=== PATIENT | male | born 1925 | race Caucasian/White ===

== ENCOUNTER 2016-08-14 22:13 | Inpatient (IN) | payer OTHER ==
[~2016-08-14] VITALS: Ht 177.8 cm; Wt 97.8 kg
[~2016-08-14 22:13] MED LIST: ACET-1311 PO; ACET1TAB84 PO; AVD5 PO; CARB25TA16 PO; CITA10TA4 PO; DXY100 PO; FRRS300 PO; FURO-85 PO; HYDR-5688 PO; LEVO25TA PO; LISI-729 PO; MELA1TAB3 PO; METO25TA56 PO; MOME50SP5 NAE; MOML PO; POLY335019 PO; POTA20TA16 PO; PRD5 PO; PRT40 PO; SIME80CH PO; SNK PO; SNM/25100 PO; TAMS0.4C38 PO; TRMCR130WC TOP
[2016-08-14] MEDS ORDERED: SENN-61 PO (23:09)
[2016-08-14] MEDS ORDERED: CARB25TA16 PO (23:09)
[2016-08-14] MEDS ORDERED: MELA1TAB54 PO (23:09)
[2016-08-14] MEDS ORDERED: MOME6000 NAE (23:09)
[2016-08-14] MEDS ORDERED: DUTA0.5C PO (23:09)
[2016-08-14] MEDS ORDERED: CYAN100020 PO (23:11)
[2016-08-14] MEDS ORDERED: ZNTT/150 PO ×2 (23:11)
[2016-08-14] MEDS ORDERED: DOCU-94 PO (23:11)
[2016-08-14 23:20] LABS: BASO % 0.7 %; BASO ABS # 0.06 K/uL (0-0.2); COMPLETE YES; EOS % 6.7 %; HEMATOCRIT 35.1 % (42-52); IG% 0.2 %; LYMPH % 17.9 %; LYMPH ABS # 1.45 K/uL (1.2-3.4); MEAN CELL VOLUME 92.6 fL (80-100); MEAN CORPUSCULAR HEMOGLOBIN 30.9 pg (25-34); MEAN CORPUSCULAR HGB CONC 33.3 g/dl (32-36); MEAN PLATELET VOLUME 9.2 fL (7.4-10.4); NEUT % 66.5 %; PLATELET COUNT 356 K/uL (130-400); RED BLOOD COUNT 3.79 M/uL (4.7-6.1); WHITE BLOOD COUNT 8.12 K/uL (4.8-10.8)
[2016-08-14 23:36] LABS: ALT/SGPT 6 U/L (12-78); BLOOD UREA NITROGEN 23 mg/dl (7-18); BUN/CREATININE RATIO 20.8 (10-20); CALCIUM 8.5 mg/dl (8.5-10.1); CARBON DIOXIDE 24 mmol/L (21-32); CHLORIDE 106 mmol/L (98-107); GLUCOSE 104 mg/dl (70-99); MAGNESIUM 2.2 mg/dl (1.8-2.4); POTASSIUM 4.6 mmol/L (3.5-5.1); SODIUM 140 mmol/L (136-145)
[2016-08-14 23:44] LABS: ALKALINE PHOSPHATASE 131 U/L (45-117); AST/SGOT 14 U/L (15-37); CKMB/CK RATIO 2.3 (0-3.0)
[2016-08-15] VITALS (8 sets, daily range): BP systolic 120–151; BP diastolic 64–79; PULSE 77–97; TEMP 36.6–36.8; O2SAT 95–98; Ht 177.8 cm; Wt 97.8 kg
[2016-08-15 00:05] LABS: PARTIAL THROMBOPLASTIN RATIO 1.2; PROTHROMBIN TIME (PATIENT) 10.4 SECONDS (9.0-12.0)
[2016-08-15] MEDS ORDERED: LEVAQUIN 750MG / 150ML D5W IV STA (00:55)
[2016-08-15 00:58] LABS: URINE APPEARANCE CLEAR (CLEAR); URINE BILIRUBIN NEG (NEG); URINE COLOR YELLOW; URINE EPITHELIAL CELL AUTO >30 /lpf (0-5); URINE NITRITE POS (NEG); URINE PH 5.5 (4.5-7.5); URINE SPECIFIC GRAVITY 1.018 (1.000-1.030); UROBILINOGEN NEG (NEG)
[2016-08-15 01:02] LABS: MANUAL MICROSCOPIC REQUIRED? NO; REVIEW REQ? NO
[2016-08-15] MEDS ORDERED: ACETAMINOPHEN 325 MG TAB PO PRN (01:45)
[2016-08-15] MEDS ORDERED: ONDANSETRON INJ 2 MG/ML 2 ML VIAL IV PRN (01:45)
[2016-08-15] MEDS ORDERED: MAGNESIUM HYDROXIDE SUSP 30 ML UDC PO PRN ×2 (01:45)
[2016-08-15] MEDS ORDERED: ALUMINUM/MAGNESIUM/SIMETH (MAALOX MAX) 30 ML UDC PO PRN (01:45)
[2016-08-15] MEDS ORDERED: POLYETHYLENE (MIRALAX) 17 GM PACK PO PRN (01:45)
--- NOTE | 2016-08-15 02:32 | History and Physical ---
History & Physical Date & Time of Service: Aug 15, 2016 at 02:14 Chief Complaint: SOB Primary Care Physician: Loni Hodges MD History of Present Illness Source: patient 89 y/o M with Hx of Parkinson disease, HTN, BPH. Presents from home with weakness and confusion at behest of family. The pt himself was not sure why he was in the hospital although he was able to have a lucid conversation at the time of admission. He does not recall any confusion, denies any fevers, SOB, cough, diarrhea or dysuria. Initial labs reveal a (+) UA. Past Medical/Surgical History Medical Problems: (1) BPH (benign prostatic hyperplasia) Status: Chronic (2) Chronic edema Permanent Comment: BLLE Status: Chronic (3) Dyslipidemia Status: Chronic (4) Hemorrhoids Status: Chronic (5) HTN (hypertension) Status: Chronic (6) Osteoarthritis Status: Chronic (7) Parkinsonism Status: Chronic (8) Paroxysmal atrial fibrillation Permanent Comment: onset 10/2013, s/p conversion to sinus with metoprolol Status: Chronic (9) Spinal stenosis Status: Chronic Surgical Problems: (1) History of carpal tunnel surgery of left wrist Status: Chronic (2) History of knee replacement Status: Resolved (3) Hx of tonsillectomy Status: Resolved (4) Status post laparoscopic hernia repair Status: Chronic Family History COPD (chronic obstructive pulmonary disease) Social History Smoking Status: Never Smoker Marital Status: Housing status: lives with family Occupational Status: retired Immunizations History of Influenza Vaccine: Yes History of Tetanus Vaccine?: Unknown History of Pneumococcal: less than 10yrs ago. History of Hepatitis B Vaccine: No Multi-Drug Resistant Organisms History of MDRO: Yes Type of MDRO: MRSA Allergies Coded Allergies: Piperacillin (Verified Allergy, Intermediate, rash, 08/14/16) Tazobactam (Verified Allergy, Intermediate, rash, 08/14/16) Vancomycin (Verified Allergy, Intermediate, Rash, 08/14/16) Lorazepam (Verified Allergy, Mild, DELIRIUM, 08/14/16) Home Medications Scheduled Acetaminophen (Tylenol Arthritis Ext Rel), 650 MG PO TID Acetaminophen (Tylenol), 325 MG PO TID Citalopram Hydrobromide (Citalopram Hydrobromide), 10 MG PO DAILY Cyanocobalamin (Vitamin B12), 1,000 MCG PO QAM Docusate Sodium (Colace), 1 CAP PO BID Dutasteride (Avodart), 0.5 MG PO QAM Furosemide (Lasix), 20 MG PO QAM Levodopa/Carbidopa (Sinemet 25MG/100MG), 2 TAB PO TID@0900,1300,1700 Levodopa/Carbidopa (Sinemet Cr 25MG/100MG), 1 TAB PO HS Levothyroxine Sodium (Synthroid), 25 MCG PO DAILY Lisinopril (Zestril), 2.5 MG PO QAM Melatonin (Melatonin), 5 MG PO HS Metoprolol Tartrate (Lopressor) (Lopressor), 25 MG PO QAM Mometasone Furoate (Nasal) (Mometasone Furoate), 2 SPRAY DIETER HS Polyethylene Glycol 3350 (Miralax), 17 GM PO DAILY Potassium Ext Rel (Klor-Con), 10 MEQ PO Q2D Ranitidine (Zantac), 150 MG PO DAILY Ranitidine HCl (Zantac), 75 MG PO QPM Tamsulosin Hcl (Flomax), 0.4 MG PO QPM Triamcinolone Acet (Aristocort 0.1%), 1 APPLN TOP DAILY Scheduled PRN Magnesium Hydroxide (Milk Of Magnesia), 30 ML PO DAILY PRN for NO BM 3 DAYS Senna (Senokot), 2 TAB PO QAM PRN for Constipation Simethicone (Gas-X), 80 MG PO QID PRN for GAS Review of Systems May not be a reliable historian as he does not recall earlier confusion - currently denies any symptoms including dysuria - all systems negative excepting as per HPI per family. Constitutional: + sweats Respiratory: No dyspnea at rest, No dyspnea on exertion, No shortness of breath Physical Exam Vital Signs Date Time Temp Pulse Resp B/P Pulse Ox O2 Delivery O2 Flow Rate FiO2 08/15/16 00:51 82 16 146/76 98 Room Air 08/14/16 22:42 81 08/14/16 22:41 Room Air 08/14/16 22:36 36.7 85 18 153/89 96 Room Air 08/14/16 22:36 Room Air General Appearance: WD/WN, no apparent distress, + pertinent finding (PLeasant elderly male AAO x 2 - no distress) Head: normocephalic, atraumatic Eyes: normal inspection, EOMI ENT: normal ENT inspection, pharynx normal Neck: supple, thyroid normal Respiratory/Chest: chest non-tender, lungs clear, normal breath sounds, no respiratory distress, no accessory muscle use Cardiovascular: regular rate, rhythm, no edema, no gallop, no JVD, no murmur, normal peripheral pulses Abdomen/GI: normal bowel sounds, non tender, soft Back: normal inspection, no CVA tenderness Extremities/Musculoskelatal: + pedal edema (3+ edema B/L) Neurologic/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: 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, no motor/sensory deficits, alert, normal mood/affect, normal reflexes, + pertinent finding (AAO x 2) Skin: normal color, warm/dry, no rash Diagnostics Laboratory Results Results Past 24 Hours Test 08/14/16 23:09 08/14/16 23:36 08/15/16 00:43 Range/Units White Blood Count 8.12 4.8-10.8 K/uL Red Blood Count 3.79 4.7-6.1 M/uL Hemoglobin 11.7 14.0-18.0 g/dL Hematocrit 35.1 42-52 % Mean Corpuscular Volume 92.6 80-100 fL Mean Corpuscular Hemoglobin 30.9 25-34 pg Mean Corpuscular Hemoglobin Concent 33.3 32-36 g/dl Platelet Count 356 130-400 K/uL Mean Platelet Volume 9.2 7.4-10.4 fL Neutrophils (%) (Auto) 66.5 % Lymphocytes (%) (Auto) 17.9 % Monocytes (%) (Auto) 8.0 % Eosinophils (%) (Auto) 6.7 % Basophils (%) (Auto) 0.7 % Neutrophils # (Auto) 5.40 1.4-6.5 K/uL Lymphocytes # (Auto) 1.45 1.2-3.4 K/uL Monocytes # (Auto) 0.65 0.11-0.59 K/uL Eosinophils # (Auto) 0.54 0-0.5 K/uL Basophils # (Auto) 0.06 0-0.2 K/uL RDW Standard Deviation 52.9 36.4-46.3 fL RDW Coefficient of Variation 15.6 11.5-14.5 % Immature Granulocyte % (Auto) 0.2 % Immature Granulocyte # (Auto) 0.02 0.00-0.02 K/uL Sodium Level 140 136-145 mmol/L Potassium Level 4.6 3.5-5.1 mmol/L Chloride Level 106 98-107 mmol/L Carbon Dioxide Level 24 21-32 mmol/L Anion Gap 10.0 3-11 mmol/L Blood Urea Nitrogen 23 7-18 mg/dl Creatinine 1.10 0.60-1.40 mg/dl Est Creatinine Clear Calc Drug Dose 53.4 ml/min Estimated GFR () 68.6 Estimated GFR (Non- 59.2 BUN/Creatinine Ratio 20.8 10-20 Random Glucose 104 70-99 mg/dl Calcium Level 8.5 8.5-10.1 mg/dl Magnesium Level 2.2 1.8-2.4 mg/dl Total Bilirubin 0.3 0.2-1 mg/dl Direct Bilirubin < 0.1 0-0.2 mg/dl Aspartate Amino Transf (AST/SGOT) 14 15-37 U/L Alanine Aminotransferase (ALT/SGPT) 6 12-78 U/L Alkaline Phosphatase 131 45-117 U/L Total Creatine Kinase 30 39-308 U/L Creatine Kinase MB 0.7 0.5-3.6 ng/ml Creatine Kinase MB Ratio 2.3 0-3.0 Troponin I < 0.015 0-0.045 ng/ml Pro-B-Type Natriuretic Peptide 741 0-1800 pg/ml Total Protein 7.5 6.4-8.2 gm/dl Albumin 3.1 3.4-5.0 gm/dl Lipase 163 73-393 U/L Thyroid Stimulating Hormone (TSH) 1.740 0.300-4.500 uIu/ml Prothrombin Time 10.4 9.0-12.0 SECONDS Prothromb Time International Ratio 1.0 0.9-1.1 Activated Partial Thromboplast Time 30.3 21.0-31.0 SECONDS Partial Thromboplastin Ratio 1.2 Urine Color YELLOW Urine Appearance CLEAR CLEAR Urine pH 5.5 4.5-7.5 Urine Specific [place] 1.018 1.000-1.030 Urine Protein NEG NEG Urine Glucose (UA) NEG NEG Urine Ketones NEG NEG Urine Occult Blood NEG NEG Urine Nitrite POS NEG Urine Bilirubin NEG NEG Urine Urobilinogen NEG NEG Urine Leukocyte Esterase SMALL NEG Urine WBC (Auto) 10-30 0-5 /hpf Urine RBC (Auto) 0-4 0-4 /hpf Urine Hyaline Casts (Auto) 1-5 0-5 /lpf Urine Epithelial Cells (Auto) >30 0-5 /lpf Urine Bacteria (Auto) 4+ NEG Microbiology Results 08/15/16 Urine Culture, Received Pending Diagnostic Radiology Head CT negative for acute findings Normal EKG Impression Assessment and Plan 89 y/o M with Hx of Parkinson disease, HTN, BPH. Presents from home with weakness and confusion at behest of family. The pt himself was not sure why he was in the hospital although he was able to have a lucid conversation at the time of admission. He does not recall any confusion, denies any fevers, SOB, cough, diarrhea or dysuria. Initial labs reveal a (+) UA. 1) AMS - weakness - likely due to UTI - underlying Parkinson may contribute - pt placed on Levaquin pending culture results - will treat agitation PRN although he is calm and lucid on admission. 2) Parkinson disease - cont Sinemet. 3) HTN - cont home meds 4) LE edema - cont lasix - may need dose adjustment Full code - Heparin prophylaxis Total time for this admit including cahrt review , review of meds, labs, imaging , EKG - discussion with pt and ER attending 32 min Level of Care Med/Surg Resuscitation Status FULL RESUSCITATION VTE Prophylaxis VTE Risk Assessment Done? Y/N: Yes Risk Level: Moderate Given or contraindicated: Unfractionated heparin SQ
--- NOTE | 2016-08-15 03:01 | EMERGENCY ROOM VISIT NOTE ---
History Report prepared by Ruth: David Aleman Under the Supervision of: Dr. Александр Hayden M.D. First contact with patient: 22:26 Chief Complaint: SHORTNESS OF BREATH Stated Complaint: SOB History of Present Illness The patient is a 89 year old male who presents to the Emergency Room with complaints of shortness of breath that began this evening. The patient has not been sleeping well over the past few days due to strange dreams. Five and a half hours ago the patient was in a deep sleep. His family tried to wake him up an hour later to get him to take his medicine. Per the family, he got violent. They state that his breathing was labored while he was sleeping. The home nurse states that he has a change in his left lung. He has a past medical history of Parkinson's Disease. The family states that he is better than normal at the moment in that regard. He is not disoriented. He has not urinated much today. His last bowel movement was yesterday. The patient states that he feels like he took a "happy pill." He also feels tight around his abdomen. He received 40 of his Lasix today. Patient denies LOC, headache, fevers, chills, diaphoresis, visual changes, neck pain, chest pain, nausea, vomiting, abdominal pain, back pain, melena, hematochezia, urinary symptoms, numbness, weakness, lymphadenopathy, rash, or other complaints. Source of History: patient, family Onset: this evening Position: other (respiratory symptoms ) Symptom Intensity: mild Quality: other (shortness of breath) Timing: constant Associated Symptoms: + abdominal pain, + urinary symptoms Review of Systems See HPI for pertinent positives and negatives. A total of ten systems were reviewed and were otherwise negative. Past Medical & Surgical Medical Problems: (1) Abdominal pain (2) Altered mental status (3) BPH (benign prostatic hyperplasia) (4) Chronic edema (5) Dyslipidemia (6) GI bleed (7) Hemorrhoids (8) HTN (hypertension) (9) Osteoarthritis (10) Parkinsonism (11) Parkinsons disease (12) Paroxysmal atrial fibrillation (13) Spinal stenosis (14) UTI (urinary tract infection) Surgical Problems: (1) History of carpal tunnel surgery of left wrist (2) History of knee replacement (3) Hx of tonsillectomy (4) Status post laparoscopic hernia repair Family History COPD (chronic obstructive pulmonary disease) Social History Smoking Status: Never Smoker Smokeless Tobacco Use: No Drug Use: none Marital Status: Housing Status: assisted living Occupation Status: retired Current/Historical Medications Scheduled Acetaminophen (Tylenol Arthritis Ext Rel), 650 MG PO TID Acetaminophen (Tylenol), 325 MG PO TID Citalopram Hydrobromide (Citalopram Hydrobromide), 10 MG PO DAILY Cyanocobalamin (Vitamin B12), 1,000 MCG PO QAM Docusate Sodium (Colace), 1 CAP PO BID Dutasteride (Avodart), 0.5 MG PO QAM Furosemide (Lasix), 20 MG PO QAM Levodopa/Carbidopa (Sinemet 25MG/100MG), 2 TAB PO TID@0900,1300,1700 Levodopa/Carbidopa (Sinemet Cr 25MG/100MG), 1 TAB PO HS Levothyroxine Sodium (Synthroid), 25 MCG PO DAILY Lisinopril (Zestril), 2.5 MG PO QAM Melatonin (Melatonin), 5 MG PO HS Metoprolol Tartrate (Lopressor) (Lopressor), 25 MG PO QAM Mometasone Furoate (Nasal) (Mometasone Furoate), 2 SPRAY DIETER HS Polyethylene Glycol 3350 (Miralax), 17 GM PO DAILY Potassium Ext Rel (Klor-Con), 10 MEQ PO Q2D Ranitidine (Zantac), 150 MG PO DAILY Ranitidine HCl (Zantac), 75 MG PO QPM Tamsulosin Hcl (Flomax), 0.4 MG PO QPM Triamcinolone Acet (Aristocort 0.1%), 1 APPLN TOP DAILY Scheduled PRN Magnesium Hydroxide (Milk Of Magnesia), 30 ML PO DAILY PRN for NO BM 3 DAYS Senna (Senokot), 2 TAB PO QAM PRN for Constipation Simethicone (Gas-X), 80 MG PO QID PRN for GAS Allergies Coded Allergies: Piperacillin (Verified Allergy, Intermediate, rash, 08/14/16) Tazobactam (Verified Allergy, Intermediate, rash, 08/14/16) Vancomycin (Verified Allergy, Intermediate, Rash, 08/14/16) Lorazepam (Verified Allergy, Mild, DELIRIUM, 08/14/16) Physical Exam Vital Signs Date Time Temp Pulse Resp B/P Pulse Ox O2 Delivery O2 Flow Rate FiO2 08/15/16 02:30 89 16 138/79 96 Room Air 08/15/16 00:51 82 16 146/76 98 Room Air 08/14/16 22:42 81 08/14/16 22:41 Room Air 08/14/16 22:36 36.7 85 18 153/89 96 Room Air 08/14/16 22:36 Room Air Physical Exam GENERAL: Awake, alert, well-appearing, in no distress HENT: Normocephalic, atraumatic. Oropharynx unremarkable. EYES: Normal conjunctiva. Sclera non-icteric. NECK: Supple. No nuchal rigidity. FROM. No JVD. RESPIRATORY: Clear to auscultation. CARDIAC: Regular rate, normal rhythm. Extremities warm and well perfused. Pulses equal. ABDOMEN: Soft, non-distended. No tenderness to palpation. No rebound or guarding. No masses. RECTAL: Deferred. MUSCULOSKELETAL: Chest examination reveals no tenderness. The back is symmetrical on inspection without obvious abnormality. There is no CVA tenderness to palpation. No joint edema. LOWER EXTREMITIES: Calves are equal size bilaterally and non-tender. 2+ bilateral edema. No discoloration. NEURO: Normal sensorium. No sensory or motor deficits noted. SKIN: No rash or jaundice noted. Medical Decision & Procedures ER Provider Diagnostic Interpretation: Radiology results are stated below per my review and radiologist interpretation: Chest X-ray: Findings: A chest x-ray was performed and revealed no pneumothorax, infiltrate, pulmonary edema, free air under the diaphragm, or wide mediastinum. There is right sided pleural effusion. Per hi CT HEAD: Comparison: MRI dated 05/12/2014. No CT evidence of acute intracranial abnormality. Atrophy and chronic small vessel ischemic disease. Radiologist: Tiffanie Vega MD Laboratory Results 08/14/16 23:09 Red Blood Count 3.79, Mean Corpuscular Volume 92.6, Mean Corpuscular Hemoglobin 30.9, Mean Corpuscular Hemoglobin Concent 33.3, Mean Platelet Volume 9.2, Neutrophils (%) (Auto) 66.5, Lymphocytes (%) (Auto) 17.9, Monocytes (%) (Auto) 8.0, Eosinophils (%) (Auto) 6.7, Basophils (%) (Auto) 0.7, Neutrophils # (Auto) 5.40, Lymphocytes # (Auto) 1.45, Monocytes # (Auto) 0.65, Eosinophils # (Auto) 0.54, Basophils # (Auto) 0.06 08/14/16 23:09 Test 08/14/16 23:09 08/14/16 23:36 08/15/16 00:43 White Blood Count 8.12 K/uL (4.8-10.8) Red Blood Count 3.79 M/uL (4.7-6.1) Hemoglobin 11.7 g/dL (14.0-18.0) Hematocrit 35.1 % (42-52) Mean Corpuscular Volume 92.6 fL (80-100) Mean Corpuscular Hemoglobin 30.9 pg (25-34) Mean Corpuscular Hemoglobin Concent 33.3 g/dl (32-36) Platelet Count 356 K/uL (130-400) Mean Platelet Volume 9.2 fL (7.4-10.4) Neutrophils (%) (Auto) 66.5 % Lymphocytes (%) (Auto) 17.9 % Monocytes (%) (Auto) 8.0 % Eosinophils (%) (Auto) 6.7 % Basophils (%) (Auto) 0.7 % Neutrophils # (Auto) 5.40 K/uL (1.4-6.5) Lymphocytes # (Auto) 1.45 K/uL (1.2-3.4) Monocytes # (Auto) 0.65 K/uL (0.11-0.59) Eosinophils # (Auto) 0.54 K/uL (0-0.5) Basophils # (Auto) 0.06 K/uL (0-0.2) RDW Standard Deviation 52.9 fL (36.4-46.3) RDW Coefficient of Variation 15.6 % (11.5-14.5) Immature Granulocyte % (Auto) 0.2 % Immature Granulocyte # (Auto) 0.02 K/uL (0.00-0.02) Anion Gap 10.0 mmol/L (3-11) Est Creatinine Clear Calc Drug Dose 53.4 ml/min Estimated GFR () 68.6 Estimated GFR (Non- 59.2 BUN/Creatinine Ratio 20.8 (10-20) Calcium Level 8.5 mg/dl (8.5-10.1) Magnesium Level 2.2 mg/dl (1.8-2.4) Total Bilirubin 0.3 mg/dl (0.2-1) Direct Bilirubin < 0.1 mg/dl (0-0.2) Aspartate Amino Transf (AST/SGOT) 14 U/L (15-37) Alanine Aminotransferase (ALT/SGPT) 6 U/L (12-78) Alkaline Phosphatase 131 U/L (45-117) Total Creatine Kinase 30 U/L (39-308) Creatine Kinase MB 0.7 ng/ml (0.5-3.6) Creatine Kinase MB Ratio 2.3 (0-3.0) Troponin I < 0.015 ng/ml (0-0.045) Pro-B-Type Natriuretic Peptide 741 pg/ml (0-1800) Total Protein 7.5 gm/dl (6.4-8.2) Albumin 3.1 gm/dl (3.4-5.0) Lipase 163 U/L (73-393) Thyroid Stimulating Hormone (TSH) 1.740 uIu/ml (0.300-4.500) Prothrombin Time 10.4 SECONDS (9.0-12.0) Prothromb Time International Ratio 1.0 (0.9-1.1) Activated Partial Thromboplast Time 30.3 SECONDS (21.0-31.0) Partial Thromboplastin Ratio 1.2 Urine Color YELLOW Urine Appearance CLEAR (CLEAR) Urine pH 5.5 (4.5-7.5) Urine Specific [place] 1.018 (1.000-1.030) Urine Protein NEG (NEG) Urine Glucose (UA) NEG (NEG) Urine Ketones NEG (NEG) Urine Occult Blood NEG (NEG) Urine Nitrite POS (NEG) Urine Bilirubin NEG (NEG) Urine Urobilinogen NEG (NEG) Urine Leukocyte Esterase SMALL (NEG) Urine WBC (Auto) 10-30 /hpf (0-5) Urine RBC (Auto) 0-4 /hpf (0-4) Urine Hyaline Casts (Auto) 1-5 /lpf (0-5) Urine Epithelial Cells (Auto) >30 /lpf (0-5) Urine Bacteria (Auto) 4+ (NEG) Laboratory results reviewed by me Medications Administered Medications (Trade) Dose Ordered Sig/[place] Route Start Time Stop Time Status Last Admin Dose Admin Levofloxacin (Levaquin / D5W) 750 mg NOW STAT IV 08/15/16 00:55 08/15/16 00:57 DC 08/15/16 00:55 750 MG ECG Indication: SOB/dyspnea Rate (beats per minute): 80 Rhythm: normal sinus Findings: no acute ischemic change, no ectopy ED Course 2226: The patient was evaluated in room C3. A complete history and physical exam was performed. 0055: Levofloxacin 750 mg IV 0100: The patient's family wants him to stay in the hospital because of his condition. Also, his urine dip stick is concerning for infection. 0136: Upon reexamination, the patient was resting. I discussed the test results and treatment plan with him. The patient will be evaluated by Dr. Micah ENGLAND, for further management. Medical Decision Triage Nursing notes reviewed. The patient's presentation and history were concerning for weakness, confusion. Etiologies such as metabolic, infection, hypo/hyperglycemia, electrolyte abnormalities, cardiac sources, intracerebral event, toxicologic, neurologic, as well as others were entertained. The patient was evaluated. Blood work was obtained. The patient underwent CT imaging a chest x-ray which were unremarkable. The patient had chronic changes noted. Chronic pleural effusion. The patient had an unremarkable CBC and chemistry panel. Cardiac enzymes are negative. The patient's urinalysis is grossly concerning for infection. He has history of penicillin allergy. The patient was given a dose of IV Levaquin. I did discuss treatment in and out of the hospital. Because of his increased weakness and confusion family was concerned with his ability to go home safely. Internal medicine was consulted. He was evaluated for further management. The chart was completed utilizing [employer] Speech voice recognition software. Grammatical errors, random word insertions, pronoun errors, and incomplete sentences are an occasional consequence of this system due to software limitations, ambient noise, and hardware issues. Any formal questions or concerns about the content, text, or information contained within the body of this dictation should be directly addressed to the physician for clarification. Consults Time Called: 013 Consulting Physician: Dr. Micah ENGLAND Returned Call: [phone] He will be evaluating the patient for further management. Impression Primary Impression: Metabolic encephalopathy Additional Impressions: UTI (urinary tract infection) Weakness Scribe Attestation The scribe's documentation has been prepared under my direction and personally reviewed by me in its entirety. I confirm that the note above accurately reflects all work, treatment, procedures, and medical decision making performed by me. Departure Information Dispostion Being Evaluated By Hospitalist Referrals Loni Hodges MD (PCP) Patient Instructions My [facility] Problem Qualifiers
[2016-08-15] MEDS ORDERED: LEVOFLOXACIN CONSULT ACTIVE PRN (05:00)
[2016-08-15] MEDS: LEVOTHYROXINE 25 MCG TAB PO SCH (06:16)
[2016-08-15] MEDS: HEPARIN SOD 5000 UNIT/0.5 ML CARP SQ SCH ×3 (06:18→20:11)
--- NOTE | 2016-08-15 07:12 | DIAGNOSTIC IMAGING REPORT ---
CT SCAN OF THE BRAIN WITHOUT IV CONTRAST CLINICAL HISTORY: Generalized weakness. COMPARISON STUDY: CT of the brain dated 11/12/2013. TECHNIQUE: Unenhanced axial CT scan of the brain is performed from the vertex to the skull base. CT DOSE: 1302.24 mGy.cm FINDINGS: Brain parenchyma: There are age-related involutional changes noting mild subcortical and periventricular microangiopathic change. There is no hemorrhage, mass effect, or evidence of acute territorial ischemia by CT criteria. Angelo-white matter is preserved. No extra-axial fluid collection is seen. Ventricles, sulci, cisterns: Prominent secondary to involutional change. Intracranial vasculature: There is atherosclerotic calcification of the cavernous carotid and vertebral arteries. Calvarium: Unremarkable. Sinuses and mastoids: Frothy secretions are present in the sphenoid sinuses. The remaining Visualized paranasal sinuses are clear. The mastoid air cells are well pneumatized. Orbits: The bony orbits are grossly intact. There are bilateral ocular lens implants. IMPRESSION: There is no hemorrhage, mass effect, or evidence of acute territorial ischemia by CT criteria. Electronically signed by: Cristobal Ogden M.D. 08/15/2016 7:11 AM Dictated Date/Time: 08/15/2016 7:09 AM
--- NOTE | 2016-08-15 07:27 | DIAGNOSTIC IMAGING REPORT ---
SINGLE VIEW CHEST CLINICAL HISTORY: Generalized weakness. FINDINGS: An AP, portable, upright chest radiograph is compared to study dated 06/05/2016. The examination is degraded by portable technique and patient rotation. The heart is enlarged and there is atherosclerotic calcification of the thoracic aorta. There is pulmonary vascular congestion. There is a right pleural effusion with right basilar consolidation. Calcified granulomas are noted in the right upper lobe. Biapical scarring is observed. No pneumothorax is seen. The skeletal structures are osteopenic. Degenerative changes noted throughout the thoracic spine. Fusion hardware is seen in the lower cervical region. IMPRESSION: 1. Cardiomegaly with evidence of congestive failure. 2. There is a right pleural effusion with right basilar consolidation. This is similar in appearance to the 06/05/2016 examination. Electronically signed by: Cristobal Ogden M.D. 08/15/2016 7:26 AM Dictated Date/Time: 08/15/2016 7:24 AM
[2016-08-15] MEDS: AVODART~ORDER AWAITING ACTION SCH ×2 (08:00→16:00)
[2016-08-15] MEDS ORDERED: CITALOPRAM 20 MG TAB PO SCH (08:00)
[2016-08-15] MEDS ORDERED: FUROSEMIDE 20 MG TAB PO SCH (08:00)
[2016-08-15] MEDS: FLUTICASONE PROPIONATE NA SPR 16 GM BTL NAE SCH (08:35)
[2016-08-15] MEDS: METOPROLOL TARTRATE 25 MG TAB PO SCH (08:35)
[2016-08-15] MEDS: CITALOPRAM 20 MG TAB PO SCH (08:36)
[2016-08-15] MEDS: CYANOCOBALAMIN 500 MCG TAB (VIT B-12) PO SCH (08:36)
[2016-08-15] MEDS: DOCUSATE SODIUM 100 MG CAP PO SCH ×2 (08:36→20:04)
[2016-08-15] MEDS: SENNA 8.6 MG TAB PO PRN (08:36)
[2016-08-15] MEDS: CARBIDOPA/LEVODOPA 25/100MG TAB PO SCH ×3 (08:36→16:45)
[2016-08-15] MEDS: TRIAMCINOLONE ACET 0.1% CR 15 GM TUBE EXT SCH (08:37)
[2016-08-15] MEDS: RANITIDINE HCL 150 MG TAB PO SCH ×2 (08:37→20:04)
[2016-08-15] MEDS: LISINOPRIL 2.5 MG TAB PO SCH (08:37)
[2016-08-15] MEDS ORDERED: POTASSIUM CHLORIDE 20 MEQ TABCR PO SCH (09:00)
--- NOTE | 2016-08-15 16:09 | Progress Note ---
Subjective Date of Service: Aug 15, 2016. Subjective Pt evaluation today including: conversation w/ patient, conversation w/ family , physical exam, chart review, lab review Problem List Medical Problems: (1) Fecal impaction Status: Acute (2) K92.0 Status: Acute (3) Metabolic encephalopathy Status: Acute (4) Non-ST elevation [place] (NSTEMI) Status: Acute (5) Pneumonia Status: Acute (6) Stool guaiac positive Status: Acute (7) Upper GI bleed Status: Acute (8) Weakness Status: Acute Review of Systems Constitutional: No chills, No fatigue, No fever, No problem reported, No see HPI, No sweats, No weakness, No weight loss Eyes: No diplopia, No discharge, No eye pain, No problem reported, No redness, No see HPI, No worsening of vision ENT: No dental problems, No hearing loss, No nasal symptoms, No problem reported, No see HPI, No sore throat, No tinnitus, No trouble swallowing, No unusual epistaxis Respiratory: No cough, No dyspnea at rest, No dyspnea on exertion, No hemoptysis, No problem reported, No see HPI, No shortness of breath, No sputum, No wheezing Cardiac: No PND, No chest pain, No claudication, No edema, No orthopnea, No palpitations, No problem reported, No see HPI Abdomen: No GI bleeding, No constipation, No diarrhea, No nausea, No pain, No problem reported, No see HPI, No vomiting Musculoskeletal: No calf pain, No joint pain, No muscle pain, No problem reported, No see HPI, No swelling Neurologic: No balance problems, No memory loss, No numbness/tingling, No paralysis, No problem reported, No see HPI, No vertigo, No weakness Psychiatric: No anhedonism, No anxiety, No depression symptoms, No insomnia, No problem reported, No see HPI, No substance abuse Heme: No abnormal bleeding/bruising, No clotting problems, No night sweats, No problem reported, No see HPI, No swollen lymph nodes Skin: No bleeding, No color change, No itch, No new/changing skin lesions, No problem reported, No rash, No see HPI Medications Current Inpatient Medications Medications (Trade) Dose Ordered Sig/Concetta Route Start Time Stop Time Status Last Admin Dose Admin Docusate Sodium (coLACE CAP) 100 mg BID PO 08/15/16 08:00 3/17/17 08:59 08/15/16 08:36 100 MG Furosemide (Lasix Tab) 20 mg QAM PO 08/15/16 08:00 09/14/16 08:59 08/15/16 08:36 20 MG Carbidopa/Levodopa (Sinemet 25/ 100MG Tab) 2 tab TID@0900,1300,1700 PO 08/15/16 09:00 09/14/16 08:59 08/15/16 12:54 2 TAB Carbidopa/Levodopa (Sinemet Cr 25/ 100MG Tab) 1 tab HS PO 08/15/16 21:00 09/14/16 20:59 Levothyroxine Sodium (Synthroid Tab) 25 mcg DAILYBB PO 08/15/16 06:30 09/14/16 06:29 08/15/16 06:16 25 MCG Lisinopril (Zestril Tab) 2.5 mg QAM PO 08/15/16 08:00 09/14/16 08:59 08/15/16 08:37 2.5 MG Metoprolol Tartrate (Lopressor Tab) 25 mg QAM PO 08/15/16 08:00 09/14/16 08:59 08/15/16 08:35 25 MG Potassium Chloride (Klor-Con Tab) 10 meq Q2D PO 08/15/16 09:00 09/14/16 08:59 08/15/16 08:36 10 MEQ Ranitidine HCl (zANTac TAB) 150 mg DAILY PO 08/15/16 08:00 09/14/16 08:59 08/15/16 08:37 150 MG Ranitidine HCl (zANTac TAB) 75 mg QPM PO 08/15/16 21:00 09/14/16 20:59 Senna (Senokot Tab) 17.2 mg QAM PRN PO 08/15/16 01:45 09/14/16 01:44 08/15/16 08:36 17.2 MG Tamsulosin HCl (Flomax Cap) 0.4 mg QPM PO 08/15/16 21:00 09/14/16 20:59 Triamcinolone Acetonide (Kenalog 0.1% Cream) 1 appln DAILY EXT 08/15/16 08:00 3/17/17 08:59 08/15/16 08:37 1 APPLN Cyanocobalamin (Vitamin B-12 Tab) 1,000 mcg QAM PO 08/15/16 08:00 09/14/16 08:59 08/15/16 08:36 1,000 MCG Miscellaneous Information (Order Awaiting Action) 1 ea QS N/A 08/15/16 08:00 09/14/16 07:59 Fluticasone Propionate (Flonase Nasal [place]) 2 sprays HS DIETER 08/15/16 21:00 09/14/16 20:59 08/15/16 08:35 2 SPRAYS Heparin Sodium (Porcine) (Heparin Sq 5000 Unit/0.5ml) 5,000 unit Q8H SQ 08/15/16 06:00 09/14/16 05:59 08/15/16 14:50 5,000 UNIT Acetaminophen (Tylenol Tab) 650 mg Q4H PRN PO 08/15/16 01:45 09/14/16 01:44 Al Hydrox/Mg Hydrox/Simethicone (Maalox Max Susp) 15 ml Q4H PRN PO 08/15/16 01:45 09/14/16 01:44 Magnesium Hydroxide (Milk Of Magnesia Susp) 30 ml Q6H PRN PO 08/15/16 01:45 09/14/16 01:44 Polyethylene (Miralax Powder Packet) 17 gm DAILY PRN PO 08/15/16 01:45 09/14/16 01:44 Ondansetron HCl 4 mg 4 mg Q6H PRN IV 08/15/16 01:45 09/14/16 01:44 Levofloxacin/Prmx (Levaquin / D5W/ Premixed D5W) 150 ml @ 100 mls/hr Q24H IV 08/16/16 02:00 08/26/16 01:59 Olanzapine (Zyprexa Zydis Od Tab) 1.25 mg HS PRN PO 08/15/16 01:45 09/14/16 01:44 Citalopram Hydrobromide (celeXA TAB) 10 mg DAILY PO 08/15/16 08:00 09/14/16 07:59 08/15/16 08:36 10 MG Levofloxacin (Consult) 1 ea UD PRN N/A 08/15/16 05:00 09/14/16 04:59 Objective Vital Signs Date Time Temp Pulse Resp B/P Pulse Ox O2 Delivery O2 Flow Rate FiO2 08/15/16 15:06 36.8 77 20 120/64 95 Room Air 08/15/16 07:45 98 Room Air 08/15/16 07:35 36.8 91 20 151/76 96 Room Air 08/15/16 04:32 95 Room Air 08/15/16 03:45 36.7 88 16 145/73 95 Room Air 08/15/16 03:41 36.7 88 16 145/73 95 Room Air 08/15/16 03:25 81 18 131/85 98 08/15/16 02:30 89 16 138/79 96 Room Air 08/15/16 00:51 82 16 146/76 98 Room Air 08/14/16 22:42 81 08/14/16 22:41 Room Air 08/14/16 22:36 36.7 85 18 153/89 96 Room Air 08/14/16 22:36 Room Air Physical Exam General Appearance: WD/WN, no apparent distress Eyes: normal inspection, EOMI ENT: normal ENT inspection, hearing grossly normal Neck: supple Respiratory/Chest: chest non-tender, lungs clear, normal breath sounds, no respiratory distress, no accessory muscle use Cardiovascular: regular rate, rhythm, no edema, no gallop, no JVD, no murmur Abdomen: non tender, soft, no organomegaly Extremities: normal range of motion, non-tender, normal inspection, + calf tenderness, + swelling 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, no motor/sensory deficits, alert, normal mood/affect, oriented x 3 Skin: normal color, warm/dry, no rash Laboratory Results Last 24 Hours Test 08/14/16 23:09 08/14/16 23:36 08/15/16 00:43 White Blood Count 8.12 K/uL Red Blood Count 3.79 M/uL Hemoglobin 11.7 g/dL Hematocrit 35.1 % Mean Corpuscular Volume 92.6 fL Mean Corpuscular Hemoglobin 30.9 pg Mean Corpuscular Hemoglobin Concent 33.3 g/dl Platelet Count 356 K/uL Mean Platelet Volume 9.2 fL Neutrophils (%) (Auto) 66.5 % Lymphocytes (%) (Auto) 17.9 % Monocytes (%) (Auto) 8.0 % Eosinophils (%) (Auto) 6.7 % Basophils (%) (Auto) 0.7 % Neutrophils # (Auto) 5.40 K/uL Lymphocytes # (Auto) 1.45 K/uL Monocytes # (Auto) 0.65 K/uL Eosinophils # (Auto) 0.54 K/uL Basophils # (Auto) 0.06 K/uL RDW Standard Deviation 52.9 fL RDW Coefficient of Variation 15.6 % Immature Granulocyte % (Auto) 0.2 % Immature Granulocyte # (Auto) 0.02 K/uL Sodium Level 140 mmol/L Potassium Level 4.6 mmol/L Chloride Level 106 mmol/L Carbon Dioxide Level 24 mmol/L Anion Gap 10.0 mmol/L Blood Urea Nitrogen 23 mg/dl Creatinine 1.10 mg/dl Est Creatinine Clear Calc Drug Dose 53.4 ml/min Estimated GFR () 68.6 Estimated GFR (Non- 59.2 BUN/Creatinine Ratio 20.8 Random Glucose 104 mg/dl Calcium Level 8.5 mg/dl Magnesium Level 2.2 mg/dl Total Bilirubin 0.3 mg/dl Direct Bilirubin < 0.1 mg/dl Aspartate Amino Transf (AST/SGOT) 14 U/L Alanine Aminotransferase (ALT/SGPT) 6 U/L Alkaline Phosphatase 131 U/L Total Creatine Kinase 30 U/L Creatine Kinase MB 0.7 ng/ml Creatine Kinase MB Ratio 2.3 Troponin I < 0.015 ng/ml Pro-B-Type Natriuretic Peptide 741 pg/ml Total Protein 7.5 gm/dl Albumin 3.1 gm/dl Lipase 163 U/L Thyroid Stimulating Hormone (TSH) 1.740 uIu/ml Prothrombin Time 10.4 SECONDS Prothromb Time International Ratio 1.0 Activated Partial Thromboplast Time 30.3 SECONDS Partial Thromboplastin Ratio 1.2 Urine Color YELLOW Urine Appearance CLEAR Urine pH 5.5 Urine Specific [place] 1.018 Urine Protein NEG Urine Glucose (UA) NEG Urine Ketones NEG Urine Occult Blood NEG Urine Nitrite POS Urine Bilirubin NEG Urine Urobilinogen NEG Urine Leukocyte Esterase SMALL Urine WBC (Auto) 10-30 /hpf Urine RBC (Auto) 0-4 /hpf Urine Hyaline Casts (Auto) 1-5 /lpf Urine Epithelial Cells (Auto) >30 /lpf Urine Bacteria (Auto) 4+ Assessment and Plan 89 y/o M with Hx of Parkinson disease, HTN, BPH. Presents from home with weakness and confusion. He was found to UTI and B/L lower ext swelling/ tenderness 1) AMS (metabolic encephalopathy) / weakness - likely due to UTI continue Levaquin pending culture results check procalcitonin might need urologist eval as an op improving. 2) worsening Parkinson disease cont Sinemet. family requested neurologist evaluation inpatient as it might be contributing to his confusion, will consult neurologist as per their request but explained to them that it is hard to take any therapeutic decision based on his current condition because of the UTI 3) HTN - cont home meds 4) LE edema - check US doppler r/o dvt increase lasix to 20 IV BID 5) DVt prophylaxis with heparin
[2016-08-15] MEDS: CARBIDOPA/LEVODOPA 25/100MG EXT REL TAB PO SCH (20:04)
[2016-08-15] MEDS: FUROSEMIDE INJ 20 MG in SYRINGE 0 ML IV SCH (20:04)
[2016-08-15] MEDS: TAMSULOSIN HCL 0.4 MG CAP PO SCH (20:04)
[2016-08-16] MEDS: LEVOFLOXACIN / D5W 750 MG in PREMIXED IN D5W 150 ML IV SCH (01:13)
[2016-08-16] MEDS: HEPARIN 25,000 UNIT/500ML D5W 500 ML IV PRN ×2 (01:43→17:18)
[2016-08-16 01:55] LABS: BASO % 0.8 %; BASO ABS # 0.06 K/uL (0-0.2); EOS % 4.7 %; HEMATOCRIT 32.6 % (42-52); IG% 0.1 %; LYMPH % 20.4 %; LYMPH ABS # 1.57 K/uL (1.2-3.4); MEAN CELL VOLUME 89.8 fL (80-100); MEAN CORPUSCULAR HEMOGLOBIN 30.3 pg (25-34); MEAN PLATELET VOLUME 8.7 fL (7.4-10.4); MONO % 11.4 %; NEUT % 62.6 %; PLATELET COUNT 308 K/uL (130-400); RED BLOOD COUNT 3.63 M/uL (4.7-6.1)
[2016-08-16 01:58] LABS: COMPLETE YES; MEAN CORPUSCULAR HGB CONC 33.7 g/dl (32-36)
--- NOTE | 2016-08-16 03:22 | Progress Note ---
Progress Note I was paged at approximately 23:46 by STAT rad Radiologist notified me that the patient's lower extremity venous Doppler was significant for an acute left DVT. PLAN: - Patient started on IV heparin drip without bolus
[2016-08-16] MEDS: LEVOTHYROXINE 25 MCG TAB PO SCH (06:11)
--- NOTE | 2016-08-16 07:44 | DIAGNOSTIC IMAGING REPORT ---
BILATERAL LOWER EXTREMITY VENOUS DOPPLER HISTORY: Leg swelling / pain R/O DVT COMPARISON STUDY: None. FINDINGS: No DVT within the right lower extremity. Thrombus identified within the left common femoral vein, superficial femoral vein, and popliteal vein. The left calf vessels were not well visualized due to the lower extremity edema. IMPRESSION: 1. No DVT within the right lower extremity. 2. Left lower extremity DVT seen from the common femoral vein through the popliteal vein. Electronically signed by: Santos Duron M.D. 08/16/2016 7:42 AM Dictated Date/Time: 08/16/2016 7:40 AM
[2016-08-16 08:19] VITALS: BP 167/83; PULSE 98; TEMP 36.6; O2SAT 96
[2016-08-16 08:21] LABS: PARTIAL THROMBOPLASTIN RATIO 2.4
[2016-08-16 08:30] LABS: COMPLETE YES; EOSINOPHIL % 3.4 %; HEMATOCRIT 34.1 % (42-52); LARGE GRANULAR LYMPH ABSOLUTE 1.61 K/uL; LARGE GRANULAR LYMPHOCYTE % 19.8 %; LYMPH ABS # 0.77 K/uL (1.2-3.4); LYMPHOCYTE % 9.5 %; MEAN CELL VOLUME 91.2 fL (80-100); MEAN PLATELET VOLUME 9.3 fL (7.4-10.4); NEUTROPHILS % 60.4 %; PLATELET COUNT 355 K/uL (130-400); RED BLOOD COUNT 3.74 M/uL (4.7-6.1); WHITE BLOOD COUNT 8.13 K/uL (4.8-10.8)
[2016-08-16] MEDS: RANITIDINE HCL 150 MG TAB PO SCH ×2 (08:37→20:09)
[2016-08-16] MEDS: CITALOPRAM 20 MG TAB PO SCH (08:37)
[2016-08-16] MEDS: METOPROLOL TARTRATE 25 MG TAB PO SCH (08:37)
[2016-08-16] MEDS: DOCUSATE SODIUM 100 MG CAP PO SCH ×2 (08:38→20:09)
[2016-08-16] MEDS: AVODART~ORDER AWAITING ACTION SCH ×4 (08:38→23:26)
[2016-08-16] MEDS: CYANOCOBALAMIN 500 MCG TAB (VIT B-12) PO SCH (08:38)
[2016-08-16] MEDS: LISINOPRIL 2.5 MG TAB PO SCH (08:38)
[2016-08-16] MEDS: TRIAMCINOLONE ACET 0.1% CR 15 GM TUBE EXT SCH (08:38)
[2016-08-16] MEDS: SENNA 8.6 MG TAB PO PRN (08:39)
[2016-08-16] MEDS: CARBIDOPA/LEVODOPA 25/100MG TAB PO SCH ×3 (08:39→17:13)
[2016-08-16] MEDS: FUROSEMIDE INJ 20 MG in SYRINGE 0 ML IV SCH ×2 (08:40→17:13)
[2016-08-16 08:51] LABS: BUN/CREATININE RATIO 14.2 (10-20); CALCIUM 8.7 mg/dl (8.5-10.1); CREATININE 1.2 mg/dl (0.60-1.40); MAGNESIUM 2.1 mg/dl (1.8-2.4); POTASSIUM 3.8 mmol/L (3.5-5.1)
[2016-08-16 08:53] LABS: ALB/GLOB RATIO 0.8 (0.9-2); PHOSPHORUS 3.1 mg/dl (2.5-4.9)
--- NOTE | 2016-08-16 09:02 | Neurology Consultation ---
Neurology Consultation Date of Consultation: Aug 16, 2016. Attending Physician: Anamaria Rojas MD Primary Care Physician: Loni Hodges MD Reason for Consultation: Patient is an 89-year-old, was asked to see the request of Dr. Pablo Lynn, regarding encephalopathy and Parkinson's disease History of Present Illness Source: patient, caregiver, clinic records, hospital records Patient tells me that he's had Parkinson's disease for about almost 10 years. I do not have any data to verify this but I did talk (via telephone) to the patient's daughter, who cares for him at her home . He saw Dr. Swapna Harley in March 2014 for abnormal gait. She verify the diagnosis of generalized polyneuropathy as well as Parkinson's disease. He was put on Sinemet and has remained on this since. An MRI of the brain in March 2014 showed small vessel ischemia and aging changes. In the summer, his primary care physician, Dr. Hodges, increased his regular acting Sinemet 25/100 to 2 tablets 3 times a day from 1-1/2 tablets 3 times a day. He is very stiff and has a hard time ambulating. He does not typically get dyskinesias or tremor but he is slow. The increased Sinemet helped some. The patient's daughter believes the patient does not have a significant underlying memory problem although he does get a little bit forgetful at times. Anytime he is in the hospital or gets a urinary tract infection his memory is worse. Patient has been having some trouble sleeping over the last few days and has had increased daytime sleepiness, generalized weakness, and increased confusion little bit of shortness of breath and increased bilateral lower extremity edema. He arrived at the emergency room August 14 with a blood pressure of 153/84, pulse 85, temperature 36.7, respiratory rate 18, and O2 saturation 96%. He had some confusion on exam and the rigidity from Parkinson's CAT scan of the head showed generalized atrophy and old small vessel ischemia without acute changes. Chest x-ray showed some right basilar pleural effusion but this was unchanged from previous. CBC showed a mild anemia and chem profile was otherwise unremarkable. TSH was normal. Lower extremity Doppler showed acute left DVT. He was placed on heparin. Today, the patient has calmer and had a good day yesterday until the evening when he became a little more confused and agitated. He is not in any pain or headache. He has no vision problems such as double vision and has no shortness of breath, chest pain, abdominal pain, or swallowing problems. Past Medical/Surgical History Medical Problems: (1) Fecal impaction Status: Acute (2) K92.0 Status: Acute (3) Metabolic encephalopathy Status: Acute (4) Non-ST elevation [place] (NSTEMI) Status: Acute (5) Pneumonia Status: Acute (6) Stool guaiac positive Status: Acute (7) Upper GI bleed Status: Acute (8) Weakness Parkinson's disease Benign prostatic hypertrophy Chronic edema Dyslipidemia History of fecal impaction abdominal symptoms with recent hospitalization fall of 2015 and possible GI bleed Hypertension Osteoarthritis History of paroxysmal atrial fibrillation History of cervical spinal stenosis noted by MRI in October 2006 mostly at C4/5 History of lumbar spinal stenosis at L3-4 Status post left carpal tunnel syndrome repair, left total knee replacement, tonsillectomy, laparoscopic hernia repair, and benign colonic neoplasm removal Family History Mother age 51 of uncertain cause but possibly pneumonia Father in a call mining accident when the patient was 4 Social History Patient used to smoke cigarettes but quit 40-50 years ago. He occasionally chews snuff when he can get it. 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 He is from [facility] and calls himself a [employer] Smoking Status: Former smoker Smokeless Tobacco Use: Yes Alcohol Use: none Drug Use: none Marital Status: Housing Status: lives with family Occupation Status: retired Allergies Coded Allergies: Piperacillin (Verified Allergy, Intermediate, rash, 08/14/16) Tazobactam (Verified Allergy, Intermediate, rash, 08/14/16) Vancomycin (Verified Allergy, Intermediate, Rash, 08/14/16) Lorazepam (Verified Allergy, Mild, DELIRIUM, 08/14/16) Current Inpatient Medications Current Inpatient Medications Medications (Trade) Dose Ordered Sig/Concetta Route Start Time Stop Time Status Last Admin Dose Admin Docusate Sodium (coLACE CAP) 100 mg BID PO 08/15/16 08:00 09/14/16 08:59 08/16/16 08:38 100 MG Carbidopa/Levodopa (Sinemet 25/ 100MG Tab) 2 tab TID@0900,1300,1700 PO 08/15/16 09:00 09/14/16 08:59 08/16/16 08:39 2 TAB Carbidopa/Levodopa (Sinemet Cr 25/ 100MG Tab) 1 tab HS PO 08/15/16 21:00 09/14/16 20:59 08/15/16 20:04 1 TAB Levothyroxine Sodium (Synthroid Tab) 25 mcg DAILYBB PO 08/15/16 06:30 09/14/16 06:29 08/16/16 06:11 25 MCG Lisinopril (Zestril Tab) 2.5 mg QAM PO 08/15/16 08:00 09/14/16 08:59 08/16/16 08:38 2.5 MG Metoprolol Tartrate (Lopressor Tab) 25 mg QAM PO 08/15/16 08:00 09/14/16 08:59 08/16/16 08:37 25 MG Ranitidine HCl (zANTac TAB) 150 mg DAILY PO 08/15/16 08:00 09/14/16 08:59 08/16/16 08:37 150 MG Ranitidine HCl (zANTac TAB) 75 mg QPM PO 08/15/16 21:00 09/14/16 20:59 08/15/16 20:04 75 MG Senna (Senokot Tab) 17.2 mg QAM PRN PO 08/15/16 01:45 09/14/16 01:44 08/16/16 08:39 17.2 MG Tamsulosin HCl (Flomax Cap) 0.4 mg QPM PO 08/15/16 21:00 09/14/16 20:59 08/15/16 20:04 0.4 MG Triamcinolone Acetonide (Kenalog 0.1% Cream) 1 appln DAILY EXT 08/15/16 08:00 09/14/16 08:59 08/16/16 08:38 1 APPLN Cyanocobalamin (Vitamin B-12 Tab) 1,000 mcg QAM PO 08/15/16 08:00 09/14/16 08:59 08/16/16 08:38 1,000 MCG Miscellaneous Information (Order Awaiting Action) 1 ea QS N/A 08/15/16 08:00 09/14/16 07:59 Fluticasone Propionate (Flonase Nasal [place]) 2 sprays HS DIETER 08/15/16 21:00 09/14/16 20:59 08/15/16 08:35 2 SPRAYS Acetaminophen (Tylenol Tab) 650 mg Q4H PRN PO 08/15/16 01:45 09/14/16 01:44 Al Hydrox/Mg Hydrox/Simethicone (Maalox Max Susp) 15 ml Q4H PRN PO 08/15/16 01:45 09/14/16 01:44 Magnesium Hydroxide (Milk Of Magnesia Susp) 30 ml Q6H PRN PO 08/15/16 01:45 09/14/16 01:44 Polyethylene (Miralax Powder Packet) 17 gm DAILY PRN PO 08/15/16 01:45 09/14/16 01:44 Ondansetron HCl 4 mg 4 mg Q6H PRN IV 08/15/16 01:45 09/14/16 01:44 Levofloxacin/Prmx (Levaquin / D5W/ Premixed D5W) 150 ml @ 100 mls/hr Q24H IV 08/16/16 02:00 08/26/16 01:59 08/16/16 01:13 100 MLS/HR Olanzapine (Zyprexa Zydis Od Tab) 1.25 mg HS PRN PO 08/15/16 01:45 09/14/16 01:44 Citalopram Hydrobromide (celeXA TAB) 10 mg DAILY PO 08/15/16 08:00 09/14/16 07:59 08/16/16 08:37 10 MG Levofloxacin 1 ea 1 ea UD PRN N/A 08/15/16 05:00 09/14/16 04:59 Furosemide/Syringe (Lasix Inj/ Syringe) 2 ml @ 4 mls/min BID17 IV 08/15/16 20:00 09/14/16 19:59 08/16/16 08:40 4 MLS/MIN Potassium Chloride 10 meq 10 meq Q2D@0900 PO 08/17/16 09:00 09/16/16 08:59 Heparin Sodium/ Dextrose (Heparin 25,000 Unit/500ml D5W) 500 ml @ 30 mls/hr [id number] PRN IV 08/16/16 01:30 09/15/16 01:29 2/16/17 01:43 30 MLS/HR Review of Systems Constitutional: + fatigue, + weakness Eyes: No diplopia, No worsening of vision ENT: + hearing loss, No tinnitus, No trouble swallowing Respiratory: No cough, No shortness of breath Cardiovascular: No chest pain, No palpitations Abdomen: No nausea, No pain Musculoskeletal: No joint pain, No muscle pain Genitourinary - Male: No dysuria, No urinary incontinence Neurologic: + balance problems, + memory loss, + weakness, No numbness/tingling , No vertigo Psychiatric: No anxiety, No depression symptoms Endocrine: + fatigue Hematologic / Lymphatic: No abnormal bleeding/bruising Integumentary: No rash Allergic / Immunologic: No hives Physical Exam Vital Signs (Past 24 Hrs): Date Time Temp Pulse Resp B/P Pulse Ox O2 Delivery O2 Flow Rate FiO2 08/16/16 08:19 36.6 98 18 167/83 96 Room Air 08/16/16 00:01 Room Air 08/15/16 23:56 36.6 97 18 141/79 95 Room Air 08/15/16 21:46 Room Air 08/15/16 16:01 95 Room Air 08/15/16 15:06 36.8 77 20 120/64 95 Room Air The patient is right-handed. He is very hard of hearing which helps create an illusion of confusion. He is pleasant and cooperative. The patient is awake and alert. Speech is normal without aphasia or dysarthria. He knows his name, the month, the day, can do simple calculations, name objects, and no slough from right. He did not know his age or the year. The discs are sharp with positive venous pulsations. There are no exudates, hemorrhages, or blood vessel changes seen. Pupils are 3mm bilaterally and reactive to light. Extraocular eye muscles are intact without nystagmus. Visual acuity and visual burnette seem normal grossly to confrontation. There are no deficits to sensation of the face bilaterally. Corneal reflexes are positive bilaterally. Facial strength and symmetry is normal bilaterally. Hearing seems intact grossly to voice and finger rub. Palate moves well without asymmetry. There is normal sternocleidomastoid and trapezius strength bilaterally. Tongue is midline with good strength bilaterally. He has some minimal masklike face. Neck is somewhat stiff but has a full range of motion without discomfort. There are no cervical bruits. There are no cranial or ocular bruits. Heart is without murmur. Cervical, thoracic, and lumbar spine are nontender to palpation. Gait was attempted but he could not stand even with the assistance of 2 due to stiffness and poor balance morning to fall backwards. Stance sitting he tends to fall backwards also. With outstretched arms there is no drift. There are no resting tremors noted. The patient has very mild postural and action tremor bilaterally There is no ataxia with [id number] testing. There is reasonable facility in the hands. There are no abnormal involuntary movements noted. 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 Motor strength is 5/5 diffusely in the legs bilaterally including hip flexors, quadriceps, hamstring, gastrocnemius, tibialis anterior, tibialis posterior, and peroneii muscles bilaterally. Toe extensors are normal and there is good bulk in the extensor digitorum brevis muscle bilaterally. The limbs have mild right greater than the left arm rigidity and moderate to significant bilateral leg rigidity Sensory examination is intact to pin and touch throughout all four limbs. Reflexes are 1/4 in the biceps, triceps, brachioradialis, quadriceps, and Achilles tendons bilaterally. Toes are downgoing with plantar stimulation bilaterally. Peripheral pulses are present and of normal quality distally in all four limbs. There is no peripheral edema noted. Laboratory Results Past 24 Hours: 08/16/16 07:30 Red Blood Count 3.74, Mean Corpuscular Volume 91.2, Mean Corpuscular Hemoglobin 31.0, Mean Corpuscular Hemoglobin Concent 34.0, Mean Platelet Volume 9.3 08/16/16 07:30 Test 08/15/16 16:17 08/16/16 01:43 08/16/16 07:30 Procalcitonin < 0.05 ng/mL (0-0.5) Immature Granulocyte % (Auto) 0.1 % White Blood Count 7.70 K/uL (4.8-10.8) 8.13 K/uL (4.8-10.8) Red Blood Count 3.63 M/uL (4.7-6.1) 3.74 M/uL (4.7-6.1) Hemoglobin 11.0 g/dL (14.0-18.0) 11.6 g/dL (14.0-18.0) Hematocrit 32.6 % (42-52) 34.1 % (42-52) Mean Corpuscular Volume 89.8 fL (80-100) 91.2 fL (80-100) Mean Corpuscular Hemoglobin 30.3 pg (25-34) 31.0 pg (25-34) Mean Corpuscular Hemoglobin Concent 33.7 g/dl (32-36) 34.0 g/dl (32-36) Platelet Count 308 K/uL (130-400) 355 K/uL (130-400) Mean Platelet Volume 8.7 fL (7.4-10.4) 9.3 fL (7.4-10.4) Neutrophils (%) (Auto) 62.6 % Lymphocytes (%) (Auto) 20.4 % Monocytes (%) (Auto) 11.4 % Eosinophils (%) (Auto) 4.7 % Basophils (%) (Auto) 0.8 % Neutrophils # (Auto) 4.82 K/uL (1.4-6.5) Lymphocytes # (Auto) 1.57 K/uL (1.2-3.4) Monocytes # (Auto) 0.88 K/uL (0.11-0.59) Eosinophils # (Auto) 0.36 K/uL (0-0.5) Basophils # (Auto) 0.06 K/uL (0-0.2) Immature Granulocyte # (Auto) 0.01 K/uL (0.00-0.02) RDW Standard Deviation 51.9 fL (36.4-46.3) RDW Coefficient of Variation 15.5 % (11.5-14.5) Neutrophils % (Manual) 60.4 % Lymphocytes % (Manual) 9.5 % Monocytes % (Manual) 6.9 % Eosinophils % (Manual) 3.4 % Neutrophils # (Manual) 4.91 K/uL (1.4-6.5) Total Absolute Neutrophils 4.91 K/uL (1.4-6.5) Lymphocytes # (Manual) 0.77 K/uL (1.2-3.4) Total Absolute Lymphocytes 2.38 K/uL (1.2-3.4) Monocytes # (Manual) 0.56 K/uL (0.11-0.59) Eosinophils # (Manual) 0.28 K/uL (0-0.5) Percent Large Granular Lymphocytes 19.8 % Absolute Large Granular Lymphocytes 1.61 K/uL Red Blood Cell Morphology Unremarkable Activated Partial Thromboplast Time 62.8 SECONDS (21.0-31.0) Partial Thromboplastin Ratio 2.4 Anion Gap 15.0 mmol/L (3-11) Est Creatinine Clear Calc Drug Dose 48.9 ml/min Estimated GFR () 61.8 Estimated GFR (Non- 53.3 BUN/Creatinine Ratio 14.2 (10-20) Calcium Level 8.7 mg/dl (8.5-10.1) Phosphorus Level 3.1 mg/dl (2.5-4.9) Magnesium Level 2.1 mg/dl (1.8-2.4) Total Bilirubin 0.4 mg/dl (0.2-1) Aspartate Amino Transf (AST/SGOT) 13 U/L (15-37) Alanine Aminotransferase (ALT/SGPT) 10 U/L (12-78) Alkaline Phosphatase 118 U/L (45-117) Total Protein 7.1 gm/dl (6.4-8.2) Albumin 3.1 gm/dl (3.4-5.0) Globulin 4.0 gm/dl (2.5-4.0) Albumin/Globulin Ratio 0.8 (0.9-2) Impression 1. Advanced Parkinson's disease of an akineto-rigid variety. He does not have much in the way of resting tremor. His gait is poor and he is very stiff and slow. He is currently on regular and long-acting Sinemet. 2. Acute encephalopathy secondary to UTI. 3. Underlying dementia of a mixed nature, likely aging, vascular, and Parkinson 's disease 4. History of generalized polyneuropathy. 5. Old small vessel ischemic changes on MRI 6. Acute left leg DVT now on heparin. Plan 1. Caution with heparin as he has had a GI bleed 2 or 3 months ago 2. I spoke with the patient's daughter and Dr. Lynn, and we have elected to keep Sinemet the same for now. As an outpatient, I may consider adding an adjunct such as Neupro patch or other. Increasing Sinemet might help him walk and be less stiff but might make his confusion worse. Decreasing Sinemet could make his confusion better but he will likely be stiffer 3. Physical therapy 4. Consider B-12 level 5. Treat UTI as she redoing I can follow-up as an outpatient regarding these issues.
[2016-08-16] MEDS: OLANZAPINE ZYDIS 5 MG ORALLY DIS. TAB PO PRN ×2 (13:17→20:49)
--- NOTE | 2016-08-16 15:11 | Progress Note ---
Subjective Date of Service: Aug 16, 2016. Subjective Pt evaluation today including: conversation w/ patient, conversation w/ family , physical exam, chart review, lab review, review of studies, review of inpatient medication list Problem List Medical Problems: (1) Fecal impaction Status: Acute (2) K92.0 Status: Acute (3) Metabolic encephalopathy Status: Acute (4) Non-ST elevation SD (NSTEMI) Status: Acute (5) Pneumonia Status: Acute (6) Stool guaiac positive Status: Acute (7) Upper GI bleed Status: Acute (8) Weakness Status: Acute Review of Systems Constitutional: No chills, No fatigue, No fever, No problem reported, No see HPI, No sweats, No weakness, No weight loss Eyes: No diplopia, No discharge, No eye pain, No problem reported, No redness, No see HPI, No worsening of vision ENT: No dental problems, No hearing loss, No nasal symptoms, No problem reported, No see HPI, No sore throat, No tinnitus, No trouble swallowing, No unusual epistaxis Respiratory: No cough, No dyspnea at rest, No dyspnea on exertion, No hemoptysis, No problem reported, No see HPI, No shortness of breath, No sputum, No wheezing Cardiac: No PND, No chest pain, No claudication, No edema, No orthopnea, No palpitations, No problem reported, No see HPI Abdomen: No GI bleeding, No constipation, No diarrhea, No nausea, No pain, No problem reported, No see HPI, No vomiting Musculoskeletal: No calf pain, No muscle pain, No problem reported, No see HPI , No swelling Male : No dysuria, No hematuria, No incontinence, No nocturia more than once/ night, No problem reported, No see HPI, No sexual dysfunction, No slowing stream , No urinary frequency Neurologic: No balance problems, No memory loss, No numbness/tingling, No paralysis, No problem reported, No see HPI, No vertigo, No weakness Psychiatric: No anhedonism, No anxiety, No depression symptoms, No insomnia, No problem reported, No see HPI, No substance abuse Heme: No abnormal bleeding/bruising, No clotting problems, No night sweats, No problem reported, No see HPI, No swollen lymph nodes Endo: No excessive thirst, No excessive urination, No fatigue, No problem reported, No see HPI Skin: No bleeding, No color change, No itch, No new/changing skin lesions, No problem reported, No rash, No see HPI Medications Current Inpatient Medications Medications (Trade) Dose Ordered Sig/Concetta Route Start Time Stop Time Status Last Admin Dose Admin Docusate Sodium (coLACE CAP) 100 mg BID PO 08/15/16 08:00 09/14/16 08:59 08/16/16 08:38 100 MG Carbidopa/Levodopa (Sinemet 25/ 100MG Tab) 2 tab TID@0900,1300,1700 PO 08/15/16 09:00 09/14/16 08:59 08/16/16 12:47 2 TAB Carbidopa/Levodopa (Sinemet Cr 25/ 100MG Tab) 1 tab HS PO 08/15/16 21:00 09/14/16 20:59 08/15/16 20:04 1 TAB Levothyroxine Sodium (Synthroid Tab) 25 mcg DAILYBB PO 08/15/16 06:30 09/14/16 06:29 08/16/16 06:11 25 MCG Lisinopril (Zestril Tab) 2.5 mg QAM PO 08/15/16 08:00 09/14/16 08:59 08/16/16 08:38 2.5 MG Metoprolol Tartrate (Lopressor Tab) 25 mg QAM PO 08/15/16 08:00 09/14/16 08:59 08/16/16 08:37 25 MG Ranitidine HCl (zANTac TAB) 150 mg DAILY PO 08/15/16 08:00 09/14/16 08:59 08/16/16 08:37 150 MG Ranitidine HCl (zANTac TAB) 75 mg QPM PO 08/15/16 21:00 09/14/16 20:59 08/15/16 20:04 75 MG Senna (Senokot Tab) 17.2 mg QAM PRN PO 08/15/16 01:45 09/14/16 01:44 08/16/16 08:39 17.2 MG Tamsulosin HCl (Flomax Cap) 0.4 mg QPM PO 08/15/16 21:00 09/14/16 20:59 08/15/16 20:04 0.4 MG Triamcinolone Acetonide (Kenalog 0.1% Cream) 1 appln DAILY EXT 08/15/16 08:00 09/14/16 08:59 08/16/16 08:38 1 APPLN Cyanocobalamin (Vitamin B-12 Tab) 1,000 mcg QAM PO 08/15/16 08:00 09/14/16 08:59 08/16/16 08:38 1,000 MCG Miscellaneous Information (Order Awaiting Action) 1 ea QS N/A 08/15/16 08:00 09/14/16 07:59 Fluticasone Propionate (Flonase Nasal Iron) 2 sprays HS DIETER 08/15/16 21:00 09/14/16 20:59 08/15/16 08:35 2 SPRAYS Acetaminophen (Tylenol Tab) 650 mg Q4H PRN PO 08/15/16 01:45 09/14/16 01:44 Al Hydrox/Mg Hydrox/Simethicone (Maalox Max Susp) 15 ml Q4H PRN PO 08/15/16 01:45 09/14/16 01:44 Magnesium Hydroxide (Milk Of Magnesia Susp) 30 ml Q6H PRN PO 08/15/16 01:45 09/14/16 01:44 Polyethylene (Miralax Powder Packet) 17 gm DAILY PRN PO 08/15/16 01:45 09/14/16 01:44 Ondansetron HCl 4 mg 4 mg Q6H PRN IV 08/15/16 01:45 09/14/16 01:44 Levofloxacin/Prmx (Levaquin / D5W/ Premixed D5W) 150 ml @ 100 mls/hr Q24H IV 08/16/16 02:00 08/26/16 01:59 08/16/16 01:13 100 MLS/HR Olanzapine (Zyprexa Zydis Od Tab) 1.25 mg HS PRN PO 08/15/16 01:45 09/14/16 01:44 Citalopram Hydrobromide (celeXA TAB) 10 mg DAILY PO 08/15/16 08:00 09/14/16 07:59 08/16/16 08:37 10 MG Levofloxacin 1 ea 1 ea UD PRN N/A 08/15/16 05:00 09/14/16 04:59 Furosemide/Syringe (Lasix Inj/ Syringe) 2 ml @ 4 mls/min BID17 IV 08/15/16 20:00 09/14/16 19:59 08/16/16 08:40 4 MLS/MIN Potassium Chloride 10 meq 10 meq Q2D@0900 PO 08/17/16 09:00 09/16/16 08:59 Heparin Sodium/ Dextrose (Heparin 25,000 Unit/500ml D5W) 500 ml @ 30 mls/hr [id number] PRN IV 08/16/16 01:30 09/15/16 01:29 08/16/16 01:43 30 MLS/HR Objective Vital Signs Date Time Temp Pulse Resp B/P Pulse Ox O2 Delivery O2 Flow Rate FiO2 08/16/16 08:19 36.6 98 18 167/83 96 Room Air 08/16/16 08:00 Room Air 08/16/16 00:01 Room Air 08/15/16 23:56 36.6 97 18 141/79 95 Room Air 08/15/16 21:46 Room Air 08/15/16 16:01 95 Room Air Physical Exam General Appearance: WD/WN, no apparent distress Eyes: normal inspection, EOMI ENT: normal ENT inspection, hearing grossly normal, TMs normal, pharynx normal Neck: supple Respiratory/Chest: chest non-tender, lungs clear, normal breath sounds, no respiratory distress, no accessory muscle use Cardiovascular: regular rate, rhythm, no edema, no gallop, no JVD, no murmur Abdomen: normal bowel sounds, non tender, soft, no organomegaly, no pulsatile mass Extremities: + inflammation, + swelling 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, no motor/sensory deficits, alert, normal mood/affect, oriented x 3 Skin: normal color, warm/dry, no rash Laboratory Results Last 24 Hours Test 08/15/16 16:17 08/16/16 01:43 08/16/16 07:30 Procalcitonin < 0.05 ng/mL White Blood Count 7.70 K/uL 8.13 K/uL Red Blood Count 3.63 M/uL 3.74 M/uL Hemoglobin 11.0 g/dL 11.6 g/dL Hematocrit 32.6 % 34.1 % Mean Corpuscular Volume 89.8 fL 91.2 fL Mean Corpuscular Hemoglobin 30.3 pg 31.0 pg Mean Corpuscular Hemoglobin Concent 33.7 g/dl 34.0 g/dl Platelet Count 308 K/uL 355 K/uL Mean Platelet Volume 8.7 fL 9.3 fL Neutrophils (%) (Auto) 62.6 % Lymphocytes (%) (Auto) 20.4 % Monocytes (%) (Auto) 11.4 % Eosinophils (%) (Auto) 4.7 % Basophils (%) (Auto) 0.8 % Neutrophils # (Auto) 4.82 K/uL Lymphocytes # (Auto) 1.57 K/uL Monocytes # (Auto) 0.88 K/uL Eosinophils # (Auto) 0.36 K/uL Basophils # (Auto) 0.06 K/uL RDW Standard Deviation 51.6 fL 51.9 fL RDW Coefficient of Variation 15.5 % 15.5 % Immature Granulocyte % (Auto) 0.1 % Immature Granulocyte # (Auto) 0.01 K/uL Neutrophils % (Manual) 60.4 % Lymphocytes % (Manual) 9.5 % Monocytes % (Manual) 6.9 % Eosinophils % (Manual) 3.4 % Neutrophils # (Manual) 4.91 K/uL Total Absolute Neutrophils 4.91 K/uL Lymphocytes # (Manual) 0.77 K/uL Total Absolute Lymphocytes 2.38 K/uL Monocytes # (Manual) 0.56 K/uL Eosinophils # (Manual) 0.28 K/uL Percent Large Granular Lymphocytes 19.8 % Absolute Large Granular Lymphocytes 1.61 K/uL Red Blood Cell Morphology Unremarkable Activated Partial Thromboplast Time 62.8 SECONDS Partial Thromboplastin Ratio 2.4 Sodium Level 141 mmol/L Potassium Level 3.8 mmol/L Chloride Level 106 mmol/L Carbon Dioxide Level 20 mmol/L Anion Gap 15.0 mmol/L Blood Urea Nitrogen 17 mg/dl Creatinine 1.20 mg/dl Est Creatinine Clear Calc Drug Dose 48.9 ml/min Estimated GFR () 61.8 Estimated GFR (Non- 53.3 BUN/Creatinine Ratio 14.2 Random Glucose 111 mg/dl Calcium Level 8.7 mg/dl Phosphorus Level 3.1 mg/dl Magnesium Level 2.1 mg/dl Total Bilirubin 0.4 mg/dl Aspartate Amino Transf (AST/SGOT) 13 U/L Alanine Aminotransferase (ALT/SGPT) 10 U/L Alkaline Phosphatase 118 U/L Total Protein 7.1 gm/dl Albumin 3.1 gm/dl Globulin 4.0 gm/dl Albumin/Globulin Ratio 0.8 Assessment and Plan 89 y/o M with Hx of Parkinson disease, HTN, BPH. Presents from home with weakness and confusion. He was found to UTI and B/L lower ext swelling/ tenderness 1) AMS (metabolic encephalopathy) / weakness - likely due to UTI continue Levaquin pending culture results (growing ecoli) negative procalcitonin might need urologist eval as an op improving. 2) worsening Parkinson disease cont Sinemet. D/W Dr. Fuentes,continue same dose , re evaluate as an out patient after acute issues resolved 3) HTN - cont home meds 4) Left lower extremity DVT seen from the common femoral vein through the popliteal vein. currently on heparin drip, D/W with patient and family 5) DVt prophylaxis with heparin
[2016-08-16 15:47] VITALS: BP 126/65; PULSE 86; TEMP 36.5; O2SAT 94
--- NOTE | 2016-08-16 19:00 | Medical Student: [facility] ---
Med Student History & Physical Date & Time of Service: Aug 16, 2016 at 08:52 Chief Complaint: Ams, Uti Primary Care Physician: Loni Hodges MD History of Present Illness Source: patient, hospital records Mr. Clayton is a 89 year-old male with history of Parkinson Disease, HTN, hypothyroidism, GERD, BPH, and depression came to the ER with family on 08/14/16 with confusion. Per ER chart, patient has not been sleeping well for the past few days. On the day of admission, he was having a deep sleep in the evening and got violent when family tried to wake him up to take medications. Regarding Parkinson disease, family stated that he is doing better than normal. Blood pressure was elevated upon admission at 158/89mmHg and UA is positive. Altered mental status change was suspected to be due to UTI, PD progression, or metabolic encephalopathy. Neurology is consulted for this. Mr. Clayton was diagnosed with Parkinson Disease sometime ago and was treated by Dr. Harley with carbidopa-levodopa. MRI done in March shows some vascular changes with age. Patient today states that he is feeling well. During conversation, he is alert and conversational but confused and tangential sometimes. He could not remember where he is and thought that he is at work and waiting for the truck to pick him up. He could not recall any events that bring him to the hospital. When being asked about his Parkinson Disease, he states that he had many falls in the past without any injuries and used walker and wheelchair for ambulation. He denies headache, chest pain, SOB, abdominal pain, leg pain, numbness/tingling, or change is hearing. His hearing is hard to hear, but does not change overtime. Family member was not present for further information. Past Medical/Surgical History Parkinson Disease HTN Hypothyroidism GERD BPH Depression Family History Mother - Pneumonia age 62 Father - [place] mine accident Social History Smoking Status: Former Smoker Smokeless Tobacco Use: Yes Alcohol Use: none Drug Use: none Marital Status: Housing status: lives with family Occupational Status: retired Immunizations History of Influenza Vaccine: Yes History of Tetanus Vaccine?: Unknown History of Pneumococcal: less than 10yrs ago. History of Hepatitis B Vaccine: No Allergies Coded Allergies: Piperacillin (Verified Allergy, Intermediate, rash, 08/14/16) Tazobactam (Verified Allergy, Intermediate, rash, 08/14/16) Vancomycin (Verified Allergy, Intermediate, Rash, 08/14/16) Lorazepam (Verified Allergy, Mild, DELIRIUM, 08/14/16) Medications Acetaminophen (Tylenol Arthritis Ext Rel), 650 MG PO TID Acetaminophen (Tylenol), 325 MG PO TID Citalopram Hydrobromide (Citalopram Hydrobromide), 10 MG PO DAILY Cyanocobalamin (Vitamin B12), 1,000 MCG PO QAM Docusate Sodium (Colace), 1 CAP PO BID Dutasteride (Avodart), 0.5 MG PO QAM Furosemide (Lasix), 20 MG PO QAM Levodopa/Carbidopa (Sinemet 25MG/100MG), 2 TAB PO TID@0900,1300,1700 Levodopa/Carbidopa (Sinemet Cr 25MG/100MG), 1 TAB PO HS Levothyroxine Sodium (Synthroid), 25 MCG PO DAILY Lisinopril (Zestril), 2.5 MG PO QAM Magnesium Hydroxide (Milk Of Magnesia), 30 ML PO DAILY PRN for NO BM 3 DAYS Melatonin (Melatonin), 5 MG PO HS Metoprolol Tartrate (Lopressor) (Lopressor), 25 MG PO QAM Mometasone Furoate (Nasal) (Mometasone Furoate), 2 SPRAY DIETER HS Polyethylene Glycol 3350 (Miralax), 17 GM PO DAILY Potassium Ext Rel (Klor-Con), 10 MEQ PO Q2D Ranitidine (Zantac), 150 MG PO DAILY Ranitidine HCl (Zantac), 75 MG PO QPM Senna (Senokot), 2 TAB PO QAM PRN for Constipation Simethicone (Gas-X), 80 MG PO QID PRN for GAS Tamsulosin Hcl (Flomax), 0.4 MG PO QPM Triamcinolone Acet (Aristocort 0.1%), 1 APPLN TOP DAILY Review of Systems Constitutional: + weakness, No fever Eyes: No worsening of vision ENT: + hearing loss Respiratory: No cough, No shortness of breath Cardiovascular: No chest pain Abdomen: No pain Musculoskeletal: + calf pain, + swelling Neurologic: No numbness/tingling, No paralysis Physical Exam Vital Signs (24 Hours) Date Time Temp Pulse Resp B/P Pulse Ox O2 Delivery O2 Flow Rate FiO2 08/16/16 08:19 36.6 98 18 167/83 96 Room Air 08/16/16 00:01 Room Air 08/15/16 23:56 36.6 97 18 141/79 95 Room Air 08/15/16 21:46 Room Air 08/15/16 16:01 95 Room Air 08/15/16 15:06 36.8 77 20 120/64 95 Room Air General Appearance: no apparent distress Head: atraumatic Eyes: PERRL, EOMI ENT: normal ENT inspection Neck: supple Respiratory/Chest: + decreased breath sounds (at base bilaterally) Cardiovascular: regular rate, rhythm, no murmur Extremities/Musculoskelatal: normal inspection, + swelling 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, alert Neurological exam Mental Status: Patient is alert and oriented to date, year, but not to place Cranial nerves CNI: not testest CNII: PERRL CNIII, IV, : normal horizontal gaze and upward gaze, mild downward gaze difficulty CN V: normal facial sensation to light touch bilaterally CN VII: normal strength to eye close CN IX, X: normal palate elevation, no uvea deviation CN XI: Patient was able to shrug shoulder against resistance CN XII: no tongue deviation or movement abnormalities Sensory: Normal sensation to light touch bilaterally in UE and LE Vibration: not tested Proprioception: Patient was able to recognize finger position Strength UE - 5/5 bilaterally biceps, triceps, finger flexors LE - 4+/5 bilaterally feet flexion, feet extension; 3/5 bilaterally hip flexors Tone: mild rigidity UE, severe rigidity LE [id number] test: no ataxia or dysmetria but action tremor present Walking - Patient is so stiff in his legs that he requires assistance for sitting up and could not proceed with standing up and walking. Diagnostics Laboratory Results Results Past 24 Hours Test 08/15/16 16:17 08/16/16 01:43 08/16/16 07:30 Range/Units Procalcitonin < 0.05 0-0.5 ng/mL White Blood Count 7.70 8.13 4.8-10.8 K/uL Red Blood Count 3.63 3.74 4.7-6.1 M/uL Hemoglobin 11.0 11.6 14.0-18.0 g/dL Hematocrit 32.6 34.1 42-52 % Mean Corpuscular Volume 89.8 91.2 80-100 fL Mean Corpuscular Hemoglobin 30.3 31.0 25-34 pg Mean Corpuscular Hemoglobin Concent 33.7 34.0 32-36 g/dl Platelet Count 308 355 130-400 K/uL Mean Platelet Volume 8.7 9.3 7.4-10.4 fL Neutrophils (%) (Auto) 62.6 % Lymphocytes (%) (Auto) 20.4 % Monocytes (%) (Auto) 11.4 % Eosinophils (%) (Auto) 4.7 % Basophils (%) (Auto) 0.8 % Neutrophils # (Auto) 4.82 1.4-6.5 K/uL Lymphocytes # (Auto) 1.57 1.2-3.4 K/uL Monocytes # (Auto) 0.88 0.11-0.59 K/uL Eosinophils # (Auto) 0.36 0-0.5 K/uL Basophils # (Auto) 0.06 0-0.2 K/uL RDW Standard Deviation 51.6 51.9 36.4-46.3 fL RDW Coefficient of Variation 15.5 15.5 11.5-14.5 % Immature Granulocyte % (Auto) 0.1 % Immature Granulocyte # (Auto) 0.01 0.00-0.02 K/uL Neutrophils % (Manual) 60.4 % Lymphocytes % (Manual) 9.5 % Monocytes % (Manual) 6.9 % Eosinophils % (Manual) 3.4 % Neutrophils # (Manual) 4.91 1.4-6.5 K/uL Total Absolute Neutrophils 4.91 1.4-6.5 K/uL Lymphocytes # (Manual) 0.77 1.2-3.4 K/uL Total Absolute Lymphocytes 2.38 1.2-3.4 K/uL Monocytes # (Manual) 0.56 0.11-0.59 K/uL Eosinophils # (Manual) 0.28 0-0.5 K/uL Percent Large Granular Lymphocytes 19.8 % Absolute Large Granular Lymphocytes 1.61 K/uL Red Blood Cell Morphology Unremarkable Activated Partial Thromboplast Time 62.8 21.0-31.0 SECONDS Partial Thromboplastin Ratio 2.4 Sodium Level 141 136-145 mmol/L Potassium Level 3.8 3.5-5.1 mmol/L Chloride Level 106 98-107 mmol/L Carbon Dioxide Level 20 21-32 mmol/L Anion Gap 15.0 3-11 mmol/L Blood Urea Nitrogen 17 7-18 mg/dl Creatinine 1.20 0.60-1.40 mg/dl Est Creatinine Clear Calc Drug Dose 48.9 ml/min Estimated GFR () 61.8 Estimated GFR (Non- 53.3 BUN/Creatinine Ratio 14.2 10-20 Random Glucose 111 70-99 mg/dl Calcium Level 8.7 8.5-10.1 mg/dl Magnesium Level 2.1 1.8-2.4 mg/dl Alanine Aminotransferase (ALT/SGPT) 10 12-78 U/L Albumin 3.1 3.4-5.0 gm/dl Diagnostic Radiology Chest X-ray: cardiomegaly, right pleural effusion (unchanged from prior X-ray in May 2016) Head CT: no mass, no hemorrhage detected Venous Doppler Study: left DVT MRI March - vascular changes Impression Assessment and Plan Mr. Clayton is a 89 year-old male with history of Parkinson Disease, HTN, hypothyroidism, GERD, BPH, and depression came to the ER with family on 08/14/16 with confusion. UA is positive and urine culture is positive for E. Coli. Patient's mental status was altered but seems better today. Acute altered mental status can be caused by infections, such as UTI, medications, endocrine disease or vitamin deficiency. Parkinson Disease progression usually presents with gradual dementia. This patient seems to have underlying dementia. Possible causes of dementia in this patient can be from Parkinson Disease or vascular changes (MRI) or mix. Plan: Parkinson Disease - No change in medication for now. Recommend to check B12 level. TSH level is normal on 08/14/2015 - Physical therapy is recommended - Follow up with neurology as outpatient UTI - Culture is positive for E.coli. Continue levofloxacin. 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
[2016-08-16] MEDS: FLUTICASONE PROPIONATE NA SPR 16 GM BTL NAE SCH (20:09)
[2016-08-16] MEDS: TAMSULOSIN HCL 0.4 MG CAP PO SCH (20:09)
[2016-08-16] MEDS: CARBIDOPA/LEVODOPA 25/100MG EXT REL TAB PO SCH (20:10)
[2016-08-17 00:18] VITALS: BP 111/68; PULSE 102; TEMP 36.9; O2SAT 95
[2016-08-17] MEDS: LEVOFLOXACIN / D5W 750 MG in PREMIXED IN D5W 150 ML IV SCH (02:02)
[2016-08-17] MEDS: LEVOTHYROXINE 25 MCG TAB PO SCH (06:09)
[2016-08-17 07:58] VITALS: BP 102/70; PULSE 98; TEMP 37.1; O2SAT 96
[2016-08-17 07:59] LABS: BASO % 0.9 %; BASO ABS # 0.07 K/uL (0-0.2); COMPLETE YES; EOS % 3.8 %; HEMATOCRIT 33.5 % (42-52); IG% 0.3 %; LYMPH ABS # 1.62 K/uL (1.2-3.4); MEAN CELL VOLUME 89.3 fL (80-100); MEAN CORPUSCULAR HEMOGLOBIN 29.6 pg (25-34); MEAN CORPUSCULAR HGB CONC 33.1 g/dl (32-36); MEAN PLATELET VOLUME 8.8 fL (7.4-10.4); MONO % 10.6 %; NEUT % 63.4 %; PLATELET COUNT 334 K/uL (130-400); RED BLOOD COUNT 3.75 M/uL (4.7-6.1); WHITE BLOOD COUNT 7.71 K/uL (4.8-10.8)
[2016-08-17 08:16] LABS: PARTIAL THROMBOPLASTIN RATIO 2.4
[2016-08-17 08:27] LABS: CALCIUM 8.7 mg/dl (8.5-10.1); CREATININE 1.3 mg/dl (0.60-1.40); POTASSIUM 3.7 mmol/L (3.5-5.1)
[2016-08-17 08:31] LABS: ALB/GLOB RATIO 0.7 (0.9-2); CHOLESTEROL/HDL RATIO 2.6
[2016-08-17] MEDS: CARBIDOPA/LEVODOPA 25/100MG TAB PO SCH ×3 (09:00→17:54)
[2016-08-17] MEDS: POTASSIUM CHLORIDE 10 MEQ TABCR PO SCH ×2 (09:00→12:29)
[2016-08-17] MEDS: NITROFURANTOIN MONOHYDRATE 100 MG CAP PO SCH ×3 (09:00→20:14)
[2016-08-17] MEDS: CEFTRIAXONE SOD INJ 1 GM in DEXTROSE 5% ADD-VANTAGE 50ML 50 ML IV SCH (09:04)
[2016-08-17] MEDS: TRIAMCINOLONE ACET 0.1% CR 15 GM TUBE EXT SCH (09:05)
[2016-08-17] MEDS: FUROSEMIDE INJ 20 MG in SYRINGE 0 ML IV SCH ×2 (09:11→17:54)
[2016-08-17] MEDS: CYANOCOBALAMIN 500 MCG TAB (VIT B-12) PO SCH ×2 (09:13→12:27)
[2016-08-17] MEDS: METOPROLOL TARTRATE 25 MG TAB PO SCH ×2 (09:13→12:28)
[2016-08-17] MEDS: LISINOPRIL 2.5 MG TAB PO SCH ×2 (09:13→12:27)
[2016-08-17] MEDS: DOCUSATE SODIUM 100 MG CAP PO SCH ×3 (09:13→20:14)
[2016-08-17] MEDS: RANITIDINE HCL 150 MG TAB PO SCH ×3 (09:13→20:14)
[2016-08-17] MEDS: CITALOPRAM 20 MG TAB PO SCH ×2 (09:14→12:28)
[2016-08-17] MEDS: AVODART~ORDER AWAITING ACTION SCH ×3 (09:14→22:52)
[2016-08-17] MEDS: HEPARIN 25,000 UNIT/500ML D5W 500 ML IV PRN (09:30)
[2016-08-17 09:37] LABS: ESTIMATED AVERAGE GLUCOSE 105 mg/dl; HA1C FLAG Normal (Normal)
[2016-08-17] MEDS: SENNA 8.6 MG TAB PO PRN (12:27)
[2016-08-17 15:38] VITALS: BP 115/75; PULSE 80; TEMP 36.6; O2SAT 97
[2016-08-17 16:00] VITALS: O2SAT 97
--- NOTE | 2016-08-17 19:58 | Progress Note ---
Subjective Date of Service: Aug 17, 2016. Subjective Pt evaluation today including: conversation w/ family, physical exam, chart review, lab review, review of studies, review of inpatient medication list Problem List Medical Problems: (1) Fecal impaction Status: Acute (2) K92.0 Status: Acute (3) Metabolic encephalopathy Status: Acute (4) Non-ST elevation LA (NSTEMI) Status: Acute (5) Pneumonia Status: Acute (6) Stool guaiac positive Status: Acute (7) Upper GI bleed Status: Acute (8) Weakness Status: Acute Review of Systems unobtainable due to confusion Objective Vital Signs Date Time Temp Pulse Resp B/P Pulse Ox O2 Delivery O2 Flow Rate FiO2 08/17/16 15:38 36.6 80 22 115/75 97 Room Air 08/17/16 08:00 Room Air 08/17/16 07:58 37.1 98 18 102/70 96 Room Air 08/17/16 00:18 36.9 102 18 111/68 95 Room Air 08/17/16 00:01 Room Air 08/16/16 20:00 Room Air Physical Exam General Appearance: + mild distress Eyes: normal inspection, EOMI ENT: normal ENT inspection, hearing grossly normal Respiratory/Chest: chest non-tender, lungs clear, normal breath sounds, no respiratory distress, no accessory muscle use Cardiovascular: regular rate, rhythm, no edema, no gallop, no JVD, no murmur Abdomen: normal bowel sounds, non tender, soft Extremities: normal range of motion, non-tender, normal inspection, no pedal edema 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: + pertinent finding (very lethargic , confused) Skin: normal color, warm/dry, no rash Laboratory Results Last 24 Hours Test 08/17/16 07:39 White Blood Count 7.71 K/uL Red Blood Count 3.75 M/uL Hemoglobin 11.1 g/dL Hematocrit 33.5 % Mean Corpuscular Volume 89.3 fL Mean Corpuscular Hemoglobin 29.6 pg Mean Corpuscular Hemoglobin Concent 33.1 g/dl Platelet Count 334 K/uL Mean Platelet Volume 8.8 fL Neutrophils (%) (Auto) 63.4 % Lymphocytes (%) (Auto) 21.0 % Monocytes (%) (Auto) 10.6 % Eosinophils (%) (Auto) 3.8 % Basophils (%) (Auto) 0.9 % Neutrophils # (Auto) 4.89 K/uL Lymphocytes # (Auto) 1.62 K/uL Monocytes # (Auto) 0.82 K/uL Eosinophils # (Auto) 0.29 K/uL Basophils # (Auto) 0.07 K/uL RDW Standard Deviation 50.5 fL RDW Coefficient of Variation 15.3 % Immature Granulocyte % (Auto) 0.3 % Immature Granulocyte # (Auto) 0.02 K/uL Activated Partial Thromboplast Time 63.3 SECONDS Partial Thromboplastin Ratio 2.4 Sodium Level 142 mmol/L Potassium Level 3.7 mmol/L Chloride Level 104 mmol/L Carbon Dioxide Level 26 mmol/L Anion Gap 12.0 mmol/L Blood Urea Nitrogen 17 mg/dl Creatinine 1.30 mg/dl Est Creatinine Clear Calc Drug Dose 45.2 ml/min Estimated GFR () 56.1 Estimated GFR (Non- 48.4 BUN/Creatinine Ratio 13.0 Random Glucose 113 mg/dl Estimated Average Glucose 105 mg/dl Hemoglobin A1c 5.3 % Calcium Level 8.7 mg/dl Magnesium Level 2.0 mg/dl Total Bilirubin 0.5 mg/dl Aspartate Amino Transf (AST/SGOT) 12 U/L Alanine Aminotransferase (ALT/SGPT) 7 U/L Alkaline Phosphatase 96 U/L Total Protein 7.2 gm/dl Albumin 2.9 gm/dl Globulin 4.3 gm/dl Albumin/Globulin Ratio 0.7 Triglycerides Level 93 mg/dl Cholesterol Level 154 mg/dl HDL Cholesterol 60 mg/dl LDL Cholesterol, Calculated 75 mg/dl VLDL Cholesterol, Calculated 19 mg/dl Cholesterol/HDL Ratio 2.6 Assessment and Plan 89 y/o M with Hx of Parkinson disease, HTN, BPH. Presents from home with weakness and confusion. He was found to UTI and B/L lower ext swelling/ tenderness - AMS (metabolic encephalopathy) / weakness - likely due to UTI , today more confused because he is on heparin and the mental status changed from yesterday, i ordered a stat CT head -UTI present on admission discontinue Levaquin culture results (growing ecoli resistant to levofloxacin) start imipenem negative procalcitonin might need urologist eval as an op 2) worsening Parkinson disease cont Sinemet. D/W Dr. Fuentes,continue same dose , re evaluate as an out patient after acute issues resolved 3) HTN - cont home meds 4) Left lower extremity DVT seen from the common femoral vein through the popliteal vein. currently on heparin drip, D/W with patient and family
[2016-08-17] MEDS: TAMSULOSIN HCL 0.4 MG CAP PO SCH (20:14)
[2016-08-17] MEDS: FLUTICASONE PROPIONATE NA SPR 16 GM BTL NAE SCH (20:14)
[2016-08-17] MEDS: CARBIDOPA/LEVODOPA 25/100MG EXT REL TAB PO SCH (20:16)
--- NOTE | 2016-08-17 21:28 | DIAGNOSTIC IMAGING REPORT ---
HEAD CT NONCONTRAST CT DOSE: 614.27 mGy.cm HISTORY: Mental status change Altered Mental Status TECHNIQUE: Multiaxial CT images of the head were performed without the use of intravenous contrast. Comparison: 08/14/2016 Findings: The paranasal sinuses and mastoid air cells are clear. Mild age-related atrophy. No evidence for acute intracranial hemorrhage. No midline shift. Impression: Chronic and age-related change. No acute process. Electronically signed by: Bairon James M.D. 08/17/2016 9:27 PM Dictated Date/Time: 08/17/2016 9:26 PM
[2016-08-18 00:18] VITALS: BP 117/66; PULSE 87; TEMP 36.7; O2SAT 95
[2016-08-18] MEDS: HEPARIN 25,000 UNIT/500ML D5W 500 ML IV PRN ×2 (03:01→20:14)
[2016-08-18] MEDS: LEVOTHYROXINE 25 MCG TAB PO SCH (06:19)
[2016-08-18 07:13] LABS: BASO % 1.1 %; BASO ABS # 0.08 K/uL (0-0.2); COMPLETE YES; EOS % 4.3 %; HEMATOCRIT 34.8 % (42-52); IG% 0.1 %; LYMPH % 28.7 %; LYMPH ABS # 2.11 K/uL (1.2-3.4); MEAN CELL VOLUME 91.1 fL (80-100); MEAN CORPUSCULAR HEMOGLOBIN 30.6 pg (25-34); MEAN CORPUSCULAR HGB CONC 33.6 g/dl (32-36); MONO % 10.3 %; NEUT % 55.5 %; PLATELET COUNT 335 K/uL (130-400); RED BLOOD COUNT 3.82 M/uL (4.7-6.1); WHITE BLOOD COUNT 7.36 K/uL (4.8-10.8)
[2016-08-18 07:23] VITALS: BP 144/73; PULSE 98; TEMP 36.9; O2SAT 94
[2016-08-18 07:39] LABS: PARTIAL THROMBOPLASTIN RATIO 2.7
[2016-08-18 07:45] LABS: BLOOD UREA NITROGEN 18 mg/dl (7-18); BUN/CREATININE RATIO 12.8 (10-20); CALCIUM 8.9 mg/dl (8.5-10.1); CARBON DIOXIDE 26 mmol/L (21-32); CHLORIDE 103 mmol/L (98-107); GLUCOSE 104 mg/dl (70-99); MAGNESIUM 2.1 mg/dl (1.8-2.4); POTASSIUM 3.5 mmol/L (3.5-5.1); SODIUM 141 mmol/L (136-145)
[2016-08-18 07:49] LABS: ALB/GLOB RATIO 0.7 (0.9-2); ALKALINE PHOSPHATASE 97 U/L (45-117); ALT/SGPT < 6 U/L (12-78); AST/SGOT 13 U/L (15-37); PHOSPHORUS 3.3 mg/dl (2.5-4.9)
--- NOTE | 2016-08-18 07:52 | Neurology Progress Notes ---
Neurology Progress Note Date of Service Aug 18, 2016. Subjective Patient denies pain, vision problems, dizziness, headaches, chest pain, abdominal pain, weakness or numbness of the limbs. Nursing reports that he is intermittently confused, particularly overnight. He's had no seizure activity. Because of acute confusion and the fact that he was on an anticoagulant, a CT scan of the head was obtained yesterday and showed no acute changes including no acute hemorrhage. Objective Date Time Temp Pulse Resp B/P Pulse Ox O2 Delivery O2 Flow Rate FiO2 08/18/16 07:23 36.9 98 20 144/73 94 Room Air 08/18/16 00:18 36.7 87 20 117/66 95 Room Air 08/18/16 00:00 Room Air 08/17/16 16:00 97 Room Air 08/17/16 15:38 36.6 80 22 115/75 97 Room Air 08/17/16 08:00 Room Air 08/17/16 07:58 37.1 98 18 102/70 96 Room Air Last 24 Hours Test 08/18/16 06:58 White Blood Count 7.36 K/uL Red Blood Count 3.82 M/uL Hemoglobin 11.7 g/dL Hematocrit 34.8 % Mean Corpuscular Volume 91.1 fL Mean Corpuscular Hemoglobin 30.6 pg Mean Corpuscular Hemoglobin Concent 33.6 g/dl Platelet Count 335 K/uL Mean Platelet Volume 9.0 fL Neutrophils (%) (Auto) 55.5 % Lymphocytes (%) (Auto) 28.7 % Monocytes (%) (Auto) 10.3 % Eosinophils (%) (Auto) 4.3 % Basophils (%) (Auto) 1.1 % Neutrophils # (Auto) 4.08 K/uL Lymphocytes # (Auto) 2.11 K/uL Monocytes # (Auto) 0.76 K/uL Eosinophils # (Auto) 0.32 K/uL Basophils # (Auto) 0.08 K/uL RDW Standard Deviation 51.5 fL RDW Coefficient of Variation 15.5 % Immature Granulocyte % (Auto) 0.1 % Immature Granulocyte # (Auto) 0.01 K/uL Sodium Level 141 mmol/L Potassium Level 3.5 mmol/L Chloride Level 103 mmol/L Carbon Dioxide Level 26 mmol/L Anion Gap 12.0 mmol/L Blood Urea Nitrogen 18 mg/dl Creatinine 1.40 mg/dl Est Creatinine Clear Calc Drug Dose 42.0 ml/min Estimated GFR () 51.3 Estimated GFR (Non- 44.2 BUN/Creatinine Ratio 12.8 Random Glucose 104 mg/dl Calcium Level 8.9 mg/dl Magnesium Level 2.1 mg/dl Albumin 3.2 gm/dl Exam: He is awake and alert. His speech does not have any significant aphasia or dysarthria. He knows his name and where he is and the year. He does not know the day the month the date or his age. He is pleasant and cooperative enough and follows one-step commands fairly well. He is hard of hearing which adds to the communication issue. Extraocular eye muscles seem intact without nystagmus. There is no facial droop. Pupils are 3 mm bilaterally reactive to light. Strength is symmetrical in all 4 limbs. He has mild rigidity in the arms and mild to moderate rigidity in the legs. He has no resting tremor. He has mild bradykinesia. He has no dyskinesias. Current Inpatient Medications Medications (Trade) Dose Ordered Sig/[place] Route Start Time Stop Time Status Last Admin Dose Admin Docusate Sodium (coLACE CAP) 100 mg BID PO 08/15/16 08:00 09/14/16 08:59 08/17/16 20:14 100 MG Carbidopa/Levodopa (Sinemet 25/ 100MG Tab) 2 tab TID@0900,1300,1700 PO 08/15/16 09:00 09/14/16 08:59 08/17/16 17:54 2 TAB Carbidopa/Levodopa (Sinemet Cr 25/ 100MG Tab) 1 tab HS PO 08/15/16 21:00 09/14/16 20:59 08/17/16 20:16 1 TAB Levothyroxine Sodium (Synthroid Tab) 25 mcg DAILYBB PO 08/15/16 06:30 09/14/16 06:29 08/18/16 06:19 25 MCG Lisinopril (Zestril Tab) 2.5 mg QAM PO 08/15/16 08:00 09/14/16 08:59 08/17/16 12:27 2.5 MG Metoprolol Tartrate (Lopressor Tab) 25 mg QAM PO 08/15/16 08:00 09/14/16 08:59 08/17/16 12:28 25 MG Ranitidine HCl (zANTac TAB) 150 mg DAILY PO 08/15/16 08:00 09/14/16 08:59 08/17/16 12:28 150 MG Ranitidine HCl (zANTac TAB) 75 mg QPM PO 08/15/16 21:00 09/14/16 20:59 08/17/16 20:14 75 MG Senna (Senokot Tab) 17.2 mg QAM PRN PO 08/15/16 01:45 09/14/16 01:44 08/17/16 12:27 17.2 MG Tamsulosin HCl (Flomax Cap) 0.4 mg QPM PO 08/15/16 21:00 09/14/16 20:59 08/17/16 20:14 0.4 MG Triamcinolone Acetonide (Kenalog 0.1% Cream) 1 appln DAILY EXT 08/15/16 08:00 09/14/16 08:59 08/17/16 09:05 1 APPLN Cyanocobalamin (Vitamin B-12 Tab) 1,000 mcg QAM PO 08/15/16 08:00 09/14/16 08:59 08/17/16 12:27 1,000 MCG Miscellaneous Information (Order Awaiting Action) 1 ea QS N/A 08/15/16 08:00 09/14/16 07:59 Fluticasone Propionate (Flonase Nasal [place]) 2 sprays HS DIETER 08/15/16 21:00 09/14/16 20:59 08/17/16 20:14 2 SPRAYS Acetaminophen (Tylenol Tab) 650 mg Q4H PRN PO 08/15/16 01:45 09/14/16 01:44 Al Hydrox/Mg Hydrox/Simethicone (Maalox Max Susp) 15 ml Q4H PRN PO 08/15/16 01:45 09/14/16 01:44 Magnesium Hydroxide (Milk Of Magnesia Susp) 30 ml Q6H PRN PO 08/15/16 01:45 09/14/16 01:44 Polyethylene (Miralax Powder Packet) 17 gm DAILY PRN PO 08/15/16 01:45 09/14/16 01:44 08/17/16 12:30 17 GM Ondansetron HCl (Zofran Inj) 4 mg Q6H PRN IV 2/15/17 01:45 09/14/16 01:44 Olanzapine (Zyprexa Zydis Od Tab) 1.25 mg HS PRN PO 08/15/16 01:45 09/14/16 01:44 08/16/16 20:49 1.25 MG Citalopram Hydrobromide 10 mg 10 mg DAILY PO 08/15/16 08:00 09/14/16 07:59 08/17/16 12:28 10 MG Furosemide/Syringe (Lasix Inj/ Syringe) 2 ml @ 4 mls/min BID17 IV 08/15/16 20:00 09/14/16 19:59 08/17/16 17:54 4 MLS/MIN Potassium Chloride 10 meq 10 meq Q2D@0900 PO 08/17/16 09:00 09/16/16 08:59 08/17/16 12:29 10 MEQ Heparin Sodium/ Dextrose (Heparin 25,000 Unit/500ml D5W) 500 ml @ 30 mls/hr [id number] PRN IV 08/16/16 01:30 09/15/16 01:29 08/18/16 03:01 30 MLS/HR Nitrofurantoin Macrocrystals 100 mg 100 mg BID PO 08/17/16 09:00 08/27/16 08:59 08/17/16 20:14 100 MG Ceftriaxone Sodium/Dextrose (Rocephin Inj/ Dextrose Add-[place] 50ML) 50 ml @ 100 mls/hr DAILY@0800 IV 08/17/16 09:00 08/27/16 07:59 08/17/16 09:04 100 MLS/HR Impression 1. Advanced Parkinson's disease of an akineto-rigid variety. He does not have much in the way of resting tremor. His gait is poor and he is very stiff and slow. He is currently on regular and long-acting Sinemet and is stable. 2. Acute encephalopathy secondary to UTI. this is complicated by the underlying dementia 3. Underlying dementia of a mixed nature, likely aging, vascular, and Parkinson 's disease 4. History of generalized polyneuropathy. stable 5. Old small vessel ischemic changes on MRI 6. Acute left leg DVT now on heparin. Plan 1. Caution with heparin as he has had a GI bleed 2 or 3 months ago 2. We have elected to keep Sinemet the same for now. As an outpatient, I may consider adding an adjunct such as Neupro patch or other. Increasing Sinemet might help him walk and be less stiff but might make his confusion worse. Decreasing Sinemet could make his confusion better but he will likely be stiffer 3. Physical therapy Unless he has any additional significant changes neurologically, I do not have any further testing or treatment recommendations to make as an inpatient. I would be happy to follow-up as an outpatient regarding his neurologic issues.
[2016-08-18] MEDS: AVODART~ORDER AWAITING ACTION SCH ×3 (08:00→20:54)
[2016-08-18] MEDS: TRIAMCINOLONE ACET 0.1% CR 15 GM TUBE EXT SCH (08:10)
[2016-08-18] MEDS: CITALOPRAM 20 MG TAB PO SCH (08:12)
[2016-08-18] MEDS: METOPROLOL TARTRATE 25 MG TAB PO SCH (08:13)
[2016-08-18] MEDS: DOCUSATE SODIUM 100 MG CAP PO SCH ×2 (08:13→20:51)
[2016-08-18] MEDS: NITROFURANTOIN MONOHYDRATE 100 MG CAP PO SCH ×2 (08:13→20:51)
[2016-08-18] MEDS: RANITIDINE HCL 150 MG TAB PO SCH ×2 (08:14→20:51)
[2016-08-18] MEDS: CYANOCOBALAMIN 500 MCG TAB (VIT B-12) PO SCH (08:14)
[2016-08-18] MEDS: LISINOPRIL 2.5 MG TAB PO SCH (08:14)
[2016-08-18] MEDS: CARBIDOPA/LEVODOPA 25/100MG TAB PO SCH ×3 (08:15→18:30)
[2016-08-18] MEDS: SENNA 8.6 MG TAB PO PRN (08:16)
[2016-08-18] MEDS: FUROSEMIDE INJ 20 MG in SYRINGE 0 ML IV SCH ×2 (09:55→18:28)
[2016-08-18] MEDS: CEFTRIAXONE SOD INJ 1 GM in DEXTROSE 5% ADD-VANTAGE 50ML 50 ML IV SCH (10:04)
[2016-08-18 15:14] VITALS: BP 115/68; PULSE 93; TEMP 36.9; O2SAT 94
--- NOTE | 2016-08-18 17:54 | Progress Note ---
Subjective Date of Service: Aug 18, 2016. Subjective Pt evaluation today including: conversation w/ patient, physical exam, lab review, review of studies, review of inpatient medication list Problem List Medical Problems: (1) Fecal impaction Status: Acute (2) K92.0 Status: Acute (3) Metabolic encephalopathy Status: Acute (4) Non-ST elevation ID (NSTEMI) Status: Acute (5) Pneumonia Status: Acute (6) Stool guaiac positive Status: Acute (7) Upper GI bleed Status: Acute (8) Weakness Status: Acute Review of Systems Denies pain but rest of ROS could not be reviewed giving his confusion Objective Vital Signs Date Time Temp Pulse Resp B/P Pulse Ox O2 Delivery O2 Flow Rate FiO2 08/18/16 16:00 Room Air 08/18/16 15:14 36.9 93 20 115/68 94 Room Air 08/18/16 08:00 Room Air 08/18/16 07:23 36.9 98 20 144/73 94 Room Air 08/18/16 00:18 36.7 87 20 117/66 95 Room Air 08/18/16 00:00 Room Air Physical Exam General Appearance: no apparent distress Eyes: normal inspection, EOMI ENT: normal ENT inspection, hearing grossly normal Neck: supple Respiratory/Chest: chest non-tender, lungs clear, normal breath sounds, no respiratory distress, no accessory muscle use Cardiovascular: regular rate, rhythm, no edema, no gallop, no JVD Abdomen: normal bowel sounds, non tender, soft, no organomegaly Extremities: normal range of motion, non-tender, normal inspection, no pedal edema 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: 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, no motor/sensory deficits, alert, normal mood/affect, + pertinent finding (slightly confused) Skin: normal color, warm/dry, no rash Laboratory Results Last 24 Hours Test 08/18/16 06:58 White Blood Count 7.36 K/uL Red Blood Count 3.82 M/uL Hemoglobin 11.7 g/dL Hematocrit 34.8 % Mean Corpuscular Volume 91.1 fL Mean Corpuscular Hemoglobin 30.6 pg Mean Corpuscular Hemoglobin Concent 33.6 g/dl Platelet Count 335 K/uL Mean Platelet Volume 9.0 fL Neutrophils (%) (Auto) 55.5 % Lymphocytes (%) (Auto) 28.7 % Monocytes (%) (Auto) 10.3 % Eosinophils (%) (Auto) 4.3 % Basophils (%) (Auto) 1.1 % Neutrophils # (Auto) 4.08 K/uL Lymphocytes # (Auto) 2.11 K/uL Monocytes # (Auto) 0.76 K/uL Eosinophils # (Auto) 0.32 K/uL Basophils # (Auto) 0.08 K/uL RDW Standard Deviation 51.5 fL RDW Coefficient of Variation 15.5 % Immature Granulocyte % (Auto) 0.1 % Immature Granulocyte # (Auto) 0.01 K/uL Activated Partial Thromboplast Time 69.2 SECONDS Partial Thromboplastin Ratio 2.7 Sodium Level 141 mmol/L Potassium Level 3.5 mmol/L Chloride Level 103 mmol/L Carbon Dioxide Level 26 mmol/L Anion Gap 12.0 mmol/L Blood Urea Nitrogen 18 mg/dl Creatinine 1.40 mg/dl Est Creatinine Clear Calc Drug Dose 42.0 ml/min Estimated GFR () 51.3 Estimated GFR (Non- 44.2 BUN/Creatinine Ratio 12.8 Random Glucose 104 mg/dl Calcium Level 8.9 mg/dl Phosphorus Level 3.3 mg/dl Magnesium Level 2.1 mg/dl Total Bilirubin 0.5 mg/dl Aspartate Amino Transf (AST/SGOT) 13 U/L Alanine Aminotransferase (ALT/SGPT) < 6 U/L Alkaline Phosphatase 97 U/L Total Protein 7.5 gm/dl Albumin 3.2 gm/dl Globulin 4.3 gm/dl Albumin/Globulin Ratio 0.7 Assessment and Plan 89 y/o M with Hx of Parkinson disease, HTN, BPH. Presents from home with weakness and confusion. He was found to UTI and B/L lower ext swelling/ tenderness - AMS (metabolic encephalopathy) / weakness - likely due to UTI , today less confused CT head was negative for bleed -UTI present on admission discontinue Levaquin culture results (growing ecoli resistant to levofloxacin) continue imipenem negative procalcitonin might need urologist eval as an op 2) worsening Parkinson disease cont Sinemet. D/W Dr. Fuentes,continue same dose , re evaluate as an out patient after acute issues resolved 3) HTN - cont home meds 4) Left lower extremity DVT seen from the common femoral vein through the popliteal vein. currently on heparin drip, D/W with patient and family
[2016-08-18] MEDS: TAMSULOSIN HCL 0.4 MG CAP PO SCH (20:51)
[2016-08-18] MEDS: FLUTICASONE PROPIONATE NA SPR 16 GM BTL NAE SCH (20:52)
[2016-08-18] MEDS: CARBIDOPA/LEVODOPA 25/100MG EXT REL TAB PO SCH (20:53)
[2016-08-18 23:25] VITALS: BP 146/77; PULSE 97; TEMP 36.5; O2SAT 93
[2016-08-19] MEDS: LEVOTHYROXINE 25 MCG TAB PO SCH (06:36)
[2016-08-19 07:07] LABS: BASO % 1.1 %; BASO ABS # 0.07 K/uL (0-0.2); COMPLETE YES; EOS % 3.8 %; HEMATOCRIT 31.4 % (42-52); IG% 0.2 %; LYMPH % 26.3 %; LYMPH ABS # 1.72 K/uL (1.2-3.4); MEAN CELL VOLUME 89.7 fL (80-100); MEAN CORPUSCULAR HGB CONC 33.4 g/dl (32-36); MONO % 11.8 %; NEUT % 56.8 %; PLATELET COUNT 333 K/uL (130-400); WHITE BLOOD COUNT 6.55 K/uL (4.8-10.8)
[2016-08-19 07:20] LABS: PARTIAL THROMBOPLASTIN RATIO 2.5
[2016-08-19 07:37] LABS: ALT/SGPT < 6 U/L (12-78); AST/SGOT 11 U/L (15-37); BLOOD UREA NITROGEN 18 mg/dl (7-18); BUN/CREATININE RATIO 14.9 (10-20); CALCIUM 8.4 mg/dl (8.5-10.1); CARBON DIOXIDE 29 mmol/L (21-32); CHLORIDE 103 mmol/L (98-107); GLUCOSE 101 mg/dl (70-99); MAGNESIUM 2.1 mg/dl (1.8-2.4); POTASSIUM 3.2 mmol/L (3.5-5.1); SODIUM 143 mmol/L (136-145)
[2016-08-19 07:40] LABS: ALB/GLOB RATIO 0.7 (0.9-2); ALKALINE PHOSPHATASE 86 U/L (45-117); PHOSPHORUS 3.6 mg/dl (2.5-4.9)
[2016-08-19 07:41] VITALS: BP 140/74; PULSE 97; TEMP 36.6; O2SAT 97
[2016-08-19 08:00] VITALS: O2SAT 97
[2016-08-19] MEDS: TRIAMCINOLONE ACET 0.1% CR 15 GM TUBE EXT SCH (09:15)
[2016-08-19] MEDS: DOCUSATE SODIUM 100 MG CAP PO SCH ×2 (09:15→19:54)
[2016-08-19] MEDS: CEFTRIAXONE SOD INJ 1 GM in DEXTROSE 5% ADD-VANTAGE 50ML 50 ML IV SCH (09:15)
[2016-08-19] MEDS: AVODART~ORDER AWAITING ACTION SCH ×3 (09:15→23:48)
[2016-08-19] MEDS: CYANOCOBALAMIN 500 MCG TAB (VIT B-12) PO SCH (09:16)
[2016-08-19] MEDS: CITALOPRAM 20 MG TAB PO SCH (09:16)
[2016-08-19] MEDS: LISINOPRIL 2.5 MG TAB PO SCH (09:17)
[2016-08-19] MEDS: POTASSIUM CHLORIDE 10 MEQ TABCR PO SCH (09:18)
[2016-08-19] MEDS: METOPROLOL TARTRATE 25 MG TAB PO SCH (09:19)
[2016-08-19] MEDS: CARBIDOPA/LEVODOPA 25/100MG TAB PO SCH ×3 (09:19→17:24)
[2016-08-19] MEDS: NITROFURANTOIN MONOHYDRATE 100 MG CAP PO SCH ×2 (09:19→19:54)
[2016-08-19] MEDS: RANITIDINE HCL 150 MG TAB PO SCH ×2 (09:20→19:54)
[2016-08-19] MEDS: FUROSEMIDE INJ 20 MG in SYRINGE 0 ML IV SCH ×3 (09:22→18:05)
[2016-08-19] MEDS ORDERED: NURSING VERBAL MED ORDER ONE (10:15)
[2016-08-19] MEDS ORDERED: POTASSIUM CHLORIDE 10 MEQ TABCR PO ONE (10:30)
[2016-08-19] MEDS: HEPARIN 25,000 UNIT/500ML D5W 500 ML IV PRN (13:01)
[2016-08-19 14:44] VITALS: BP 110/67; PULSE 73; TEMP 36.6; O2SAT 95
--- NOTE | 2016-08-19 15:32 | Progress Note ---
Subjective Date of Service: Aug 19, 2016. Subjective Pt evaluation today including: conversation w/ patient, conversation w/ family , physical exam, chart review, lab review, review of inpatient medication list Problem List Medical Problems: (1) Fecal impaction Status: Acute (2) K92.0 Status: Acute (3) Metabolic encephalopathy Status: Acute (4) Non-ST elevation NE (NSTEMI) Status: Acute (5) Pneumonia Status: Acute (6) Stool guaiac positive Status: Acute (7) Upper GI bleed Status: Acute (8) Weakness Status: Acute Review of Systems ROS was not obtainable due to lethargy Objective Vital Signs Date Time Temp Pulse Resp B/P Pulse Ox O2 Delivery O2 Flow Rate FiO2 08/19/16 14:44 36.6 73 18 110/67 95 Room Air 08/19/16 08:00 97 Room Air 08/19/16 07:41 36.6 97 20 140/74 97 08/19/16 00:00 Room Air 08/18/16 23:25 36.5 97 20 146/77 93 Room Air 08/18/16 20:00 Room Air 08/18/16 16:00 Room Air Physical Exam General Appearance: WD/WN, no apparent distress Eyes: normal inspection, EOMI ENT: normal ENT inspection, hearing grossly normal, TMs normal, pharynx normal Neck: supple Respiratory/Chest: chest non-tender, lungs clear, normal breath sounds, no respiratory distress, no accessory muscle use Cardiovascular: regular rate, rhythm, no edema, no gallop, no JVD, no murmur Abdomen: normal bowel sounds, non tender, soft, no organomegaly Extremities: normal range of motion, non-tender, normal inspection, no pedal edema 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: 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, no motor/sensory deficits, + pertinent finding (lethargic and slightly confused) Laboratory Results Last 24 Hours Test 08/19/16 05:30 08/19/16 06:28 Stool Occult Blood NEGATIVE White Blood Count 6.55 K/uL Red Blood Count 3.50 M/uL Hemoglobin 10.5 g/dL Hematocrit 31.4 % Mean Corpuscular Volume 89.7 fL Mean Corpuscular Hemoglobin 30.0 pg Mean Corpuscular Hemoglobin Concent 33.4 g/dl Platelet Count 333 K/uL Mean Platelet Volume 9.0 fL Neutrophils (%) (Auto) 56.8 % Lymphocytes (%) (Auto) 26.3 % Monocytes (%) (Auto) 11.8 % Eosinophils (%) (Auto) 3.8 % Basophils (%) (Auto) 1.1 % Neutrophils # (Auto) 3.73 K/uL Lymphocytes # (Auto) 1.72 K/uL Monocytes # (Auto) 0.77 K/uL Eosinophils # (Auto) 0.25 K/uL Basophils # (Auto) 0.07 K/uL RDW Standard Deviation 50.5 fL RDW Coefficient of Variation 15.4 % Immature Granulocyte % (Auto) 0.2 % Immature Granulocyte # (Auto) 0.01 K/uL Activated Partial Thromboplast Time 63.8 SECONDS Partial Thromboplastin Ratio 2.5 Sodium Level 143 mmol/L Potassium Level 3.2 mmol/L Chloride Level 103 mmol/L Carbon Dioxide Level 29 mmol/L Anion Gap 11.0 mmol/L Blood Urea Nitrogen 18 mg/dl Creatinine 1.20 mg/dl Est Creatinine Clear Calc Drug Dose 48.9 ml/min Estimated GFR () 61.8 Estimated GFR (Non- 53.3 BUN/Creatinine Ratio 14.9 Random Glucose 101 mg/dl Calcium Level 8.4 mg/dl Phosphorus Level 3.6 mg/dl Magnesium Level 2.1 mg/dl Total Bilirubin 0.4 mg/dl Aspartate Amino Transf (AST/SGOT) 11 U/L Alanine Aminotransferase (ALT/SGPT) < 6 U/L Alkaline Phosphatase 86 U/L Total Protein 6.7 gm/dl Albumin 2.8 gm/dl Globulin 3.9 gm/dl Albumin/Globulin Ratio 0.7 Assessment and Plan 89 y/o M with Hx of Parkinson disease, HTN, BPH. Presents from home with weakness and confusion. He was found to UTI and B/L lower ext swelling/ tenderness - AMS (metabolic encephalopathy) / weakness - likely due to UTI , today lethargic and slightly confused, mental status state weans on and off CT head was negative for bleed -UTI present on admission discontinue Levaquin culture results (growing ecoli resistant to levofloxacin) continue imipenem , day # 3 /14 (can be switched to Nitrofurantoin on discharge ) negative procalcitonin urologist eval due to recurrent UTI 2) worsening Parkinson disease cont Sinemet. D/W Dr. Fuentes,continue same dose , re evaluate as an out patient after acute issues resolved 3) HTN - cont home meds 4) Left lower extremity DVT seen from the common femoral vein through the popliteal vein. currently on heparin drip, D/W with patient and family
[2016-08-19 18:00] VITALS: BP 110/64; PULSE 88
[2016-08-19] MEDS: TAMSULOSIN HCL 0.4 MG CAP PO SCH (19:54)
[2016-08-19] MEDS: FLUTICASONE PROPIONATE NA SPR 16 GM BTL NAE SCH (19:54)
[2016-08-19] MEDS: CARBIDOPA/LEVODOPA 25/100MG EXT REL TAB PO SCH (19:54)
[2016-08-20 00:17] VITALS: BP 114/65; PULSE 81; TEMP 36.5; O2SAT 97
[2016-08-20] MEDS: LEVOTHYROXINE 25 MCG TAB PO SCH (06:02)
[2016-08-20] MEDS: HEPARIN 25,000 UNIT/500ML D5W 500 ML IV PRN ×2 (06:21→23:28)
[2016-08-20 07:05] LABS: BASO % 1.3 %; BASO ABS # 0.08 K/uL (0-0.2); COMPLETE YES; HEMATOCRIT 33.1 % (42-52); IG% 0.3 %; LYMPH % 25.6 %; LYMPH ABS # 1.58 K/uL (1.2-3.4); MEAN CELL VOLUME 92.5 fL (80-100); MEAN CORPUSCULAR HEMOGLOBIN 30.4 pg (25-34); MEAN CORPUSCULAR HGB CONC 32.9 g/dl (32-36); MEAN PLATELET VOLUME 9.8 fL (7.4-10.4); MONO % 16.5 %; NEUT % 51.3 %; PLATELET COUNT 362 K/uL (130-400); RED BLOOD COUNT 3.58 M/uL (4.7-6.1); WHITE BLOOD COUNT 6.18 K/uL (4.8-10.8)
[2016-08-20 07:31] LABS: PARTIAL THROMBOPLASTIN RATIO 2.3
[2016-08-20 07:36] LABS: BUN/CREATININE RATIO 14.7 (10-20); CALCIUM 8.7 mg/dl (8.5-10.1); CREATININE 1.2 mg/dl (0.60-1.40); MAGNESIUM 2.3 mg/dl (1.8-2.4); POTASSIUM 3.6 mmol/L (3.5-5.1)
[2016-08-20 07:39] LABS: ALB/GLOB RATIO 0.7 (0.9-2)
[2016-08-20 07:48] VITALS: BP 167/91; PULSE 92; TEMP 36.6; O2SAT 96
[2016-08-20] MEDS: DOCUSATE SODIUM 100 MG CAP PO SCH ×2 (08:31→21:41)
[2016-08-20] MEDS: CYANOCOBALAMIN 500 MCG TAB (VIT B-12) PO SCH (08:31)
[2016-08-20] MEDS: NITROFURANTOIN MONOHYDRATE 100 MG CAP PO SCH ×2 (08:31→21:43)
[2016-08-20] MEDS: TRIAMCINOLONE ACET 0.1% CR 15 GM TUBE EXT SCH (08:31)
[2016-08-20] MEDS: METOPROLOL TARTRATE 25 MG TAB PO SCH (08:31)
[2016-08-20] MEDS: CITALOPRAM 20 MG TAB PO SCH (08:31)
[2016-08-20] MEDS: CEFTRIAXONE SOD INJ 1 GM in DEXTROSE 5% ADD-VANTAGE 50ML 50 ML IV SCH (08:31)
[2016-08-20] MEDS: FUROSEMIDE INJ 20 MG in SYRINGE 0 ML IV SCH ×2 (08:32→16:25)
[2016-08-20] MEDS: CARBIDOPA/LEVODOPA 25/100MG TAB PO SCH ×3 (08:32→16:26)
[2016-08-20] MEDS: RANITIDINE HCL 150 MG TAB PO SCH ×2 (08:32→21:43)
[2016-08-20] MEDS: LISINOPRIL 2.5 MG TAB PO SCH (08:32)
[2016-08-20] MEDS: AVODART~ORDER AWAITING ACTION SCH (08:47)
--- NOTE | 2016-08-20 09:27 | Urology Consultation ---
History General Date of Service: Aug 20, 2016. Primary Care Physician: Loni Hodges MD Pt seen a urologist before?: No History of Present Illness 89 year old male admitted with confusion and UTI. Reviewed previous records. Pt lives at home and family noted increased confusion. Was seen by family physician recently. His urine culture from 07/17 showed no growth. He was placed on Levaquin Culture this hospitalization shows EColi resistant to levaquin, cipro, and ampicillin. He is now on IV imipenem and oral macrobid. He has been afebrile throughout his hospital stay. Creatinine varies from 1.1 to 1.4, WBC have been normal. Pt remains confused. Aware he is in hospital but thinks he is having surgery. He is able to report that his baseline urinary symptoms were not bothersome. Denies weak stream, inability to start stream, frequency, urgency or nocturia. Nursing staff here document he voids and is incontinent of urine. No upper or lower tract imaging. He is unsure if he has seen urology in the past. He is currently on tamsulosin. Laboratory Last 24 Hours Test 08/20/16 06:19 White Blood Count 6.18 K/uL Red Blood Count 3.58 M/uL Hemoglobin 10.9 g/dL Hematocrit 33.1 % Mean Corpuscular Volume 92.5 fL Mean Corpuscular Hemoglobin 30.4 pg Mean Corpuscular Hemoglobin Concent 32.9 g/dl Platelet Count 362 K/uL Mean Platelet Volume 9.8 fL Neutrophils (%) (Auto) 51.3 % Lymphocytes (%) (Auto) 25.6 % Monocytes (%) (Auto) 16.5 % Eosinophils (%) (Auto) 5.0 % Basophils (%) (Auto) 1.3 % Neutrophils # (Auto) 3.17 K/uL Lymphocytes # (Auto) 1.58 K/uL Monocytes # (Auto) 1.02 K/uL Eosinophils # (Auto) 0.31 K/uL Basophils # (Auto) 0.08 K/uL RDW Standard Deviation 52.7 fL RDW Coefficient of Variation 15.5 % Immature Granulocyte % (Auto) 0.3 % Immature Granulocyte # (Auto) 0.02 K/uL Activated Partial Thromboplast Time 60.1 SECONDS Partial Thromboplastin Ratio 2.3 Sodium Level 141 mmol/L Potassium Level 3.6 mmol/L Chloride Level 102 mmol/L Carbon Dioxide Level 28 mmol/L Anion Gap 11.0 mmol/L Blood Urea Nitrogen 18 mg/dl Creatinine 1.20 mg/dl Est Creatinine Clear Calc Drug Dose 48.9 ml/min Estimated GFR () 61.8 Estimated GFR (Non- 53.3 BUN/Creatinine Ratio 14.7 Random Glucose 90 mg/dl Calcium Level 8.7 mg/dl Phosphorus Level 3.0 mg/dl Magnesium Level 2.3 mg/dl Total Bilirubin 0.3 mg/dl Aspartate Amino Transf (AST/SGOT) 11 U/L Alanine Aminotransferase (ALT/SGPT) 6 U/L Alkaline Phosphatase 97 U/L Total Protein 7.0 gm/dl Albumin 2.8 gm/dl Globulin 4.2 gm/dl Albumin/Globulin Ratio 0.7 Current Inpatient Medications Medications (Trade) Dose Ordered Sig/[place] Route Start Time Stop Time Status Last Admin Dose Admin Docusate Sodium (coLACE CAP) 100 mg BID PO 08/15/16 08:00 09/14/16 08:59 08/20/16 08:31 100 MG Carbidopa/Levodopa (Sinemet 25/ 100MG Tab) 2 tab TID@0900,1300,1700 PO 08/15/16 09:00 09/14/16 08:59 08/20/16 08:32 2 TAB Carbidopa/Levodopa (Sinemet Cr 25/ 100MG Tab) 1 tab HS PO 08/15/16 21:00 09/14/16 20:59 08/19/16 19:54 1 TAB Levothyroxine Sodium (Synthroid Tab) 25 mcg DAILYBB PO 08/15/16 06:30 09/14/16 06:29 08/20/16 06:02 25 MCG Lisinopril (Zestril Tab) 2.5 mg QAM PO 08/15/16 08:00 09/14/16 08:59 08/20/16 08:32 2.5 MG Metoprolol Tartrate (Lopressor Tab) 25 mg QAM PO 08/15/16 08:00 09/14/16 08:59 08/20/16 08:31 25 MG Ranitidine HCl (zANTac TAB) 150 mg DAILY PO 08/15/16 08:00 09/14/16 08:59 08/20/16 08:32 150 MG Ranitidine HCl (zANTac TAB) 75 mg QPM PO 08/15/16 21:00 09/14/16 20:59 08/19/16 19:54 75 MG Senna (Senokot Tab) 17.2 mg QAM PRN PO 08/15/16 01:45 09/14/16 01:44 08/18/16 08:16 17.2 MG Tamsulosin HCl (Flomax Cap) 0.4 mg QPM PO 08/15/16 21:00 09/14/16 20:59 08/19/16 19:54 0.4 MG Triamcinolone Acetonide (Kenalog 0.1% Cream) 1 appln DAILY EXT 08/15/16 08:00 09/14/16 08:59 08/20/16 08:31 1 APPLN Cyanocobalamin (Vitamin B-12 Tab) 1,000 mcg QAM PO 08/15/16 08:00 09/14/16 08:59 08/20/16 08:31 1,000 MCG Miscellaneous Information (Order Awaiting Action) 1 ea QS N/A 08/15/16 08:00 09/14/16 07:59 Fluticasone Propionate (Flonase Nasal [place]) 2 sprays HS DIETER 08/15/16 21:00 09/14/16 20:59 08/19/16 19:54 2 SPRAYS Acetaminophen (Tylenol Tab) 650 mg Q4H PRN PO 08/15/16 01:45 09/14/16 01:44 Al Hydrox/Mg Hydrox/Simethicone (Maalox Max Susp) 15 ml Q4H PRN PO 08/15/16 01:45 09/14/16 01:44 Magnesium Hydroxide (Milk Of Magnesia Susp) 30 ml Q6H PRN PO 08/15/16 01:45 09/14/16 01:44 Polyethylene (Miralax Powder Packet) 17 gm DAILY PRN PO 08/15/16 01:45 09/14/16 01:44 08/17/16 12:30 17 GM Ondansetron HCl (Zofran Inj) 4 mg Q6H PRN IV 08/15/16 01:45 09/14/16 01:44 Olanzapine (Zyprexa Zydis Od Tab) 1.25 mg HS PRN PO 08/15/16 01:45 09/14/16 01:44 08/16/16 20:49 1.25 MG Citalopram Hydrobromide 10 mg 10 mg DAILY PO 08/15/16 08:00 09/14/16 07:59 08/20/16 08:31 10 MG Furosemide/Syringe (Lasix Inj/ Syringe) 2 ml @ 4 mls/min BID17 IV 08/15/16 20:00 09/14/16 19:59 08/20/16 08:32 4 MLS/MIN Potassium Chloride 10 meq 10 meq Q2D@0900 PO 08/17/16 09:00 09/16/16 08:59 08/19/16 09:18 10 MEQ Heparin Sodium/ Dextrose (Heparin 25,000 Unit/500ml D5W) 500 ml @ 30 mls/hr [id number] PRN IV 08/16/16 01:30 09/15/16 01:29 08/20/16 06:21 30 MLS/HR Nitrofurantoin Macrocrystals 100 mg 100 mg BID PO 08/17/16 09:00 08/27/16 08:59 08/20/16 08:31 100 MG Ceftriaxone Sodium/Dextrose (Rocephin Inj/ Dextrose Add-[place] 50ML) 50 ml @ 100 mls/hr DAILY@0800 IV 08/17/16 09:00 08/27/16 07:59 08/20/16 08:31 100 MLS/HR Labs were reviewed and are within normal limits unless listed below. Labs are available in the chart and at [facility] Problem List Medical Problems: (1) Fecal impaction Status: Acute (2) K92.0 Status: Acute (3) Metabolic encephalopathy Status: Acute (4) Non-ST elevation [place] (NSTEMI) Status: Acute (5) Pneumonia Status: Acute (6) Stool guaiac positive Status: Acute (7) Upper GI bleed Status: Acute (8) Weakness Status: Acute Past History BPH, deep vein thrombosis, dementia, hypertension, other (Parkinson's) Family History COPD (chronic obstructive pulmonary disease) Social History Hx Tobacco Use In Past Year?: No Marital status: Housing status: lives with family Occupation status: retired Immunizations History of Influenza Vaccine: Yes History of Tetanus Vaccine?: Unknown History of Pneumococcal: less than 10yrs ago. History of Hepatitis B Vaccine: No History of MDRO Yes Type of MDRO: MRSA Allergies Coded Allergies: Piperacillin (Verified Allergy, Intermediate, rash, 08/14/16) Tazobactam (Verified Allergy, Intermediate, rash, 08/14/16) Vancomycin (Verified Allergy, Intermediate, Rash, 08/14/16) Lorazepam (Verified Allergy, Mild, DELIRIUM, 08/14/16) Medications Home Medications: Home Meds and Scripts Medications Dose Route/Sig Max Daily Dose Days Date Category Dose Instructions Colace (Docusate Sodium) 100 Mg Cap 1 Cap PO BID 30 08/14/16 Reported Vitamin B12 (Cyanocobalamin) 1,000 Mcg Tab 1,000 Mcg PO QAM 08/14/16 Reported Zantac (Ranitidine HCl) 150 Mg Tab 75 Mg PO QPM 08/14/16 Reported Zantac (Ranitidine HCl) 150 Mg Tab 150 Mg PO DAILY 08/14/16 Reported Senokot (Senna) 8.6 Mg Tab 2 Tab PO QAM PRN 08/14/16 Reported Mometasone Furoate (Mometasone Furoate (Nasal)) 50 Mcg/Act Spr 2 [place] DIETER HS 08/14/16 Reported Sinemet Cr 25MG/100MG (Carbidopa/Levodopa) 1 Ea Tabcr 1 Tab PO HS 08/14/16 Reported Avodart (Dutasteride) 0.5 Mg Cap 0.5 Mg PO QAM 08/14/16 Reported Melatonin 5 Mg Tab 5 Mg PO HS 08/14/16 Reported Miralax (Polyethylene Glycol 3350) 1 Pow Pow 17 Gm PO DAILY 30 06/06/16 Rx Aristocort 0.1% (Triamcinolone Acet) 90 Appln/30 Gm Cr 1 Appln TOP DAILY 05/27/16 Reported Flomax (Tamsulosin Hcl) 0.4 Mg Cap 0.4 Mg PO QPM 05/27/16 Reported Klor-Con (Potassium Chloride) 20 Meq Tabcr 10 Meq PO Q2D 05/27/16 Reported Synthroid (Levothyroxine Sodium) 25 Mcg Tab 25 Mcg PO DAILY 05/27/16 Reported Tylenol (Acetaminophen) 325 Mg Tab 325 Mg PO TID 05/27/16 Reported Gas-X (Simethicone) 80 Mg Chw 80 Mg PO QID PRN 05/27/16 Reported Milk Of Magnesia (Magnesium Hydroxide) 30 Ml Susp 30 Ml PO DAILY PRN 05/27/16 Reported Lopressor (Metoprolol Tartrate) 25 Mg Tab 25 Mg PO QAM 05/27/16 Reported HOLD FOR HR <60 OR SBP <90 Citalopram Hydrobromide 10 Mg Tab 10 Mg PO DAILY 90 05/27/16 Reported Sinemet 25MG/100MG (Carbidopa/Levodopa) 1 Ea Tab 2 Tab PO TID@0900,1300,1700 30 05/09/16 Rx Tylenol Arthritis Ext Rel (Acetaminophen) 650 Mg Cplt 650 Mg PO TID 05/07/16 Reported Zestril (Lisinopril) 5 Mg Tab 2.5 Mg PO QAM 05/07/16 Reported Lasix (Furosemide) 20 Mg Tab 20 Mg PO QAM 90 05/07/16 Reported Inpatient Medications: Current Inpatient Medications Medications (Trade) Dose Ordered Sig/Concetta Route Start Time Stop Time Status Last Admin Dose Admin Docusate Sodium (coLACE CAP) 100 mg BID PO 08/15/16 08:00 09/14/16 08:59 08/20/16 08:31 100 MG Carbidopa/Levodopa (Sinemet 25/ 100MG Tab) 2 tab TID@0900,1300,1700 PO 08/15/16 09:00 09/14/16 08:59 08/20/16 08:32 2 TAB Carbidopa/Levodopa (Sinemet Cr 25/ 100MG Tab) 1 tab HS PO 08/15/16 21:00 09/14/16 20:59 08/19/16 19:54 1 TAB Levothyroxine Sodium (Synthroid Tab) 25 mcg DAILYBB PO 08/15/16 06:30 09/14/16 06:29 08/20/16 06:02 25 MCG Lisinopril (Zestril Tab) 2.5 mg QAM PO 08/15/16 08:00 09/14/16 08:59 08/20/16 08:32 2.5 MG Metoprolol Tartrate (Lopressor Tab) 25 mg QAM PO 08/15/16 08:00 09/14/16 08:59 08/20/16 08:31 25 MG Ranitidine HCl (zANTac TAB) 150 mg DAILY PO 08/15/16 08:00 09/14/16 08:59 08/20/16 08:32 150 MG Ranitidine HCl (zANTac TAB) 75 mg QPM PO 08/15/16 21:00 09/14/16 20:59 08/19/16 19:54 75 MG Senna (Senokot Tab) 17.2 mg QAM PRN PO 08/15/16 01:45 09/14/16 01:44 08/18/16 08:16 17.2 MG Tamsulosin HCl (Flomax Cap) 0.4 mg QPM PO 08/15/16 21:00 09/14/16 20:59 08/19/16 19:54 0.4 MG Triamcinolone Acetonide (Kenalog 0.1% Cream) 1 appln DAILY EXT 08/15/16 08:00 09/14/16 08:59 08/20/16 08:31 1 APPLN Cyanocobalamin (Vitamin B-12 Tab) 1,000 mcg QAM PO 08/15/16 08:00 09/14/16 08:59 08/20/16 08:31 1,000 MCG Miscellaneous Information (Order Awaiting Action) 1 ea QS N/A 08/15/16 08:00 09/14/16 07:59 Fluticasone Propionate (Flonase Nasal [place]) 2 sprays HS DIETER 08/15/16 21:00 09/14/16 20:59 08/19/16 19:54 2 SPRAYS Acetaminophen (Tylenol Tab) 650 mg Q4H PRN PO 08/15/16 01:45 09/14/16 01:44 Al Hydrox/Mg Hydrox/Simethicone (Maalox Max Susp) 15 ml Q4H PRN PO 08/15/16 01:45 09/14/16 01:44 Magnesium Hydroxide (Milk Of Magnesia Susp) 30 ml Q6H PRN PO 08/15/16 01:45 09/14/16 01:44 Polyethylene (Miralax Powder Packet) 17 gm DAILY PRN PO 08/15/16 01:45 09/14/16 01:44 08/17/16 12:30 17 GM Ondansetron HCl (Zofran Inj) 4 mg Q6H PRN IV 08/15/16 01:45 09/14/16 01:44 Olanzapine (Zyprexa Zydis Od Tab) 1.25 mg HS PRN PO 08/15/16 01:45 09/14/16 01:44 08/16/16 20:49 1.25 MG Citalopram Hydrobromide 10 mg 10 mg DAILY PO 08/15/16 08:00 09/14/16 07:59 08/20/16 08:31 10 MG Furosemide/Syringe (Lasix Inj/ Syringe) 2 ml @ 4 mls/min BID17 IV 08/15/16 20:00 09/14/16 19:59 08/20/16 08:32 4 MLS/MIN Potassium Chloride 10 meq 10 meq Q2D@0900 PO 08/17/16 09:00 09/16/16 08:59 08/19/16 09:18 10 MEQ Heparin Sodium/ Dextrose (Heparin 25,000 Unit/500ml D5W) 500 ml @ 30 mls/hr [id number] PRN IV 08/16/16 01:30 09/15/16 01:29 08/20/16 06:21 30 MLS/HR Nitrofurantoin Macrocrystals 100 mg 100 mg BID PO 08/17/16 09:00 08/27/16 08:59 08/20/16 08:31 100 MG Ceftriaxone Sodium/Dextrose (Rocephin Inj/ Dextrose Add-[place] 50ML) 50 ml @ 100 mls/hr DAILY@0800 IV 08/17/16 09:00 08/27/16 07:59 08/20/16 08:31 100 MLS/HR Review of Systems Review of Systems Constitutional: No chills, No fever Eyes: No blurred vision Neurological: No dizzy Gastrointestinal: No abdominal pain Cardiovascular: No chest pain Respiratory: No shortness of breath Male : + see HPI Additional Comments: Unable to fully asses ROS due to confusion. Physical Exam Vital Signs: Vital Signs Past 12 Hours Date Time Temp Pulse Resp B/P Pulse Ox O2 Delivery O2 Flow Rate FiO2 08/20/16 07:48 36.6 92 20 167/91 96 Room Air 08/20/16 00:22 Room Air 08/20/16 00:17 36.5 81 18 114/65 97 Room Air Physical Exam: General Appearance: WD/WN, no apparent distress ENT: hearing grossly normal Neck: no JVD Respiratory/Chest: no respiratory distress, no accessory muscle use 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: alert, normal mood/affect, + disoriented Skin: normal color, warm/dry Assessment & Plan Assessment & Plan UTI Ecoli positive culture without sepsis. Continue IV imipenem. Recommend oral antibiotic x 2 weeks upon discharge- preferably Bactrim. Will get bladder scan to evaluate his residual. If >250ml recommend inserting dan and will start finasteride for BPH. Creatinine has been fluctuating between 1.1 to 1.4- will renal u/s to evaluate kidneys for hydro. Thanks for the consult. Will continue to follow along with primary service. Pt has no hydro but does have bilateral renal cysts which are clinically insignificant. Agree with bladder scan and record residual . Start finasteride . F?U as outpt to monitor urine
[2016-08-20 10:23] VITALS: BP 109/57
--- NOTE | 2016-08-20 11:39 | DIAGNOSTIC IMAGING REPORT ---
EXAMINATION: RENAL ULTRASOUND CLINICAL HISTORY: UTI COMPARISON STUDY: 07/11/2014 FINDINGS: The right kidney measures 13 cm. The left kidney measures 12.9 cm. There is no evidence of hydronephrosis. There are multiple bilateral renal cysts. The 2 largest cysts on the right each measure 38 mm. The 2 largest cysts on the left measure 15.9 cm a 3.2 cm respectively. No bladder masses are visualized. Bilateral ureteral jets were evident. IMPRESSION : 1. Bilateral renal cysts including a 15.9 cm left renal cyst. 2. No evidence of hydronephrosis Electronically signed by: Robb Palacios M.D. 08/20/2016 11:38 AM Dictated Date/Time: 08/20/2016 11:34 AM
[2016-08-20 16:04] VITALS: BP 138/72; PULSE 88; TEMP 36.7; O2SAT 93
--- NOTE | 2016-08-20 20:36 | Progress Note ---
Subjective Subjective Date of Service: Aug 20, 2016. Pt evaluation today including: conversation w/ patient, physical exam, chart review, review of studies, review of inpatient medication list Problem List Medical Problems: (1) Fecal impaction Status: Acute (2) K92.0 Status: Acute (3) Metabolic encephalopathy Status: Acute (4) Non-ST elevation [place] (NSTEMI) Status: Acute (5) Pneumonia Status: Acute (6) Stool guaiac positive Status: Acute (7) Upper GI bleed Status: Acute (8) Weakness Status: Acute Review of Systems Constitutional: No fever Respiratory: No cough Cardiac: No chest pain Abdomen: No pain Musculoskeletal: No joint pain Male : No dysuria Neurologic: No memory loss Psychiatric: No depression symptoms Endo: No fatigue Physical Exam Vital Signs Vital Signs Past 24 Hours: Date Time Temp Pulse Resp B/P Pulse Ox O2 Delivery O2 Flow Rate FiO2 08/20/16 16:10 Room Air 08/20/16 16:04 36.7 88 20 138/72 93 08/20/16 10:23 109/57 08/20/16 08:20 Room Air 08/20/16 07:48 36.6 92 20 167/91 96 Room Air 08/20/16 00:22 Room Air 08/20/16 00:17 36.5 81 18 114/65 97 Room Air Physical Exam: General Appearance: WD/WN, no apparent distress Eyes: bilateral eyes normal inspection ENT: hearing grossly normal Neck: supple Respiratory/Chest: lungs clear Cardiovascular: no edema Abdomen: non tender Extremities: normal inspection 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: no motor/sensory deficits, normal mood/affect Skin: warm/dry Medications Medications: Current Inpatient Medications Medications (Trade) Dose Ordered Sig/[place] Route Start Time Stop Time Status Last Admin Dose Admin Docusate Sodium (coLACE CAP) 100 mg BID PO 08/15/16 08:00 09/14/16 08:59 08/20/16 08:31 100 MG Carbidopa/Levodopa (Sinemet 25/ 100MG Tab) 2 tab TID@0900,1300,1700 PO 08/15/16 09:00 09/14/16 08:59 08/20/16 16:26 2 TAB Carbidopa/Levodopa (Sinemet Cr 25/ 100MG Tab) 1 tab HS PO 08/15/16 21:00 09/14/16 20:59 08/19/16 19:54 1 TAB Levothyroxine Sodium (Synthroid Tab) 25 mcg DAILYBB PO 08/15/16 06:30 09/14/16 06:29 08/20/16 06:02 25 MCG Lisinopril (Zestril Tab) 2.5 mg QAM PO 08/15/16 08:00 09/14/16 08:59 08/20/16 08:32 2.5 MG Metoprolol Tartrate (Lopressor Tab) 25 mg QAM PO 08/15/16 08:00 09/14/16 08:59 08/20/16 08:31 25 MG Ranitidine HCl (zANTac TAB) 150 mg DAILY PO 08/15/16 08:00 09/14/16 08:59 08/20/16 08:32 150 MG Ranitidine HCl (zANTac TAB) 75 mg QPM PO 08/15/16 21:00 09/14/16 20:59 08/19/16 19:54 75 MG Senna (Senokot Tab) 17.2 mg QAM PRN PO 08/15/16 01:45 09/14/16 01:44 08/18/16 08:16 17.2 MG Tamsulosin HCl (Flomax Cap) 0.4 mg QPM PO 08/15/16 21:00 09/14/16 20:59 08/19/16 19:54 0.4 MG Triamcinolone Acetonide (Kenalog 0.1% Cream) 1 appln DAILY EXT 08/15/16 08:00 09/14/16 08:59 08/20/16 08:31 1 APPLN Cyanocobalamin (Vitamin B-12 Tab) 1,000 mcg QAM PO 08/15/16 08:00 09/14/16 08:59 08/20/16 08:31 1,000 MCG Fluticasone Propionate (Flonase Nasal [place]) 2 sprays HS DIETER 08/15/16 21:00 09/14/16 20:59 08/19/16 19:54 2 SPRAYS Acetaminophen (Tylenol Tab) 650 mg Q4H PRN PO 08/15/16 01:45 09/14/16 01:44 Al Hydrox/Mg Hydrox/Simethicone (Maalox Max Susp) 15 ml Q4H PRN PO 08/15/16 01:45 09/14/16 01:44 Magnesium Hydroxide (Milk Of Magnesia Susp) 30 ml Q6H PRN PO 08/15/16 01:45 09/14/16 01:44 Polyethylene (Miralax Powder Packet) 17 gm DAILY PRN PO 08/15/16 01:45 09/14/16 01:44 08/17/16 12:30 17 GM Ondansetron HCl (Zofran Inj) 4 mg Q6H PRN IV 08/15/16 01:45 09/14/16 01:44 Olanzapine (Zyprexa Zydis Od Tab) 1.25 mg HS PRN PO 08/15/16 01:45 09/14/16 01:44 08/16/16 20:49 1.25 MG Citalopram Hydrobromide 10 mg 10 mg DAILY PO 08/15/16 08:00 09/14/16 07:59 08/20/16 08:31 10 MG Furosemide/Syringe (Lasix Inj/ Syringe) 2 ml @ 4 mls/min BID17 IV 08/15/16 20:00 09/14/16 19:59 08/20/16 16:25 4 MLS/MIN Potassium Chloride 10 meq 10 meq Q2D@0900 PO 08/17/16 09:00 09/16/16 08:59 08/19/16 09:18 10 MEQ Heparin Sodium/ Dextrose (Heparin 25,000 Unit/500ml D5W) 500 ml @ 30 mls/hr [id number] PRN IV 08/16/16 01:30 09/15/16 01:29 08/20/16 06:21 30 MLS/HR Nitrofurantoin Macrocrystals 100 mg 100 mg BID PO 08/17/16 09:00 08/27/16 08:59 08/20/16 08:31 100 MG Ceftriaxone Sodium/Dextrose (Rocephin Inj/ Dextrose Add-[place] 50ML) 50 ml @ 100 mls/hr DAILY@0800 IV 08/17/16 09:00 08/27/16 07:59 08/20/16 08:31 100 MLS/HR Finasteride (Proscar Tab) 5 mg QAM PO 08/21/16 08:00 09/20/16 07:59 Laboratory Data Labs: Last 24 Hours Test 08/20/16 06:19 White Blood Count 6.18 K/uL Red Blood Count 3.58 M/uL Hemoglobin 10.9 g/dL Hematocrit 33.1 % Mean Corpuscular Volume 92.5 fL Mean Corpuscular Hemoglobin 30.4 pg Mean Corpuscular Hemoglobin Concent 32.9 g/dl Platelet Count 362 K/uL Mean Platelet Volume 9.8 fL Neutrophils (%) (Auto) 51.3 % Lymphocytes (%) (Auto) 25.6 % Monocytes (%) (Auto) 16.5 % Eosinophils (%) (Auto) 5.0 % Basophils (%) (Auto) 1.3 % Neutrophils # (Auto) 3.17 K/uL Lymphocytes # (Auto) 1.58 K/uL Monocytes # (Auto) 1.02 K/uL Eosinophils # (Auto) 0.31 K/uL Basophils # (Auto) 0.08 K/uL RDW Standard Deviation 52.7 fL RDW Coefficient of Variation 15.5 % Immature Granulocyte % (Auto) 0.3 % Immature Granulocyte # (Auto) 0.02 K/uL Activated Partial Thromboplast Time 60.1 SECONDS Partial Thromboplastin Ratio 2.3 Sodium Level 141 mmol/L Potassium Level 3.6 mmol/L Chloride Level 102 mmol/L Carbon Dioxide Level 28 mmol/L Anion Gap 11.0 mmol/L Blood Urea Nitrogen 18 mg/dl Creatinine 1.20 mg/dl Est Creatinine Clear Calc Drug Dose 48.9 ml/min Estimated GFR () 61.8 Estimated GFR (Non- 53.3 BUN/Creatinine Ratio 14.7 Random Glucose 90 mg/dl Calcium Level 8.7 mg/dl Phosphorus Level 3.0 mg/dl Magnesium Level 2.3 mg/dl Total Bilirubin 0.3 mg/dl Aspartate Amino Transf (AST/SGOT) 11 U/L Alanine Aminotransferase (ALT/SGPT) 6 U/L Alkaline Phosphatase 97 U/L Total Protein 7.0 gm/dl Albumin 2.8 gm/dl Globulin 4.2 gm/dl Albumin/Globulin Ratio 0.7 Assessment and Plan 89 y/o M with Hx of Parkinson disease, HTN, BPH. Presents from home with weakness and confusion. He was found to UTI and B/L lower ext swelling/ tenderness delirium, (acute metabolic encephalopathy) / weakness - likely due to UTI , today lethargic and slightly confused, mental status state weans on and off CT head was negative for bleed UTI present on admission, ecoli resistant to levofloxacin discontinue Levaquin culture results (growing ecoli resistant to levofloxacin) continue imipenem , day # 4 /14 (can be switched to Nitrofurantoin on discharge ) normal procalcitonin level urology consulted and started finasteride renal US: Cyst left kidney worsening Parkinson disease cont Sinemet HTN - cont home meds Left lower extremity DVT seen from the common femoral vein through the popliteal vein. currently on heparin drip, D/W with patient and family, may switch him to xarelto on d/c for 3-6 months
[2016-08-20] MEDS: TAMSULOSIN HCL 0.4 MG CAP PO SCH (21:42)
[2016-08-20] MEDS: FLUTICASONE PROPIONATE NA SPR 16 GM BTL NAE SCH (21:43)
[2016-08-20] MEDS: CARBIDOPA/LEVODOPA 25/100MG EXT REL TAB PO SCH (21:45)
[2016-08-21 00:09] VITALS: BP 131/67; PULSE 86; TEMP 37.2; O2SAT 95
[2016-08-21] MEDS: OLANZAPINE ZYDIS 5 MG ORALLY DIS. TAB PO PRN (02:22)
[2016-08-21 07:26] VITALS: BP 127/83; PULSE 81; TEMP 36.6; O2SAT 97
--- NOTE | 2016-08-21 07:57 | Progress Note ---
Subjective Date of Service: Aug 21, 2016. Subjective Pt evaluation today including: conversation w/ patient, chart review, lab review Voiding: dan catheter in place (patent, draining clear, yellow urine) 89 yo male with a UTI and incomplete bladder emptying. Dan catheter replaced yesterday. He is currently on finasteride and tamsulosin. UC&S growing e coli. Sensitive to ceftriaxone. The pt was sleeping this morning, difficult to arouse. He did state he was "feeling OK" and denied pain for the brief moment he was awake. He also stated something incoherent, and then quickly fell back asleep. Problem List Medical Problems: (1) Fecal impaction Status: Acute (2) K92.0 Status: Acute (3) Metabolic encephalopathy Status: Acute (4) Non-ST elevation [place] (NSTEMI) Status: Acute (5) Pneumonia Status: Acute (6) Stool guaiac positive Status: Acute (7) Upper GI bleed Status: Acute (8) Weakness Status: Acute Review of Systems Pt sleeping this morning, and only able to deny pain prior to falling back asleep. Objective Vital Signs Date Time Temp Pulse Resp B/P Pulse Ox O2 Delivery O2 Flow Rate FiO2 08/21/16 07:26 36.6 81 16 127/83 97 Room Air 08/21/16 01:00 Room Air 08/21/16 00:09 37.2 86 20 131/67 95 Room Air 08/20/16 16:10 Room Air 08/20/16 16:04 36.7 88 20 138/72 93 08/20/16 10:23 109/57 08/20/16 08:20 Room Air 08/20/16 07:48 36.6 92 20 167/91 96 Room Air Physical Exam General Appearance: no apparent distress Eyes: normal inspection ENT: hearing grossly normal Neck: no JVD Respiratory/Chest: no respiratory distress, no accessory muscle use Cardiovascular: no JVD Extremities: normal inspection 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: normal mood/affect, + pertinent finding (Pt alert with stimulii, but quickly returned to sleeping state) Skin: normal color Laboratory Results Last 24 Hours Test 08/21/16 04:44 Assessment and Plan A/P: UTI, incomplete bladder emptying AFVSS. Will leave dan catheter in place for 7-10 days. Attempt a TOV as an outpatient at that time. Continue finasteride and tamsulosin. Recommend transitioning the pt to 10-14 days of Bactrim DS prior to d/c home. No further management at this time. Recall PRN issues. Will arrange for outpatient f/u. Thanks for allowing us to participate in this pt's care.
[2016-08-21] MEDS: LEVOTHYROXINE 25 MCG TAB PO SCH (08:01)
[2016-08-21] MEDS: CITALOPRAM 20 MG TAB PO SCH (08:04)
[2016-08-21] MEDS: DOCUSATE SODIUM 100 MG CAP PO SCH ×2 (08:04→19:39)
[2016-08-21] MEDS: NITROFURANTOIN MONOHYDRATE 100 MG CAP PO SCH ×2 (08:05→19:40)
[2016-08-21] MEDS: METOPROLOL TARTRATE 25 MG TAB PO SCH (08:05)
[2016-08-21] MEDS: FINASTERIDE 5 MG TAB PO SCH (08:06)
[2016-08-21] MEDS: LISINOPRIL 2.5 MG TAB PO SCH (08:07)
[2016-08-21] MEDS: RANITIDINE HCL 150 MG TAB PO SCH ×2 (08:07→19:41)
[2016-08-21] MEDS: CYANOCOBALAMIN 500 MCG TAB (VIT B-12) PO SCH (08:07)
[2016-08-21] MEDS: TRIAMCINOLONE ACET 0.1% CR 15 GM TUBE EXT SCH (08:08)
[2016-08-21 08:41] LABS: PARTIAL THROMBOPLASTIN RATIO 2.4
[2016-08-21] MEDS: CEFTRIAXONE SOD INJ 1 GM in DEXTROSE 5% ADD-VANTAGE 50ML 50 ML IV SCH (09:53)
[2016-08-21] MEDS: CARBIDOPA/LEVODOPA 25/100MG TAB PO SCH ×3 (10:02→16:46)
[2016-08-21] MEDS: POTASSIUM CHLORIDE 10 MEQ TABCR PO SCH (10:03)
[2016-08-21] MEDS: FUROSEMIDE INJ 20 MG in SYRINGE 0 ML IV SCH ×2 (11:44→16:46)
[2016-08-21 15:42] VITALS: BP 105/65; PULSE 70; TEMP 36.5; O2SAT 96
[2016-08-21] MEDS: HEPARIN 25,000 UNIT/500ML D5W 500 ML IV PRN (16:45)
[2016-08-21] MEDS: TAMSULOSIN HCL 0.4 MG CAP PO SCH (19:41)
[2016-08-21] MEDS: FLUTICASONE PROPIONATE NA SPR 16 GM BTL NAE SCH (19:41)
--- NOTE | 2016-08-21 20:00 | Progress Note ---
Subjective Subjective Date of Service: Aug 21, 2016. Pt evaluation today including: conversation w/ patient, physical exam, chart review, review of studies, review of inpatient medication list Problem List Medical Problems: (1) Fecal impaction Status: Acute (2) K92.0 Status: Acute (3) Metabolic encephalopathy Status: Acute (4) Non-ST elevation [place] (NSTEMI) Status: Acute (5) Pneumonia Status: Acute (6) Stool guaiac positive Status: Acute (7) Upper GI bleed Status: Acute (8) Weakness Status: Acute Review of Systems Constitutional: No fever ENT: No hearing loss Respiratory: No cough Cardiac: No chest pain Abdomen: No pain Male : No dysuria Neurologic: No memory loss Endo: No fatigue Physical Exam Vital Signs Vital Signs Past 24 Hours: Date Time Temp Pulse Resp B/P Pulse Ox O2 Delivery O2 Flow Rate FiO2 08/21/16 15:42 36.5 70 18 105/65 96 08/21/16 08:15 Room Air 08/21/16 07:26 36.6 81 16 127/83 97 Room Air 08/21/16 01:00 Room Air 08/21/16 00:09 37.2 86 20 131/67 95 Room Air Physical Exam: General Appearance: WD/WN, no apparent distress Eyes: bilateral eyes normal inspection ENT: hearing grossly normal Neck: supple Respiratory/Chest: chest non-tender, normal breath sounds Cardiovascular: regular rate, rhythm, no JVD Abdomen: non tender, no organomegaly Extremities: non-tender, no pedal edema 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: no motor/sensory deficits, alert Medications Medications: Current Inpatient Medications Medications (Trade) Dose Ordered Sig/[facility] Route Start Time Stop Time Status Last Admin Dose Admin Docusate Sodium (coLACE CAP) 100 mg BID PO 08/15/16 08:00 09/14/16 08:59 08/21/16 19:39 100 MG Carbidopa/Levodopa (Sinemet 25/ 100MG Tab) 2 tab TID@0900,1300,1700 PO 08/15/16 09:00 09/14/16 08:59 08/21/16 16:46 2 TAB Carbidopa/Levodopa (Sinemet Cr 25/ 100MG Tab) 1 tab HS PO 08/15/16 21:00 09/14/16 20:59 08/20/16 21:45 1 TAB Levothyroxine Sodium (Synthroid Tab) 25 mcg DAILYBB PO 08/15/16 06:30 09/14/16 06:29 08/21/16 08:01 25 MCG Lisinopril (Zestril Tab) 2.5 mg QAM PO 08/15/16 08:00 09/14/16 08:59 08/21/16 08:07 2.5 MG Metoprolol Tartrate (Lopressor Tab) 25 mg QAM PO 08/15/16 08:00 09/14/16 08:59 08/21/16 08:05 25 MG Ranitidine HCl (zANTac TAB) 150 mg DAILY PO 08/15/16 08:00 09/14/16 08:59 08/21/16 08:07 150 MG Ranitidine HCl (zANTac TAB) 75 mg QPM PO 08/15/16 21:00 09/14/16 20:59 08/21/16 19:41 75 MG Senna (Senokot Tab) 17.2 mg QAM PRN PO 08/15/16 01:45 09/14/16 01:44 08/18/16 08:16 17.2 MG Tamsulosin HCl (Flomax Cap) 0.4 mg QPM PO 08/15/16 21:00 09/14/16 20:59 08/21/16 19:41 0.4 MG Triamcinolone Acetonide (Kenalog 0.1% Cream) 1 appln DAILY EXT 08/15/16 08:00 09/14/16 08:59 08/21/16 08:08 1 APPLN Cyanocobalamin (Vitamin B-12 Tab) 1,000 mcg QAM PO 08/15/16 08:00 09/14/16 08:59 08/21/16 08:07 1,000 MCG Fluticasone Propionate (Flonase Nasal [place]) 2 sprays HS DIETER 08/15/16 21:00 09/14/16 20:59 08/21/16 19:41 2 SPRAYS Acetaminophen (Tylenol Tab) 650 mg Q4H PRN PO 08/15/16 01:45 09/14/16 01:44 Al Hydrox/Mg Hydrox/Simethicone (Maalox Max Susp) 15 ml Q4H PRN PO 08/15/16 01:45 09/14/16 01:44 Magnesium Hydroxide (Milk Of Magnesia Susp) 30 ml Q6H PRN PO 08/15/16 01:45 09/14/16 01:44 Polyethylene (Miralax Powder Packet) 17 gm DAILY PRN PO 08/15/16 01:45 09/14/16 01:44 08/17/16 12:30 17 GM Ondansetron HCl (Zofran Inj) 4 mg Q6H PRN IV 08/15/16 01:45 09/14/16 01:44 Olanzapine (Zyprexa Zydis Od Tab) 1.25 mg HS PRN PO 08/15/16 01:45 09/14/16 01:44 08/21/16 02:22 1.25 MG Citalopram Hydrobromide 10 mg 10 mg DAILY PO 08/15/16 08:00 09/14/16 07:59 08/21/16 08:04 10 MG Furosemide/Syringe (Lasix Inj/ Syringe) 2 ml @ 4 mls/min BID17 IV 08/15/16 20:00 09/14/16 19:59 08/21/16 16:46 4 MLS/MIN Potassium Chloride 10 meq 10 meq Q2D@0900 PO 08/17/16 09:00 09/16/16 08:59 08/21/16 10:03 10 MEQ Heparin Sodium/ Dextrose (Heparin 25,000 Unit/500ml D5W) 500 ml @ 30 mls/hr [id number] PRN IV 08/16/16 01:30 09/15/16 01:29 08/21/16 16:45 30 MLS/HR Nitrofurantoin Macrocrystals 100 mg 100 mg BID PO 08/17/16 09:00 08/27/16 08:59 08/21/16 19:40 100 MG Ceftriaxone Sodium/Dextrose (Rocephin Inj/ Dextrose Add-[place] 50ML) 50 ml @ 100 mls/hr DAILY@0800 IV 08/17/16 09:00 08/27/16 07:59 08/21/16 09:53 100 MLS/HR Finasteride (Proscar Tab) 5 mg QAM PO 08/21/16 08:00 09/20/16 07:59 08/21/16 08:06 5 MG Laboratory Data Labs: Last 24 Hours Test 08/21/16 07:50 Activated Partial Thromboplast Time 62.4 SECONDS Partial Thromboplastin Ratio 2.4 Assessment and Plan 89 y/o M with Hx of Parkinson disease, HTN, BPH. Presents from home with weakness and confusion. He was found to UTI and B/L lower ext swelling/ tenderness delirium, (acute metabolic encephalopathy) / weakness - likely due to UTI , today lethargic and slightly confused, mental status state weans on and off CT head was negative for bleed UTI present on admission, ecoli resistant to levofloxacin culture results (growing ecoli resistant to levofloxacin) continue imipenem , day # 5 /14 (can be switched to bactrim on discharge) normal procalcitonin level urology consulted and started finasteride, cont dan 7-10 days, TOV renal US: Cyst left kidney Parkinson disease cont Sinemet HTN - cont home meds Left lower extremity DVT seen from the common femoral vein through the popliteal vein. currently on heparin drip, D/W with patient and family, may switch him to xarelto on d/c for 3-6 months
[2016-08-21] MEDS: CARBIDOPA/LEVODOPA 25/100MG EXT REL TAB PO SCH (21:44)
[2016-08-22 00:08] VITALS: BP 134/86; PULSE 91; TEMP 36.8; O2SAT 96
[2016-08-22] MEDS: LEVOTHYROXINE 25 MCG TAB PO SCH (07:15)
[2016-08-22 07:20] LABS: HEMATOCRIT 35.9 % (42-52); MEAN CELL VOLUME 89.8 fL (80-100); MEAN CORPUSCULAR HGB CONC 33.4 g/dl (32-36); MEAN PLATELET VOLUME 9.2 fL (7.4-10.4); PLATELET COUNT 393 K/uL (130-400); WHITE BLOOD COUNT 8.21 K/uL (4.8-10.8)
[2016-08-22 07:33] VITALS: BP 150/85; PULSE 99; TEMP 36.7; O2SAT 96
[2016-08-22 07:45] LABS: PARTIAL THROMBOPLASTIN RATIO 2.2
[2016-08-22] MEDS: CEFTRIAXONE SOD INJ 1 GM in DEXTROSE 5% ADD-VANTAGE 50ML 50 ML IV SCH (08:19)
[2016-08-22] MEDS: FUROSEMIDE INJ 20 MG in SYRINGE 0 ML IV SCH ×2 (08:19→16:35)
[2016-08-22] MEDS: RANITIDINE HCL 150 MG TAB PO SCH ×2 (08:25→20:32)
[2016-08-22] MEDS: SENNA 8.6 MG TAB PO PRN (08:25)
[2016-08-22] MEDS: NITROFURANTOIN MONOHYDRATE 100 MG CAP PO SCH ×2 (08:25→20:27)
[2016-08-22] MEDS: FINASTERIDE 5 MG TAB PO SCH (08:25)
[2016-08-22] MEDS: METOPROLOL TARTRATE 25 MG TAB PO SCH (08:25)
[2016-08-22] MEDS: DOCUSATE SODIUM 100 MG CAP PO SCH ×2 (08:26→20:28)
[2016-08-22] MEDS: LISINOPRIL 2.5 MG TAB PO SCH (08:26)
[2016-08-22] MEDS: CITALOPRAM 20 MG TAB PO SCH (08:26)
[2016-08-22] MEDS: CARBIDOPA/LEVODOPA 25/100MG TAB PO SCH ×3 (08:26→16:35)
[2016-08-22] MEDS: CYANOCOBALAMIN 500 MCG TAB (VIT B-12) PO SCH (08:26)
[2016-08-22] MEDS: TRIAMCINOLONE ACET 0.1% CR 15 GM TUBE EXT SCH (08:27)
[2016-08-22] MEDS: HEPARIN 25,000 UNIT/500ML D5W 500 ML IV PRN (09:58)
[2016-08-22] MEDS ORDERED: ZOLPIDEM TARTRATE 5 MG TAB PO PRN (15:00)
[2016-08-22 15:27] VITALS: BP 125/73; PULSE 82; TEMP 36.7; O2SAT 93
[2016-08-22] MEDS ORDERED: RIVAROXABAN 20 MG TAB PO SCH (20:00)
[2016-08-22] MEDS ORDERED: FLUTICASONE PROPIONATE NA SPR 16 GM BTL SCH (20:00)
[2016-08-22] MEDS ORDERED: [UNRECOGNIZED DRUG - REMARK] ONE (20:00)
[2016-08-22] MEDS: RIVAROXABAN TAB 15 MG TAB PO SCH (20:26)
[2016-08-22] MEDS: TAMSULOSIN HCL 0.4 MG CAP PO SCH (20:29)
[2016-08-22] MEDS: OLANZAPINE ZYDIS 5 MG ORALLY DIS. TAB PO PRN (20:30)
[2016-08-22] MEDS: FLUTICASONE PROPIONATE NA SPR 16 GM BTL NAE SCH (20:32)
[2016-08-22] MEDS: CARBIDOPA/LEVODOPA 25/100MG EXT REL TAB PO SCH (20:32)
--- NOTE | 2016-08-22 21:40 | Progress Note ---
Subjective Subjective Date of Service: Aug 22, 2016. Pt evaluation today including: conversation w/ patient, physical exam, chart review, review of studies, review of inpatient medication list Problem List Medical Problems: (1) Fecal impaction Status: Acute (2) K92.0 Status: Acute (3) Metabolic encephalopathy Status: Acute (4) Non-ST elevation [place] (NSTEMI) Status: Acute (5) Pneumonia Status: Acute (6) Stool guaiac positive Status: Acute (7) Upper GI bleed Status: Acute (8) Weakness Status: Acute Review of Systems Constitutional: No fever ENT: No hearing loss Respiratory: No cough Cardiac: No chest pain Abdomen: No pain Male : No dysuria Psychiatric: No depression symptoms Physical Exam Vital Signs Vital Signs Past 24 Hours: Date Time Temp Pulse Resp B/P Pulse Ox O2 Delivery O2 Flow Rate FiO2 08/22/16 20:00 Room Air 08/22/16 16:00 Room Air 08/22/16 15:27 36.7 82 18 125/73 93 Room Air 08/22/16 08:30 Room Air 08/22/16 07:33 36.7 99 20 150/85 96 Room Air 08/22/16 00:08 36.8 91 20 134/86 96 Room Air 08/22/16 00:00 Room Air Physical Exam: General Appearance: no apparent distress Eyes: bilateral eyes normal inspection ENT: hearing grossly normal Neck: supple Respiratory/Chest: lungs clear, no respiratory distress Cardiovascular: no gallop, no murmur Abdomen: soft Extremities: non-tender 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: normal mood/affect Skin: warm/dry Medications Medications: Current Inpatient Medications Medications (Trade) Dose Ordered Sig/[facility] Route Start Time Stop Time Status Last Admin Dose Admin Docusate Sodium (coLACE CAP) 100 mg BID PO 08/15/16 08:00 09/14/16 08:59 08/22/16 20:28 100 MG Carbidopa/Levodopa (Sinemet 25/ 100MG Tab) 2 tab TID@0900,1300,1700 PO 08/15/16 09:00 09/14/16 08:59 08/22/16 16:35 2 TAB Carbidopa/Levodopa (Sinemet Cr 25/ 100MG Tab) 1 tab HS PO 08/15/16 21:00 09/14/16 20:59 08/22/16 20:32 1 TAB Levothyroxine Sodium (Synthroid Tab) 25 mcg DAILYBB PO 08/15/16 06:30 09/14/16 06:29 08/22/16 07:15 25 MCG Lisinopril (Zestril Tab) 2.5 mg QAM PO 08/15/16 08:00 09/14/16 08:59 08/22/16 08:26 2.5 MG Metoprolol Tartrate (Lopressor Tab) 25 mg QAM PO 08/15/16 08:00 09/14/16 08:59 08/22/16 08:25 25 MG Ranitidine HCl (zANTac TAB) 150 mg DAILY PO 08/15/16 08:00 09/14/16 08:59 08/22/16 08:25 150 MG Ranitidine HCl (zANTac TAB) 75 mg QPM PO 08/15/16 21:00 09/14/16 20:59 08/22/16 20:32 75 MG Senna (Senokot Tab) 17.2 mg QAM PRN PO 08/15/16 01:45 09/14/16 01:44 08/22/16 08:25 17.2 MG Tamsulosin HCl (Flomax Cap) 0.4 mg QPM PO 08/15/16 21:00 09/14/16 20:59 08/22/16 20:29 0.4 MG Triamcinolone Acetonide (Kenalog 0.1% Cream) 1 appln DAILY EXT 08/15/16 08:00 09/14/16 08:59 08/22/16 08:27 1 APPLN Cyanocobalamin (Vitamin B-12 Tab) 1,000 mcg QAM PO 08/15/16 08:00 09/14/16 08:59 08/22/16 08:26 1,000 MCG Fluticasone Propionate (Flonase Nasal [place]) 2 sprays HS DIETER 08/15/16 21:00 09/14/16 20:59 08/22/16 20:32 2 SPRAYS Acetaminophen (Tylenol Tab) 650 mg Q4H PRN PO 08/15/16 01:45 09/14/16 01:44 Al Hydrox/Mg Hydrox/Simethicone (Maalox Max Susp) 15 ml Q4H PRN PO 08/15/16 01:45 09/14/16 01:44 Magnesium Hydroxide (Milk Of Magnesia Susp) 30 ml Q6H PRN PO 08/15/16 01:45 09/14/16 01:44 Polyethylene (Miralax Powder Packet) 17 gm DAILY PRN PO 08/15/16 01:45 09/14/16 01:44 08/17/16 12:30 17 GM Ondansetron HCl (Zofran Inj) 4 mg Q6H PRN IV 08/15/16 01:45 09/14/16 01:44 Olanzapine (Zyprexa Zydis Od Tab) 1.25 mg HS PRN PO 08/15/16 01:45 09/14/16 01:44 08/22/16 20:30 1.25 MG Citalopram Hydrobromide 10 mg 10 mg DAILY PO 08/15/16 08:00 09/14/16 07:59 08/22/16 08:26 10 MG Furosemide/Syringe (Lasix Inj/ Syringe) 2 ml @ 4 mls/min BID17 IV 08/15/16 20:00 09/14/16 19:59 08/22/16 16:35 4 MLS/MIN Potassium Chloride (Klor-Con M10) 10 meq Q2D@0900 PO 08/17/16 09:00 09/16/16 08:59 08/21/16 10:03 10 MEQ Nitrofurantoin Macrocrystals 100 mg 100 mg BID PO 08/17/16 09:00 08/27/16 08:59 08/22/16 20:27 100 MG Ceftriaxone Sodium/Dextrose (Rocephin Inj/ Dextrose Add-[place] 50ML) 50 ml @ 100 mls/hr DAILY@0800 IV 08/17/16 09:00 08/27/16 07:59 08/22/16 08:19 100 MLS/HR Finasteride (Proscar Tab) 5 mg QAM PO 08/21/16 08:00 09/20/16 07:59 08/22/16 08:25 5 MG Rivaroxaban (Xarelto Tab) 15 mg BID PO 08/22/16 20:00 09/21/16 19:59 08/22/16 20:26 15 MG Laboratory Data Labs: Last 24 Hours Test 08/22/16 07:00 White Blood Count 8.21 K/uL Red Blood Count 4.00 M/uL Hemoglobin 12.0 g/dL Hematocrit 35.9 % Mean Corpuscular Volume 89.8 fL Mean Corpuscular Hemoglobin 30.0 pg Mean Corpuscular Hemoglobin Concent 33.4 g/dl RDW Standard Deviation 50.9 fL RDW Coefficient of Variation 15.4 % Platelet Count 393 K/uL Mean Platelet Volume 9.2 fL Activated Partial Thromboplast Time 57.3 SECONDS Partial Thromboplastin Ratio 2.2 Assessment and Plan 89 y/o M with Hx of Parkinson disease, HTN, BPH. Presents from home with weakness and confusion. He was found to UTI and B/L lower ext swelling/ tenderness delirium, (acute metabolic encephalopathy) / weakness - likely due to UTI , today lethargic and slightly confused, mental status state weans on and off CT head was negative for bleed UTI present on admission, ecoli resistant to levofloxacin culture results (growing ecoli resistant to levofloxacin) continue imipenem , day # 6 /14 (can be switched to bactrim on discharge) normal procalcitonin level urology consulted and started finasteride, cont dan 7-10 days, TOV renal US: Cyst left kidney Parkinson disease cont Sinemet HTN - cont home meds Left lower extremity DVT seen from the common femoral vein through the popliteal vein. currently on heparin drip, D/W with patient and family, may switch him to xarelto on d/c for 3-6 months dispo: d/c tomorrow to Rehab
[2016-08-23 00:17] VITALS: BP 127/74; PULSE 82; TEMP 36.4; O2SAT 95
[2016-08-23] MEDS: LEVOTHYROXINE 25 MCG TAB PO SCH (06:35)
[2016-08-23 07:21] VITALS: BP 134/71; PULSE 80; TEMP 36.7; O2SAT 95
[2016-08-23 07:21] LABS: PARTIAL THROMBOPLASTIN RATIO 1.3
[2016-08-23] MEDS: CEFTRIAXONE SOD INJ 1 GM in DEXTROSE 5% ADD-VANTAGE 50ML 50 ML IV SCH (08:23)
[2016-08-23] MEDS: TRIAMCINOLONE ACET 0.1% CR 15 GM TUBE EXT SCH (08:23)
[2016-08-23] MEDS: CITALOPRAM 20 MG TAB PO SCH (08:23)
[2016-08-23] MEDS: NITROFURANTOIN MONOHYDRATE 100 MG CAP PO SCH (08:24)
[2016-08-23] MEDS: DOCUSATE SODIUM 100 MG CAP PO SCH ×2 (08:24→20:34)
[2016-08-23] MEDS: FINASTERIDE 5 MG TAB PO SCH (08:24)
[2016-08-23] MEDS: METOPROLOL TARTRATE 25 MG TAB PO SCH (08:24)
[2016-08-23] MEDS: RIVAROXABAN TAB 15 MG TAB PO SCH ×2 (08:25→20:36)
[2016-08-23] MEDS: RANITIDINE HCL 150 MG TAB PO SCH ×2 (08:25→20:36)
[2016-08-23] MEDS: CYANOCOBALAMIN 500 MCG TAB (VIT B-12) PO SCH (08:25)
[2016-08-23] MEDS: LISINOPRIL 2.5 MG TAB PO SCH (08:26)
[2016-08-23] MEDS: FUROSEMIDE INJ 20 MG in SYRINGE 0 ML IV SCH ×2 (08:26→17:50)
[2016-08-23] MEDS: CARBIDOPA/LEVODOPA 25/100MG TAB PO SCH ×3 (08:27→17:47)
[2016-08-23] MEDS: POTASSIUM CHLORIDE 10 MEQ TABCR PO SCH (08:27)
[2016-08-23] MEDS: CEPHALEXIN MONOHYDRATE 500 MG CAP PO SCH ×2 (13:18→20:35)
--- NOTE | 2016-08-23 14:35 | Progress Note ---
Subjective Subjective Date of Service: Aug 23, 2016. Pt evaluation today including: conversation w/ patient, physical exam, chart review, review of studies, review of inpatient medication list Problem List Medical Problems: (1) Fecal impaction Status: Acute (2) K92.0 Status: Acute (3) Metabolic encephalopathy Status: Acute (4) Non-ST elevation [place] (NSTEMI) Status: Acute (5) Pneumonia Status: Acute (6) Stool guaiac positive Status: Acute (7) Upper GI bleed Status: Acute (8) Weakness Status: Acute Review of Systems Constitutional: No fever ENT: No hearing loss Cardiac: No chest pain Abdomen: No pain Male : No dysuria Neurologic: No memory loss Psychiatric: No depression symptoms Physical Exam Vital Signs Vital Signs Past 24 Hours: Date Time Temp Pulse Resp B/P Pulse Ox O2 Delivery O2 Flow Rate FiO2 08/23/16 07:56 Room Air 08/23/16 07:21 36.7 80 18 134/71 95 Room Air 08/23/16 00:17 36.4 82 20 127/74 95 Room Air 08/23/16 00:00 Room Air 08/22/16 20:00 Room Air 08/22/16 16:00 Room Air 08/22/16 15:27 36.7 82 18 125/73 93 Room Air Physical Exam: General Appearance: WD/WN, no apparent distress Eyes: bilateral eyes normal inspection ENT: hearing grossly normal Neck: supple Respiratory/Chest: chest non-tender Cardiovascular: no edema Abdomen: non tender Extremities: non-tender 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: normal mood/affect Medications Medications: Current Inpatient Medications Medications (Trade) Dose Ordered Sig/[facility] Route Start Time Stop Time Status Last Admin Dose Admin Docusate Sodium (coLACE CAP) 100 mg BID PO 08/15/16 08:00 09/14/16 08:59 08/23/16 08:24 100 MG Carbidopa/Levodopa (Sinemet 25/ 100MG Tab) 2 tab TID@0900,1300,1700 PO 08/15/16 09:00 09/14/16 08:59 08/23/16 13:17 2 TAB Carbidopa/Levodopa (Sinemet Cr 25/ 100MG Tab) 1 tab HS PO 08/15/16 21:00 09/14/16 20:59 08/22/16 20:32 1 TAB Levothyroxine Sodium (Synthroid Tab) 25 mcg DAILYBB PO 08/15/16 06:30 09/14/16 06:29 08/23/16 06:35 25 MCG Lisinopril (Zestril Tab) 2.5 mg QAM PO 08/15/16 08:00 09/14/16 08:59 08/23/16 08:26 2.5 MG Metoprolol Tartrate (Lopressor Tab) 25 mg QAM PO 08/15/16 08:00 09/14/16 08:59 08/23/16 08:24 25 MG Ranitidine HCl (zANTac TAB) 150 mg DAILY PO 08/15/16 08:00 09/14/16 08:59 08/23/16 08:25 150 MG Ranitidine HCl (zANTac TAB) 75 mg QPM PO 08/15/16 21:00 09/14/16 20:59 08/22/16 20:32 75 MG Senna (Senokot Tab) 17.2 mg QAM PRN PO 08/15/16 01:45 09/14/16 01:44 08/22/16 08:25 17.2 MG Tamsulosin HCl (Flomax Cap) 0.4 mg QPM PO 08/15/16 21:00 09/14/16 20:59 08/22/16 20:29 0.4 MG Triamcinolone Acetonide (Kenalog 0.1% Cream) 1 appln DAILY EXT 08/15/16 08:00 09/14/16 08:59 08/23/16 08:23 1 APPLN Cyanocobalamin (Vitamin B-12 Tab) 1,000 mcg QAM PO 08/15/16 08:00 09/14/16 08:59 08/23/16 08:25 1,000 MCG Fluticasone Propionate (Flonase Nasal [place]) 2 sprays HS DIETER 08/15/16 21:00 09/14/16 20:59 08/22/16 20:32 2 SPRAYS Acetaminophen (Tylenol Tab) 650 mg Q4H PRN PO 08/15/16 01:45 09/14/16 01:44 Al Hydrox/Mg Hydrox/Simethicone (Maalox Max Susp) 15 ml Q4H PRN PO 08/15/16 01:45 09/14/16 01:44 Magnesium Hydroxide (Milk Of Magnesia Susp) 30 ml Q6H PRN PO 08/15/16 01:45 09/14/16 01:44 Polyethylene (Miralax Powder Packet) 17 gm DAILY PRN PO 08/15/16 01:45 09/14/16 01:44 08/17/16 12:30 17 GM Ondansetron HCl (Zofran Inj) 4 mg Q6H PRN IV 08/15/16 01:45 09/14/16 01:44 Olanzapine (Zyprexa Zydis Od Tab) 1.25 mg HS PRN PO 08/15/16 01:45 09/14/16 01:44 08/22/16 20:30 1.25 MG Citalopram Hydrobromide 10 mg 10 mg DAILY PO 08/15/16 08:00 09/14/16 07:59 08/23/16 08:23 10 MG Furosemide/Syringe (Lasix Inj/ Syringe) 2 ml @ 4 mls/min BID17 IV 08/15/16 20:00 09/14/16 19:59 08/23/16 08:26 4 MLS/MIN Potassium Chloride (Klor-Con M10) 10 meq Q2D@0900 PO 08/17/16 09:00 09/16/16 08:59 08/23/16 08:27 10 MEQ Finasteride (Proscar Tab) 5 mg QAM PO 08/21/16 08:00 09/20/16 07:59 08/23/16 08:24 5 MG Rivaroxaban (Xarelto Tab) 15 mg BID PO 08/22/16 20:00 09/21/16 19:59 08/23/16 08:25 15 MG Cephalexin Monohydrate (Keflex Cap) 500 mg TID PO 08/23/16 14:00 08/28/16 13:59 08/23/16 13:18 500 MG Laboratory Data Labs: Last 24 Hours Test 08/23/16 06:35 Activated Partial Thromboplast Time 33.1 SECONDS Partial Thromboplastin Ratio 1.3 Assessment and Plan 89 y/o M with Hx of Parkinson disease, HTN, BPH. Presents from home with weakness and confusion. He was found to UTI and B/L lower ext swelling/ tenderness delirium, (acute metabolic encephalopathy) / weakness - likely due to UTI , today lethargic and slightly confused, mental status state weans on and off CT head was negative for bleed UTI present on admission, ecoli resistant to levofloxacin culture results (growing ecoli resistant to levofloxacin) continue imipenem , day # 7 /14 (can be switched to bactrim on discharge) normal procalcitonin level urology consulted and started finasteride, cont dan 7-10 days, TOV renal US: Cyst left kidney Parkinson disease cont Sinemet HTN - cont home meds Left lower extremity DVT seen from the common femoral vein through the popliteal vein. start xarelto for 3-6 months dispo: d/c to Rehab when bed is available
[2016-08-23 16:19] VITALS: BP 138/81; PULSE 79; TEMP 36.6; O2SAT 96
[2016-08-23] MEDS: TAMSULOSIN HCL 0.4 MG CAP PO SCH (20:36)
[2016-08-23] MEDS: FLUTICASONE PROPIONATE NA SPR 16 GM BTL NAE SCH (20:37)
[2016-08-23] MEDS: CARBIDOPA/LEVODOPA 25/100MG EXT REL TAB PO SCH (20:39)
[2016-08-24 00:25] VITALS: BP 120/69; PULSE 89; TEMP 37.1; O2SAT 93
[2016-08-24] MEDS: LEVOTHYROXINE 25 MCG TAB PO SCH (06:19)
[2016-08-24 07:46] VITALS: BP 115/61; PULSE 83; TEMP 37.1; O2SAT 95
[2016-08-24] MEDS: RANITIDINE HCL 150 MG TAB PO SCH (07:55)
[2016-08-24] MEDS: METOPROLOL TARTRATE 25 MG TAB PO SCH (07:55)
[2016-08-24] MEDS: DOCUSATE SODIUM 100 MG CAP PO SCH (07:55)
[2016-08-24] MEDS: CYANOCOBALAMIN 500 MCG TAB (VIT B-12) PO SCH (07:55)
[2016-08-24] MEDS: CEPHALEXIN MONOHYDRATE 500 MG CAP PO SCH ×2 (07:56→13:27)
[2016-08-24] MEDS: TRIAMCINOLONE ACET 0.1% CR 15 GM TUBE EXT SCH (07:58)
[2016-08-24] MEDS: FUROSEMIDE INJ 20 MG in SYRINGE 0 ML IV SCH (07:58)
[2016-08-24] MEDS: LISINOPRIL 2.5 MG TAB PO SCH (07:59)
[2016-08-24 08:00] VITALS: O2SAT 95
[2016-08-24] MEDS: FINASTERIDE 5 MG TAB PO SCH (08:00)
[2016-08-24] MEDS: RIVAROXABAN TAB 15 MG TAB PO SCH (08:00)
[2016-08-24] MEDS: CITALOPRAM 20 MG TAB PO SCH (08:00)
[2016-08-24] MEDS: CARBIDOPA/LEVODOPA 25/100MG TAB PO SCH ×2 (08:42→13:05)
[2016-08-24 10:37] VITALS: BP 115/61; PULSE 83; TEMP 37.1; O2SAT 95
--- NOTE | 2016-08-24 11:00 | Progress Note ---
Subjective Subjective Date of Service: Aug 24, 2016. Pt evaluation today including: conversation w/ patient, physical exam, chart review, review of studies, review of inpatient medication list Problem List Medical Problems: (1) Fecal impaction Status: Acute (2) K92.0 Status: Acute (3) Metabolic encephalopathy Status: Acute (4) Non-ST elevation [place] (NSTEMI) Status: Acute (5) Pneumonia Status: Acute (6) Stool guaiac positive Status: Acute (7) Upper GI bleed Status: Acute (8) Weakness Status: Acute Review of Systems Constitutional: No fever ENT: No hearing loss Respiratory: No cough Abdomen: No pain Male : No dysuria Psychiatric: No depression symptoms Endo: No fatigue Physical Exam Vital Signs Vital Signs Past 24 Hours: Date Time Temp Pulse Resp B/P Pulse Ox O2 Delivery O2 Flow Rate FiO2 08/24/16 10:37 37.1 83 18 95 Room Air 08/24/16 08:00 95 Room Air 08/24/16 07:46 37.1 83 18 115/61 95 Room Air 08/24/16 00:25 37.1 89 18 120/69 93 Room Air 08/24/16 00:00 Room Air 08/23/16 16:19 36.6 79 20 138/81 96 Room Air 08/23/16 16:00 Room Air Physical Exam: General Appearance: WD/WN, no apparent distress Eyes: bilateral eyes normal inspection ENT: hearing grossly normal, pharynx normal Neck: supple, no JVD Respiratory/Chest: chest non-tender, normal breath sounds Cardiovascular: no edema, no gallop Abdomen: non tender Extremities: normal inspection 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: alert Skin: normal color Medications Medications: Current Inpatient Medications Medications (Trade) Dose Ordered Sig/[facility] Route Start Time Stop Time Status Last Admin Dose Admin Docusate Sodium (coLACE CAP) 100 mg BID PO 08/15/16 08:00 09/14/16 08:59 08/24/16 07:55 100 MG Carbidopa/Levodopa (Sinemet 25/ 100MG Tab) 2 tab TID@0900,1300,1700 PO 08/15/16 09:00 09/14/16 08:59 08/24/16 08:42 2 TAB Carbidopa/Levodopa (Sinemet Cr 25/ 100MG Tab) 1 tab HS PO 08/15/16 21:00 09/14/16 20:59 08/23/16 20:39 1 TAB Levothyroxine Sodium (Synthroid Tab) 25 mcg DAILYBB PO 08/15/16 06:30 09/14/16 06:29 08/24/16 06:19 25 MCG Lisinopril (Zestril Tab) 2.5 mg QAM PO 08/15/16 08:00 09/14/16 08:59 08/24/16 07:59 2.5 MG Metoprolol Tartrate (Lopressor Tab) 25 mg QAM PO 08/15/16 08:00 09/14/16 08:59 08/24/16 07:55 25 MG Ranitidine HCl (zANTac TAB) 150 mg DAILY PO 08/15/16 08:00 09/14/16 08:59 08/24/16 07:55 150 MG Ranitidine HCl (zANTac TAB) 75 mg QPM PO 08/15/16 21:00 09/14/16 20:59 08/23/16 20:36 75 MG Senna (Senokot Tab) 17.2 mg QAM PRN PO 08/15/16 01:45 09/14/16 01:44 08/22/16 08:25 17.2 MG Tamsulosin HCl (Flomax Cap) 0.4 mg QPM PO 08/15/16 21:00 09/14/16 20:59 08/23/16 20:36 0.4 MG Triamcinolone Acetonide (Kenalog 0.1% Cream) 1 appln DAILY EXT 08/15/16 08:00 09/14/16 08:59 08/24/16 07:58 1 APPLN Cyanocobalamin (Vitamin B-12 Tab) 1,000 mcg QAM PO 08/15/16 08:00 09/14/16 08:59 08/24/16 07:55 1,000 MCG Fluticasone Propionate (Flonase Nasal [place]) 2 sprays HS DIETER 08/15/16 21:00 09/14/16 20:59 08/23/16 20:37 2 SPRAYS Acetaminophen (Tylenol Tab) 650 mg Q4H PRN PO 08/15/16 01:45 09/14/16 01:44 08/24/16 09:28 650 MG Al Hydrox/Mg Hydrox/Simethicone (Maalox Max Susp) 15 ml Q4H PRN PO 08/15/16 01:45 09/14/16 01:44 Magnesium Hydroxide (Milk Of Magnesia Susp) 30 ml Q6H PRN PO 08/15/16 01:45 09/14/16 01:44 Polyethylene (Miralax Powder Packet) 17 gm DAILY PRN PO 08/15/16 01:45 09/14/16 01:44 08/17/16 12:30 17 GM Ondansetron HCl (Zofran Inj) 4 mg Q6H PRN IV 08/15/16 01:45 09/14/16 01:44 Olanzapine (Zyprexa Zydis Od Tab) 1.25 mg HS PRN PO 08/15/16 01:45 09/14/16 01:44 08/22/16 20:30 1.25 MG Citalopram Hydrobromide 10 mg 10 mg DAILY PO 08/15/16 08:00 09/14/16 07:59 08/24/16 08:00 10 MG Furosemide/Syringe (Lasix Inj/ Syringe) 2 ml @ 4 mls/min BID17 IV 08/15/16 20:00 09/14/16 19:59 08/24/16 07:58 4 MLS/MIN Potassium Chloride (Klor-Con M10) 10 meq Q2D@0900 PO 08/17/16 09:00 09/16/16 08:59 08/23/16 08:27 10 MEQ Finasteride (Proscar Tab) 5 mg QAM PO 08/21/16 08:00 09/20/16 07:59 08/24/16 08:00 5 MG Rivaroxaban (Xarelto Tab) 15 mg BID PO 08/22/16 20:00 09/21/16 19:59 08/24/16 08:00 15 MG Cephalexin Monohydrate (Keflex Cap) 500 mg TID PO 08/23/16 14:00 08/28/16 13:59 08/24/16 07:56 500 MG Assessment and Plan 89 y/o M with Hx of Parkinson disease, HTN, BPH. Presents from home with weakness and confusion. He was found to UTI and B/L lower ext swelling/ tenderness delirium, (acute metabolic encephalopathy) / weakness - likely due to UTI , today lethargic and slightly confused, mental status state weans on and off CT head was negative for bleed/cva UTI present on admission, ecoli resistant to levofloxacin culture results (growing ecoli resistant to levofloxacin) continue imipenem , day # 8 /14 (can be switched to bactrim on discharge) normal procalcitonin level urology consulted and started finasteride, cont dan 7-10 days, TOV renal US: Cyst left kidney Parkinson disease cont Sinemet HTN - cont home meds Left lower extremity DVT seen from the common femoral vein through the popliteal vein. start xarelto for 3-6 months dispo: d/c to Rehab when bed is available full code
[2016-08-24] MEDS ORDERED: XRL15 PO (11:09)
[2016-08-24] MEDS ORDERED: KFL500 PO (11:09)
--- NOTE | 2016-08-24 11:13 | Discharge Instructions ---
Discharge Instructions Admission Reason for Admission: Ams, Uti Discharge Discharge Diagnosis / Problem: change of mental status, uti Discharge Goals Goal(s): Increase independence, Improve disease control, Diagnostic testing, Therapeutic intervention Activity Recommendations Activity Level: Assistance Required Therapies: Physical Therapy, Occupational Therapy . Additional Information Patient informed of condition: Yes Advance Directives: Yes DNR: No Level of Care: Skilled Communicable Disease: No Prognosis: Stable Rene Catheter: Yes (7 days. f.u urology 1 week) Instructions / Follow-Up Instructions / Follow-Up start xarelto 15 mg twice a day for 20 days, then 20 mg daily Current Hospital Diet Patient's current hospital diet: AHA Diet (Heart Healthy) Discharge Diet Recommended Diet: AHA Diet (Heart Healthy) Pending Studies Studies pending at discharge: no Physician Orders On Transfer POLST Discussion: Not Applicable Laboratory Results Hemoglobin A1c Test 08/17/16 07:39 Range/Units Estimated Average Glucose 105 mg/dl Hemoglobin A1c 5.3 4.5-5.6 % Lipid Panel Test 08/17/16 07:39 Range/Units Triglycerides Level 93 0-150 mg/dl Cholesterol Level 154 0-200 mg/dl HDL Cholesterol 60 mg/dl Cholesterol/HDL Ratio 2.6 LDL Cholesterol, Calculated 75 mg/dl Medical Emergencies . Who to Call and When: Medical Emergencies: If at any time you feel your situation is an emergency, please call 911 immediately. . Non-Emergent Contact Non-Emergency issues call your: Primary Care Provider Call Non-Emergent contact if: your pain is not controlled, you have any medication questions . . "Provider Documentation" section prepared by Kg Dang. Core Measure Problem Core Measures: None
--- NOTE | 2016-08-24 11:18 | Discharge Summary ---
Discharge Summary Date of Service Aug 24, 2016. Discharge Summary Admission Date: Aug 15, 2016 at 01:52 Discharge Date: Aug 24, 2016 Discharge Disposition: alf facility Principal Diagnosis: uti, change of mental status, dvt Immunizations: Have You Had Influenza Vaccine: Yes History of Tetanus Vaccine?: Unknown History of Pneumococcal: less than 10yrs ago. History of Hepatitis B Vaccine: No Medication Reconciliation New Medications: Cephalexin Monohydrate (Cephalexin) 500 Mg Cap 500 MG PO TID, #11 CAP Rivaroxaban (Xarelto) 15 Mg Tab 15 MG PO BID for 20 Days, TAB Continued Medications: Acetaminophen (Tylenol Arthritis Ext Rel) 650 Mg Cplt 650 MG PO TID, CAP Acetaminophen (Tylenol) 325 Mg Tab 325 MG PO TID, TAB Citalopram Hydrobromide (Citalopram Hydrobromide) 10 Mg Tab 10 MG PO DAILY for 90 Days Cyanocobalamin (Vitamin B12) 1,000 Mcg Tab 1000 MCG PO QAM Docusate Sodium (Colace) 100 Mg Cap 1 CAP PO BID for 30 Days, #60 CAP Dutasteride (Avodart) 0.5 Mg Cap 0.5 MG PO QAM, CAP Furosemide (Lasix) 20 Mg Tab 20 MG PO QAM for 90 Days, #90 TAB 1 Refill Levodopa/Carbidopa (Sinemet 25MG/100MG) 1 Ea Tab 2 TAB PO TID@0900,1300,1700 for 30 Days, TAB Levodopa/Carbidopa (Sinemet Cr 25MG/100MG) 1 Ea Tabcr 1 TAB PO HS, TAB Levothyroxine Sodium (Synthroid) 25 Mcg Tab 25 MCG PO DAILY, TAB Lisinopril (Zestril) 5 Mg Tab 2.5 MG PO QAM, TAB Magnesium Hydroxide (Milk Of Magnesia) 30 Ml Susp 30 ML PO DAILY PRN for NO BM 3 DAYS, ML Melatonin (Melatonin) 5 Mg Tab 5 MG PO HS Metoprolol Tartrate (Lopressor) (Lopressor) 25 Mg Tab 25 MG PO QAM, TAB HOLD FOR HR <60 OR SBP <90 Mometasone Furoate (Nasal) (Mometasone Furoate) 50 Mcg/Act Spr 2 SPRAY DIETER HS Polyethylene Glycol 3350 (Miralax) 1 Pow Pow 17 GM PO DAILY for 30 Days, 5 Refills Potassium Ext Rel (Klor-Con) 20 Meq Tabcr 10 MEQ PO Q2D, TAB Ranitidine (Zantac) 150 Mg Tab 150 MG PO DAILY, TAB Ranitidine HCl (Zantac) 150 Mg Tab 75 MG PO QPM Senna (Senokot) 8.6 Mg Tab 2 TAB PO QAM PRN for Constipation, TAB Simethicone (Gas-X) 80 Mg Chw 80 MG PO QID PRN for GAS Tamsulosin Hcl (Flomax) 0.4 Mg Cap 0.4 MG PO QPM, CAP Triamcinolone Acet (Aristocort 0.1%) 90 Appln/30 Gm Cr 1 APPLN TOP DAILY for SCALP Referrals At Discharge Follow up Referrals: Physician Referral - Within 2 Weeks with Loni Hodges MD Urologist Referral - Within 1 Week with Jesus Kang M.D. Discharge Exam Review of Systems: Constitutional: No chills ENT: No unusual epistaxis Respiratory: No sputum Abdomen: No nausea Musculoskeletal: No muscle pain Genitourinary - Male: No hematuria Psychiatric: No depression symptoms Endocrine: No fatigue Physical Exam: General Appearance: no apparent distress Eyes: normal inspection ENT: hearing grossly normal Neck: supple Respiratory/Chest: lungs clear Cardiovascular: no JVD Abdomen / GI: non tender Extremities: normal capillary refill 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: no motor/sensory deficits, normal reflexes Skin: normal color, no rash Hospital Course 89 y/o M with Hx of Parkinson disease, HTN, BPH. Presents from home with weakness and confusion. He was found to UTI and B/L lower ext swelling/ tenderness delirium, (acute metabolic encephalopathy) / weakness, likely due to UTI , today lethargic and slightly confused, mental status state weans on and off CT head was negative for bleed/cva UTI present on admission, ecoli resistant to levofloxacin culture results (growing ecoli resistant to levofloxacin) continue imipenem , day # 8 /14 ( switched to keflex on discharge) normal procalcitonin level urology consulted and started finasteride, cont dan 7-10 days, TOV, f/u urology 1 weeks renal US: Cyst left kidney Parkinson disease cont Sinemet HTN - cont home meds Left lower extremity DVT seen from the common femoral vein through the popliteal vein. start xarelto for 3-6 months, start xarelto 15 mg twice a day for 20 days, then 20 mg daily dispo: d/c to Rehab , f/u urology 1 week full code Total Time Spent: Greater than 30 minutes This includes examination of the patient, discharge planning, medication reconciliation, and communication with other providers. Discharge Instructions Please refer to the electronic Patient Visit Report (Discharge Instructions) for additional information. Additional Copies To Jesus Kang M.D.; Loni Hodges MD
== END 2016-08-24 14:36 | DRG 689 ==
LOC: ENRESERVTM → ENRESERVDT → EDBD 22:13 → C.EDC 22:15 → C.MS4W 08-15 01:52 → UNDOADMIN 08-15 01:52
PROVIDERS: ADMIT Internal Medicine; ATTEND Hospitalist
DX: N39.0 Urinary tract infection, site not specified (principal); G93.41 Metabolic encephalopathy; I82.412 Acute embolism and thrombosis of left femoral vein; I82.432 Acute embolism and thrombosis of left popliteal vein; B96.20 Unspecified Escherichia coli [E. coli] as the cause of diseases classified elsewhere; Z16.23 Resistance to quinolones and fluoroquinolones; G20 Parkinson's disease; F02.80 Dementia in other diseases classified elsewhere, unspecified severity, without behavioral disturbance, psychotic disturbance, mood disturbance, and anxiety; F01.50 Vascular dementia, unspecified severity, without behavioral disturbance, psychotic disturbance, mood disturbance, and anxiety; I48.0 Paroxysmal atrial fibrillation; I11.9 Hypertensive heart disease without heart failure; N40.0 Benign prostatic hyperplasia without lower urinary tract symptoms; Z51.81 Encounter for therapeutic drug level monitoring; Z79.899 Other long term (current) drug therapy; Z82.5 Family history of asthma and other chronic lower respiratory diseases